=== PATIENT | male | born 1960 | race Caucasian/White ===

== ENCOUNTER 2020-07-21 10:52 | Outpatient (CLI) | payer MEDICARE, SELFPAY ==
--- NOTE | ~2020-07-21 | XR_ITS ---
EXAMINATION: XR chest 2V 07/21/2020 11:13 INDICATION: Dyspnea PROCEDURE: 2 view chest COMPARISON: No prior studies for comparison. FINDINGS: The lungs are clear. The cardiomediastinal silhouette is within normal limits. There are no pleural effusions. There is no pneumothorax suspected. IMPRESSION: 1: NO ACUTE CARDIOPULMONARY DISEASE. Reviewed, dictated and finalized at location B. [facility]
== END 2020-07-21 10:53 | disposition home or self-care (01) ==
PROVIDERS: PCP Internal Medicine; Visit Provider Nurse Practitioner Family
DX: R06.00 Dyspnea, unspecified (principal); R05 Cough
CPT/HCPCS: 71046

== ENCOUNTER 2020-08-23 12:05 | Outpatient (CLI) | payer MEDICARE, SELFPAY ==
--- NOTE | 2020-08-23 12:59 | ECHO_ITS ---
Patient Info Name: Tom Solis Age: 59 years : 1960 Gender: Male Ht: 71 in Wt: 310 lbs BSA: 2.72 m2 HR: 86 bpm BP: 160 / 100 mmHg Technical Quality: Good Exam Date: 08/23/2020 1:13 PM Exam Location: [facility] Patient Status: Outpatient Admit Date: 08/23/2020 Staff Ordering Physician: Adam Leyva APRN Commutator Tester: Kathya Martin RDCS Attending Provider: Adam Leyva APRN Referring Physician: Gordon ELLINGTON; Exam Type: CA echo doppler color flow Study Info Indications - lobato Complete two-dimensional, color flow and Doppler transthoracic echocardiogram is performed. Summary 1. Complete two-dimensional, color flow and Doppler transthoracic echocardiogram is performed. 2. Left ventricular chamber dimension is normal. 3. Left ventricular systolic function is normal, estimated at 60-65%. 4. The left ventricular diastolic function is grade I diastolic dysfunction. 5. No pulmonary hypertension, estimated pulmonary arterial systolic pressure is 36 mmHg. Left Ventricle Tissue doppler is not performed. Left ventricular chamber dimension is normal. Left ventricular systolic function is normal, estimated at 60-65%. The left ventricular diastolic function is grade I diastolic dysfunction. Right Ventricle Right ventricular systolic function is normal. TAPSE is not performed. Right ventricular chamber dimension is normal. Left Atria Left atrial chamber dimension is normal. Right Atria Right atrial chamber dimension is normal. Aortic Valve The aortic valve is trileaflet. There is no aortic valve stenosis. There is no aortic valve regurgitation. Pulmonic Valve There is no pulmonic regurgitation. Mitral Valve There is no mitral valve stenosis. There is no mitral valve regurgitation. Tricuspid Valve There is no tricuspid valve regurgitation. No pulmonary hypertension, estimated pulmonary arterial systolic pressure is 36 mmHg. Pericardium/Pleural There is no pericardial effusion. Inferior Vena Cava Normal inferior vena cava with >50% collapse upon inspiration consistent with normal right atrial pressure, 5 mmHg. Aorta The aortic root size at the sinus of Valsalva is normal. Left Ventricular Outflow Tract Name Value Normal LVOT 2D LVOT Diameter 2.1 cm LVOT Doppler LVOT Peak Gradient 11 mmHg LVOT Mean Gradient 5 mmHg LVOT VTI 31 cm LVOT VTI/AV VTI Ratio 0.9 LVOT Stroke Volume 109 ml LVOT CO 20.1 l/min LVOT CI 7.4 l/min/m2 Pulmonic Valve Name Value Normal PV Doppler PV Peak Gradient 5 mmHg Mitral Valve Na
--- NOTE | 2020-08-23 16:23 | WPDSIXMINUTE ---
Six Minute Walk This is a 6 minutes walk test. The test was performed and interpreted in accordance with the 2014 ERS/ATS task force guidelines. Findings: The patient's resting room air oxygen saturation measured by pulse oximetry was 98% and her heart rate was 94 bpm. Patient ambulated for 290 meters and oxygen saturation remained 98 to 99%. Heart rate at the end of the study was 125 bpm. There are no prior studies for comparison.
--- NOTE | 2020-08-23 16:24 | P.PCNPFT_ITS ---
PFT Interpretation This is a pulmonary function test with pre and post-bronchodilator spirometry, plethysmography and diffusing capacity. The test was performed and results interpreted in accordance with the 2019 and 2005 ATS/ERS Task Force guidelines respectively using the Global Lung Function Initiative-2012 reference equations. Patient demonstrated good effort and c ooperation. Reproducibility criteria were met. The quality of the pre bronchodilator spirometry maneuver was Grade A and post bronchodilator spirometry maneuver was Grade C. Findings: Spirometry: there is decreased maximal expiratory airflow at low lung volumes with a mildly concave expiratory flow tracing. The contour the inspiratory flow tracing is normal. The pre bronchodilator FVC is 3.18 L, 65% predicted. The pre bronchodilator FEV1 is 2.49 L, 65% predicted. The FEV1: FVC ratio is 78. The post bronchodilator FVC is 3.6 to L representing a 14% increase. The post bronchodilator FEV1 is 2.8 L, representing a 16% increase. Of note, the slow vital capacity is 3.69 L and the FEV1:slow vital capacity ratio is 67%. Plethysmography: The total lung capacity is 7.90 L, 110% predicted. Functional residual capacity is 4.26 L, 115% predicted. The residual volume is 4.21 L, 189% predicted. Diffusing capacity: The absolute diffusion capacity is 26.8, 91% predicted. The diffusing capacity corrected for alveolar volume is 6.06, 142% predicted. Impression: In obese patients, the decreased expiratory air flows at low lung volumes with a normal FEV1:FVC ratio but a decreased FEV1:Slow vital capacity ratio of 67% coupled with a low FEV1 (65% predicted) indicates there is a moderate obstructive abnormality. There is significant improvement after inhaling a single dose of albuterol. The increase in residual volume is consistent with air trapping from an obstructive abnormality. The absolute diffusing capacity is normal and increased when corrected for alveolar volume. There are no prior studies for comparison
== END 2020-08-23 12:06 | disposition home or self-care (01) ==
PROVIDERS: PCP Internal Medicine; Visit Provider Nurse Practitioner Family
DX: R06.00 Dyspnea, unspecified (principal); R94.2 Abnormal results of pulmonary function studies
CPT/HCPCS: 93306; 94060; 94618; 94726; 94729

== ENCOUNTER 2020-10-24 08:43 | Outpatient (CLI) | payer MEDICARE, SELFPAY ==
--- NOTE | 2020-10-28 13:02 | WPDMETH ---
Methacholine Procedure Perform Procedure Performed Methacholine Challenge Methacholine Challenge Methacholine Challenge: Methacholine Challenge Test: This study met all criteria for ATS standards Interpretation: This is a positive methacholine challenge test with a PC 20 FEV1 of 1.90
== END 2020-10-24 08:44 | disposition home or self-care (01) ==
PROVIDERS: PCP Internal Medicine; Visit Provider Nurse Practitioner Family
DX: R06.00 Dyspnea, unspecified (principal); R94.2 Abnormal results of pulmonary function studies
CPT/HCPCS: 94070; J7674

== ENCOUNTER 2022-02-06 06:32 | Outpatient (CLI) | payer MEDICARE, SELFPAY ==
--- NOTE | ~2022-02-06 | CT_ITS ---
EXAMINATION: CT abdomen pelvis w con DATE: 02/06/2022 07:37 INDICATION: Abnormal PSA. Occasional prostate pain. TECHNIQUE: Computed tomography (CT) of the abdomen and pelvis was performed with 200 CC Omnipaque 350 intravenous contrast. Automated exposure control and iterative reconstruction technique were employe d. Exam dose: 3184.02 mGy-cm total exam DLP. COMPARISON: 01/15/2007 CT abdomen FINDINGS: The lung bases are clear of infiltrate or consolidation. Normal heart size. No pericardial or pleural effusion. The liver, spleen are unremarkable. Status post cholecystectomy. No bile duct dilatation. There is pa ncreatic atrophy. No pancreatic mass lesion or calcification or ductal dilatation. Normal morphology of the adrenal glands. There are parapelvic left renal cysts. There are a couple of approximately 8 mm exophytic left renal cysts. No urinary tract calculus or hydroureteronephrosis. The urinary bladder is unremarkable. There is mod erate prostate enlargement. Mild bilateral fat containing inguinal hernias. Normal caliber of the abdominal aorta. No intraperitoneal or retroperitoneal or pelvic mass lesion or adenopathy or ascites. Normal appendix. No bowel obstruction or intraperitoneal free air. Small fat-containing umbilical hernia. There is a supraumbilical ventral abdominal wall hernia with a pproximately 6.5 cm wide mouth, containing a loop of nonobstructed small bowel. Diffuse idiopathic skeletal hyperostosis of the thoracic spine. No suspicious osteolytic or osteoblastic lesions are noted. IMPRESSION: Moderate prostate enlargement Status post cholecystectomy Pancreatic atrophy Parapelvic and up to 8 mm exophytic cortical left renal cysts Mild bilateral fat containing inguinal hernias Supraumbilical up to 6.5 cm wide mouth ventral abdominal wall hernia containing a loop of nonobstruct ed small bowel Small fat-containing umbilical hernia Normal appendix Reviewed, dictated and finalized at Location A. Reviewed, dictated and finalized at location B. IMPRESSION: Moderate prostate enlargement Status post cholecystectomy Pancreatic atrophy Parapelvic and up to 8 mm exophytic cortical left renal cysts Mild bilateral fat containing inguinal hernias Supraumbilical up to 6.5 cm wide mouth ventral abdominal wall hernia containing a loop of nonobstructed small bowel Small fat-containing umbilical hernia Normal appendix
--- NOTE | ~2022-02-06 | NM_ITS ---
EXAMINATION: NM bone scan whole body DATE: 02/06/2022 13:01 INDICATION: Abnormal PSA level TECHNIQUE: 25.5 mCi Tc-99m HDP was administered intravenously. Delayed whole-body scintigrams were o btained. COMPARISON: Chest radiograph and CT abdomen and pelvis dated 02/06/22 and cervical spine radiographs d ated 08/01/2017 FINDINGS: Mild thoracic levoscoliosis. Likely degenerative joint centered uptake at the bilateral acromioclavic ular joints and knees and at the right L4-L5 facet joints where there is severe osteoarthritis eviden t on the prior radiographs. Mild uptake at the lower cervical spine corresponding to severe degenerat rashad disc disease on the prior radiographs. There is round region of mild uptake projecting over the s oft tissues of the inferior right buttock caudal to the level of the right hip and ischial tuberosity as well as a subtle linear region of increased activity projecting over the medial side of the more distal right thigh which appears to extend slightly beyond the level of the skin which are likely art ifactual, potentially urine contamination. No correlate identified in the region of the inferior righ t buttock on the CT images. No other suspicious foci of abnormal bone uptake to suggest metastatic di sease. IMPRESSION: 1. No evident metastatic disease. Reviewed, dictated and finalized at location A.
--- NOTE | ~2022-02-06 | XR_ITS ---
XR chest 2V DATE: 02/06/2022 06:52 INDICATION: Abnormal PSA TECHNIQUE: PA and lateral views COMPARISON: 07/21/2020 2 view chest FINDINGS: Normal heart size. No hilar or mediastinal enlargement. No pulmonary infiltrate or consolid ation, pleural effusion or pulmonary vascular congestion or pneumothorax. Status post lower anterior cervical spine surgical fusion. Degenerative spurring scoliosis of the thoracic and lumbar spine. IMPRESSION: No active cardiopulmonary disease Reviewed, dictated and finalized at location B.
[2022-02-06 07:09] LABS: Estimated Glomerular Filt Rate > 60
== END 2022-02-06 06:33 | disposition home or self-care (01) ==
PROVIDERS: PCP Internal Medicine; Visit Provider Urology
DX: R97.20 Elevated prostate specific antigen [PSA] (principal); N40.0 Benign prostatic hyperplasia without lower urinary tract symptoms; Z90.49 Acquired absence of other specified parts of digestive tract; N28.1 Cyst of kidney, acquired; K40.20 Bilateral inguinal hernia, without obstruction or gangrene, not specified as recurrent; K42.9 Umbilical hernia without obstruction or gangrene
CPT/HCPCS: 71046; 74177; 78306; A9561; Q9967

== ENCOUNTER 2022-04-03 11:52 | Outpatient (CLI) | payer MEDICARE, SELFPAY ==
--- NOTE | 2022-04-03 13:07 | ECG_ITS ---
Measurements Intervals [place] Rate: 79 P: 19 SD: 130 QRS: 6 QRSD: 100 T: 29 QT: 336 QTc: 386 Interpretive Statements SINUS RHYTHM BASELINE ARTIFACT POOR R-WAVE PROGRESSION BORDERLINE ECG NO PREVIOUS ECG AVAILABLE FOR COMPARISON Electronically Signed On 04-03-2022 16:22:54 CDT by Rico Vazquez M.D.
[2022-04-03 13:51] LABS: Basophils Percent Auto 0.6 % (0.2-1.2); Eosinophils Absolute Auto 0.1 K/mm3 (0-0.3); Immature Granulocyte Absolute 0.02 K/mm3 (0.00-0.031); Immature Granulocyte Percent A 0.3 % (0-0.5); Lymphocytes Absolute Auto 1.66 K/mm3 (0.9-3.2); Lymphocytes Percent Auto 23.6 % (18.3-44.2); Mean Corpuscular HGB Conc 31.8 g/dl (32-36); Mean Corpuscular Hemoglobin 29.9 pg (26-34); Mean Platelet Volume 9.6 fl (7.4-10.4); Monocytes Absolute Auto 0.6 K/mm3 (0.1-0.6); Monocytes Percent Auto 9.1 % (2.6-8.5); Neutrophils Absolute Auto 4.6 K/mm3 (1.3-6.7); Neutrophils Percent Auto 65.4 % (45.5-73.1); Platelet Count Result 293 k/mm3 (150-375); Red Blood Count 4.68 M/mm3 (4.6-6.20); Red Cell Distribution Width 13.1 % (11.5-14.5)
[2022-04-03 14:00] LABS: Add Urine Microscopic? YES; Appearance Urine Cloudy (Clear); Bilirubin Urine Negative (Negative); Blood Urine Negative (Negative); Color Urine Yellow (Yellow); Glucose Urine UA Negative (Negative); Ketones Urine Negative (Negative); Leukocyte Esterase Ur Negative LEU/UL (Negative); Mucus Urine Rare /lpf; Nitrate Urine Negative (Negative); Protein Urine 2+ mg/dL (Negative); Specific Grav Ur 1.021 (1.001-1.035); Squamous Epithelial Cell Urine Occasional /hpf (Few); Urobilinogen Urine Negative mg/dL (<2.0); WBC Urine 0-3 /hpf
[2022-04-03 14:02] LABS: Prothrombin Time 12.6 Seconds (11.1-14.7)
[2022-04-03 14:03] LABS: Partial Thromboplastin Time 28.6 SECONDS (22.3-36.8)
[2022-04-03 14:09] LABS: Alanine Aminotransferase 48 U/L (6-50); Albumin Level 4.8 g/dL (3.5-5.1); Alkaline Phosphatase 88 U/L (38-126); Anion Gap 18 mmol/L (8-16); Aspartate Amino Transferase 41 U/L (17-59); Bilirubin,Total 0.5 mg/dL (0.2-1.3); Blood Urea Nitrogen 16 mg/dL (9-20); Carbon Dioxide 27 mmol/L (22-30); Chloride 98 mmol/L (98-107); Estimated Glomerular Filt Rate > 60; Glucose 93 mg/dL (65-110); Sodium 143 mmol/L (137-145)
== END 2022-04-03 11:53 | disposition home or self-care (01) ==
LOC: ANHSURGERY 11:58
PROVIDERS: PCP Internal Medicine; Visit Provider Urology
DX: C61 Malignant neoplasm of prostate (principal); Z01.818 Encounter for other preprocedural examination
CPT/HCPCS: 36415; 80053; 81001; 85025; 85610; 85730; 93005

== ENCOUNTER 2022-04-18 15:41 | Inpatient (IN) | payer MEDICARE, SELFPAY ==
--- NOTE | 2022-04-03 12:02 | PC.NURSE ---
Report to the Outpatient Waiting Room, entrance under the green pavilion located off [facility], at time __6:00AM on date ___04/18/22____. Planned Procedure Time: __7:30AM . Time changes happen often and if your time is changed the preop area will call you the afternoon before. - You and your visitor will be asked to self-screen and do not enter if you have any COVID symptoms. - We encourage only one visitor and NO visitors under age 16 are allowed at this time. Your visitor will receive communication by the phone number that is given day of service. - The patient visitor is requested to social distance or may leave the building when not with patient due to restrictions. - A mask is required within the hospital. Patients may have clear liquids (water, carbonated beverages, clear teas, apple juice) until 3 hours prior to surgery with a maximum of 20 ounces. - No food from midnight until time of surgery Take the following medications with a SIP of water the morning of surgery: __SYMBICORT INHALER, ALBUTEROL INHALER NEEDED, ESCITALOPRAM Medications to discontinue per physician ___HOLD ALL VITAMINS/SUPPLEMENTS 3 DAYS PRE-OP. PT STATES HOLD FOR [address] DAMIAN- LAST DOSE 04/11/22 Please no make-up, nail ugandan, hairspray, perfume, deodorant, or body powder the day of surgery. No jewelry (including any body piercings) or valuables the day of surgery, leave them at home. Please take a shower or bath the night before, or the morning of, surgery with an antibacterial soap. Wear comfortable, loose fitting clothing. Children are encouraged to wear pajamas. - Jewelry must be removed prior to entering the operating room. Rings and piercings that are not removed may be cut off. - The hospital will not accept responsibility for valuables. - Please leave all valuables, including medications, at home the day of surgery. If you are going home after surgery, a licensed grab driver must drive you home. - NO public transportation without another adult. - We recommend that an adult stay with you for 24 hours following discharge. - We also recommend that you do not drive, make important decision, drink alcoholic beverages, or take any drugs that were not prescribed by your health care provider for at least 24 hours after your discharge time.. Follow any additional instructions given to you from your surgeon. HIBICLENS SHOWER MORNING OF SURGERY FLEETS ENEMA/FOLLOW BOWEL PREP If you or anyone in your household have experienced Covid symptoms in the past week, please notify your surgeon or the nurse liaison at the phone number below for possible testing. Telephone instructions given to ___PATIENT and asked if any additional questions and then verbalized understanding. Patient advised to call surgeon office or pre surgery nurse liaison [phone] if any additional questions.
[2022-04-03 12:12] VITALS: BP 133/85; PULSE 81; RESP 18; TEMP 36.9; O2SAT 97; BMI 41.4
--- NOTE | 2022-04-12 08:14 | PM.IMHP ---
H&P: HPI History of Present Illness Date/Time: 04/12/22 08:14 Chief Complaint: Prostate cancer Narrative: 61-year-old recently found to have PSA of 42.9. Prostate ultrasound and biopsy revealed adenocarcinoma the prostate in 12 of 12 cores. The Barton grade varied from Chrissy 7 to Chrissy 8 with 2 cores having intraductal cancer components. Staging CT scan the abdomen and pelvis with contrast, bone scan and chest x-ray showed no evidence of metastatic disease. He does have, by both physical exam and CT scan a large ventral abdominal hernia. I have had careful discussion with the patient about therapeutic options for his high risk prostate cancer including radiation therapy with androgen deprivation and attempted robotic prostatectomy. He has opted to proceed with robotic prostatectomy. He has seen Dr. Tate consultation preoperatively who his agreed to assist in attempt repair of his ventral abdominal wall hernia. He is aware the risk of these procedures including, but not limited to, adverse cardiopulmonary events, persistent prostate cancer with need for additional / adjuvant therapy, rectal injury erectile dysfunction, urinary incontinence and recurrent ventral hernia. Review of Systems Cardiovascular: Cardiovascular: Denies chest pain, Denies lightheadedness, Denies palpitations and Denies dyspnea Respiratory: Respiratory: Denies dyspnea Gastrointestinal: Gastrointestinal: Denies diarrhea, Denies nausea and Denies vomiting Genitourinary: Genitourinary: Denies hematuria and Denies dysuria Endocrine: Endocrine: Denies palpitations PMFSH Past Medical History Medical History Asthma Benign essential hypertension BPH (benign prostatic hyperplasia) Chronic low back pain Diabetes A1C 06/27/18 = 6 Hx of gout Iron deficiency anemia Major depressive disorder, recurrent, unspecified Obstructive and reflux uropathy, unspecified DIONY (obstructive sleep apnea) Osteoarthritis of knee Prostate cancer RLS (restless legs syndrome) Surgical History Surgical History H/O cervical spine surgery History of bladder surgery Status post cholecystectomy Family History Family History Mother Hypertension Patient's mother is in good health Cerebrovascular accident Sibling Family history of allergic disorder Father Carcinoma of colon Patient's father is in good health Grandparent Diabetes mellitus Other Asthma Family history of cardiovascular disease Social History Social History Smoking packs per day: 0.5 Smoking cigarettes per day: 10.0 Years smoked: 10 Smoking pack-years: 5.00 Smoking status: Former smoker Tobacco type: cigarettes Second hand tobacco smoke exposure: Yes () Smoking end date: 12/08/99 Alcohol intake: never Substance use: never Substance use type: does not use Additional living arrangements comments: Gender identity (if verbalized by the patient): Male Spiritual care concerns: No Meds Home Medications and Allergies Home Medications Medication Instructions Recorded Confirmed Type finasteride 5 mg tablet 5 mg PO DAILY 10/28/19 04/03/22 History escitalopram oxalate 10 mg tablet 10 mg PO DAILY #90 tabs 07/16/21 04/03/22 Rx budesonide-formoterol HFA 80 See Rx Instructions .Route 09/18/21 04/03/22 Rx mcg-4.5 mcg/actuation aerosol .COMPLEX #30.6 grams inhaler (Symbicort) albuterol sulfate 90 mcg/actuation See Rx Instructions .Route 09/25/21 04/03/22 Rx aerosol inhaler .COMPLEX #51 grams fenofibrate 160 mg tablet See Rx Instructions .Route 11/12/21 04/03/22 Rx .COMPLEX #90 tabs losartan 50 mg tablet 50 mg PO DAILY #90 tabs 01/11/22 04/03/22 Rx cholecalciferol (vitamin D3) 1,250 1,250 mcg PO WEEKLY #12 caps
[2022-04-18] VITALS (12 sets, daily range): BP systolic 121–162; BP diastolic 68–86; PULSE 86–104; RESP 16–31; TEMP 36–37; O2SAT 92–98
[2022-04-18] MEDS: LACTATED RINGERS 1,000 ML 30 ML IV CONT ×2 (06:25→12:47)
[2022-04-18 06:42] LABS: Glucose Point of Care 108 mg/dl (65-105)
--- NOTE | 2022-04-18 07:02 | WPDANESEPPF ---
Anes - Initial Pre Proc Eval Procedure: Operation Date: 04/18/22 07:30 Proposed Procedures p Robotic Assisted Laparoscopic Prostatectomy with Bilateral Pelvic Lymph Node Dissection,with Foreskin Stretching Possible Dorsal Slit, - Lavelle Quintero MD s Robotic Assisted Incarcerated Incisional Hernia Repair with Mesh - Bridget Tate MD Date/Time: 04/18/22 07:02 Surgeon: Lavelle Quintero MD Pre Op Diagnosis: prostate cancer, [employer] Hernia Patient Data Age: 61 Gender: M Height: 1.8 m Weight: 132.7 kg Last Vital Signs Temp 36.9 C 04/03/22 12:12 Pulse 81 04/03/22 12:12 Resp 18 04/03/22 12:12 BP 133/85 04/03/22 12:12 Pulse Ox 97 04/03/22 12:12 O2 Del Method Room Air 04/03/22 12:12 Allergies Allergy/AdvReac Type Severity Reaction Status Date / Time allopurinol Allergy Unknown hives Verified 04/18/22 06:08 Home Medications Medication Instructions Recorded Confirmed Type finasteride 5 mg tablet 5 mg PO DAILY 10/28/19 04/18/22 History escitalopram oxalate 10 mg tablet 10 mg PO DAILY #90 tabs 07/16/21 04/18/22 Rx budesonide-formoterol HFA 80 See Rx Instructions .Route 09/18/21 04/03/22 Rx mcg-4.5 mcg/actuation aerosol .COMPLEX #30.6 grams inhaler (Symbicort) albuterol sulfate 90 mcg/actuation See Rx Instructions .Route 09/25/21 04/03/22 Rx aerosol inhaler .COMPLEX #51 grams fenofibrate 160 mg tablet See Rx Instructions .Route 11/12/21 04/18/22 Rx .COMPLEX #90 tabs losartan 50 mg tablet 50 mg PO DAILY #90 tabs 01/11/22 04/18/22 Rx cholecalciferol (vitamin D3) 1,250 1,250 mcg PO WEEKLY #12 caps 02/05/22 04/18/22 Rx mcg (50,000 unit) capsule metformin 1,000 mg tablet See Rx Instructions .Route 02/18/22 04/18/22 Rx .COMPLEX #180 tabs ropinirole 3 mg tablet See Rx Instructions .Route 02/22/22 04/18/22 Rx .COMPLEX #90 tabs ferrous sulfate 325 mg (65 mg See Rx Instructions .Route 03/08/22 04/18/22 Rx iron) tablet .COMPLEX #90 tabs hydrocodone 10 mg-acetaminophen 1 tablet PO Q6-8H PRN Pain 04/03/22 04/03/22 History 325 mg tablet hydrocodone 5 mg-acetaminophen 325 1 - 2 tablet PO Q6-8H PRN Pain 04/03/22 04/03/22 History mg tablet ufyftolm-agig-ycfjq acid 400 1 tablet PO DAILY 04/03/22 04/18/22 History mcg-lycopene 600 mcg-ginkgo 120 mg tablet Laboratory Tests 04/18/22 06:40 POC Capillary Glucose 108 mg/dl H mg/dl (65-105) Patient hx anesthesia problems: none Family hx anesthesia problems: none Results Review: All pre-operative results and documents have been reviewed as part of the pre-operative evaluation. [facility] Past Medical History Medical History Asthma Benign essential hypertension BPH (benign prostatic hyperplasia) Chronic low back pain Diabetes A1C 06/27/18 = 6 Hx of gout Iron deficiency anemia Major depressive disorder, recurrent, unspecified Obstructive and reflux uropathy, unspecified DIONY (obstructive sleep apnea) Osteoarthritis of knee Prostate cancer RLS (restless legs syndrome) Surgical History Surgical History H/O cervical spine surgery History of bladder surgery Status post cholecystectomy Family History Family History Mother Hypertension Patient's mother is in good health Cerebrovascular accident Sibling Family history of allergic disorder Father Carcinoma of colon Patient's father is in good health Grandparent Diabetes mellitus Other Asthma Family history of cardiovascular disease Social History Social History Smoking packs per day: 0.5 Smoking cigarettes per day: 10.0 Years smoked: 10 Smoking pack-years: 5.00 Smoking status: Former smoker Tobacco type: cigarettes Second hand tobacco smoke exposure: Yes () Smoking end
--- NOTE | 2022-04-18 07:21 | WPDHPUPDATE1 ---
History and Physical Update Update Date/Time: 04/18/22 07:21 History and Physical has been reviewed, including an updated exam of the patient. There are NO changes in the patient's condition. Risks, benefits, and alternatives have been discussed and questions answered. Patient agrees to proceed with procedure.
--- NOTE | 2022-04-18 07:29 | PM.IMHP ---
H&P: HPI History of Present Illness Date/Time: 04/18/22 07:29 Chief Complaint: prostate cancer, recurrent ventral incisional hernia Narrative: Tom is a 61 y/o male who presents to the office accompanied by his at the request of Dr. Quintero for evaluation of a bulge to the right and above his umbilicus. He states the bulge has been present for the past 6 months. He denies any pain or increase in size. He denies any issues with urinating or with BM's. Dr. Quintero would like to coordinate surgery, he will be doing a prostatectomy. Review of Systems Review of Systems: All systems reviewed & are unremarkable except as noted in HPI and below PMFSH Past Medical History Medical History Asthma Benign essential hypertension BPH (benign prostatic hyperplasia) Chronic low back pain Diabetes A1C 06/27/18 = 6 Hx of gout Iron deficiency anemia Major depressive disorder, recurrent, unspecified Obstructive and reflux uropathy, unspecified DIONY (obstructive sleep apnea) Osteoarthritis of knee Prostate cancer RLS (restless legs syndrome) Surgical History Surgical History H/O cervical spine surgery History of bladder surgery Status post cholecystectomy Family History Family History Mother Hypertension Patient's mother is in good health Cerebrovascular accident Sibling Family history of allergic disorder Father Carcinoma of colon Patient's father is in good health Grandparent Diabetes mellitus Other Asthma Family history of cardiovascular disease Social History Social History Smoking packs per day: 0.5 Smoking cigarettes per day: 10.0 Years smoked: 10 Smoking pack-years: 5.00 Smoking status: Former smoker Tobacco type: cigarettes Second hand tobacco smoke exposure: Yes () Smoking end date: 12/08/99 Alcohol intake: never Substance use: never Substance use type: does not use Living arrangements: with family Additional living arrangements comments: Gender identity (if verbalized by the patient): Male Spiritual care concerns: No Meds Home Medications and Allergies Home Medications Medication Instructions Recorded Confirmed Type finasteride 5 mg tablet 5 mg PO DAILY 10/28/19 04/18/22 History escitalopram oxalate 10 mg tablet 10 mg PO DAILY #90 tabs 07/16/21 04/18/22 Rx budesonide-formoterol HFA 80 See Rx Instructions .Route 09/18/21 04/03/22 Rx mcg-4.5 mcg/actuation aerosol .COMPLEX #30.6 grams inhaler (Symbicort) albuterol sulfate 90 mcg/actuation See Rx Instructions .Route 09/25/21 04/03/22 Rx aerosol inhaler .COMPLEX #51 grams fenofibrate 160 mg tablet See Rx Instructions .Route 11/12/21 04/18/22 Rx .COMPLEX #90 tabs losartan 50 mg tablet 50 mg PO DAILY #90 tabs 01/11/22 04/18/22 Rx cholecalciferol (vitamin D3) 1,250 1,250 mcg PO WEEKLY #12 caps 02/05/22 04/18/22 Rx mcg (50,000 unit) capsule metformin 1,000 mg tablet See Rx Instructions .Route 02/18/22 04/18/22 Rx .COMPLEX #180 tabs ropinirole 3 mg tablet See Rx Instructions .Route 02/22/22 04/18/22 Rx .COMPLEX #90 tabs ferrous sulfate 325 mg (65 mg See Rx Instructions .Route 03/08/22 04/18/22 Rx iron) tablet .COMPLEX #90 tabs hydrocodone 10 mg-acetaminophen 1 tablet PO Q6-8H PRN Pain 04/03/22 04/03/22 History 325 mg tablet hydrocodone 5 mg-acetaminophen 325 1 - 2 tablet PO Q6-8H PRN Pain 04/03/22 04/03/22 History mg tablet wapsoyjc-vwwc-jzinh acid 400 1 tablet PO DAILY 04/03/22 04/18/22 History mcg-lycopene 600 mcg-ginkgo 120 mg tablet Allergies Allergy/AdvReac Type Severity Reaction Status Date / Time allopurinol Allergy Unknown hives Verified 04/18/22 06:08 Vital Signs Vital Signs - 24 hr 04/18/22 07:10 Temperature 36.0 C L Pulse Ra
--- NOTE | 2022-04-18 07:33 | WPDHPUPDATE1 ---
History and Physical Update Update Date/Time: 04/18/22 07:33 History and Physical has been reviewed, including an updated exam of the patient. There are NO changes in the patient's condition. Risks, benefits, and alternatives have been discussed and questions answered. Patient agrees to proceed with procedure.
--- NOTE | 2022-04-18 10:52 | W.PM.PROC2 ---
Procedure Note - Detailed Date of Procedure 04/18/22 Pre-op Diagnosis Prostate cancer, Incarcerated ventral abdominal hernia, Penile foreskin adhesions Post-op Diagnosis Same Procedure Performed Lysis of the penile foreskin adhesions, robotic assisted radical prostatectomy and bilateral pelvic lymphadenectomy Surgeon Lavelle Quintero MD, Donovan Tate MD Anesthesia General Description of Procedure The patient was brought to the operative suite, where he was prepped and draped in routine sterile fashion while in a dorsal lithotomy, deep Trendelenburg position. The patient has phimosis with penile adhesion to the foreskin. We had talked about doing a circumcision but deferred because of the risk of developing of buried penis. I did free the adhesions with blunt dissection and stretch the foreskin with a hemostat. This made a significant difference in the mobility of the penile shaft. A supraumbilical 8 mm trocar was placed after insufflation of the abdomen with a Veress needle. Three robotic ports were then placed under direct vision. Two of these were placed in the right lower quadrant - 10 cm and 20 cm lateral to, and in line with, the umbilicus. A third robotic trocar was placed 10 cm to the left of the umbilicus, and 20 cm to the left of the umbilicus, a 12 mm standard laparoscopic trocar was placed to be used as an assistant associate professor port. Lastly, a 5 mm trocar was placed in the left upper quadrant midway between the umbilicus and the left robotic trocar. Attention was then turned to the prostatectomy. I opted for a posterior approach in this patient. An incision was made in the parietal peritoneum along the posterior bladder/posterior prostate about 2 cm above the reflection of the peritoneum over the anterior rectum. The seminal vesicles and vas deferens were immediately identified. Dissection is undertaken in a fashion so as to avoid electrocautery as much as possible, particularly near the tips of the seminal vesicles. Dissection was also carried out in the midline so as to avoid any encounters with the ureters. The vas deferens and the seminal vesicles were dissected in their entirety to the base of the prostate. The plane anterior to Denoviller's fascia, anterior to the rectum and posterior to the prostate was then developed. I then dropped the bladder by incising the anterior parietal peritoneum just lateral to the median umbilical ligaments bilaterally. The bladder was dropped from the anterior abdominal and pelvic wall. The endopelvic fascia was identified and incised bilaterally, allowing for dissection of the posterior-lateral aspect of the prostate. The puboprostatic ligaments were transected near their origin from the posterior pubic ramus. This posterior lateral dissection of the prostate is also undertaken in a fashion so as to avoid electrocautery as much as possible. The dorsal vein of the penis is then secured with an 0 -Vicryl ligature. Attention is then turned to the bladder neck. The anterior bladder neck is incised at the vesico-prostatic junction. The previously placed urethral catheter was drawn through the urethrotomy. A very small bladder neck was maintained throughout the remainder of this dissection. The posterior bladder neck was incised in a fashion so as to avoid any injury to the ureteral orifices. Again, the small aperture of the bladder neck was maintained. The previously dissected vas deferens and the seminal vesicles were brought through the posterior bladder neck incision. The lateral prostatic pedicles were then carefully dissected from the lateral aspect of the prostate bilaterally. The prostatic pedicles were secured with Weck clips and transected. The neurovascular bundles were carefully dissected from the posterior-lateral aspect of the prostate. The dorsal vein of the penis was incised with electrocautery. Using cold scissors, the urethra was incised. After withdrawing the previously placed urethral cathet
--- NOTE | 2022-04-18 12:54 | W.PM.PROC2 ---
Procedure Note - Detailed Date of Procedure 04/18/22 Pre-op Diagnosis prostate cancer, incarcerated incisional hernia Post-op Diagnosis Same Procedure Performed Robotic assisted repair incarcerated incisional hernia with mesh Surgeon Bridget Tate MD Anesthesia General Indications 61 year old male presenting with incarcerated incisional hernia and prostate cancer Findings incarcerated supraumbilical hernia measuring approximately 6.5 cm Description of Procedure The patient was in the operating room placed in the modified lithotomy position. The patient was already under general anesthesia secondary to previously performed robotic assisted prostatectomy by Dr. Quintero, please see his full operative report for details that procedure. A time-out was then done to verify the patient's identity as well as the procedure being performed. The patient had a previously placed 12 mm left lower quadrant port. The camera was placed through this port site and under direct visualization, I placed 2 additional 8 mm ports in the left mid and upper abdomen. The robot was then docked to the 3 port sites. I then went to the robotic console. I began by identifying the hernia. A moderate-sized incarcerated hernia was noted in the supraumbilical region. Using graspers, I was able to reduce this hernia. The hernia was noted to contain a large amount of preperitoneal fat and omentum. Once reduced, I also reduced and dissected out the hernia sac. I then closed the approximately 6.5 cm defect with 0 strata fix suture. I then placed a 6x8 [address] mesh into the abdominal cavity. The positional stitch was placed in the middle of the mesh and brought up centering the mesh over the defect. Once this was done, I used 2 0 V lock suture x 3 to circumferentially suture the mesh to the abdominal. Once the mesh was completely sutured in, I was happy with our tension-free repair. The mesh was noted to have good overlap of the defect. I then removed the positioning device. At this point, the robot was undocked. I then slightly enlarged the 12 mm port site in the left lower quadrant and removed the specimen bag containing the prostate and lymph nodes. I then closed the 12 mm port site with a running PDS at the fascial level. All port sites were then closed with 4 O Monocryl subcuticular suture. The patient tolerated the procedure well, is extubated in the operating room postoperative, and transferred to the recovery room in stable condition. Implants 6x[address] mesh Estimated Blood Loss 5 Drains No Packing No Pathology None sent Complications No immediate complications Condition Stable Disposition PACU [facility] Billing Surgery - Charge Forward: Surgery Billing
[2022-04-18 13:03] LABS: Glucose Point of Care 134 mg/dl (65-105)
[2022-04-18] MEDS: fentaNYL CITRATE INJ (*CRX) 100 MCG/2 ML VIAL 25 MCG IV PUSH ×5 (13:13→13:46)
--- NOTE | 2022-04-18 14:12 | ADMGEN ---
This patient, Tom Solis, was admitted to Medical Room 348-. Patient/family oriented to hospital policies and general routines including ID bracelet, bed and alarms, visiting hours, pain management, procedures, bathroom and other care routines, personal items, smoking policy, room service/diet, and visiting hours. Information on how to activate the Rapid Response Team has been discussed. Patient/Family are encouraged to report perceived risks to care and to ask questions if they do not understand what they are told or what they should do.
[2022-04-18] MEDS: LACTATED RINGERS 1,000 ML 125 ML IV CONT (14:28)
[2022-04-18] MEDS: KETOROLAC 30 MG/ML VIAL (*BKC) IV PUSH ×2 (16:44→22:33)
[2022-04-18 16:49] LABS: Glucose Point of Care 137 mg/dl (65-105)
--- NOTE | 2022-04-18 17:10 | PC.NURSE ---
home meds reviewed in pre-op and MD has already addressed meds, reviewed list for accuracy with pt
[2022-04-18] MEDS: metFORMIN HCL 500 MG TABLET 1000 MG BY MOUTH (18:14)
[2022-04-18] MEDS: FENOFIBRATE 160 MG TABLET PO (18:14)
[2022-04-18] MEDS: rOPINIRole HCL 1 MG TABLET 3 MG BY MOUTH (18:15)
[2022-04-18] MEDS: FLUTICASONE/SALMETEROL 45-21 MCG (*SP) INHALER 2 PUFF INHALATION (20:20)
[2022-04-18] MEDS: FERROUS SULFATE 324 MG TABLET BY MOUTH (22:36)
[2022-04-18 23:32] LABS: Glucose Point of Care 109 mg/dl (65-105)
[2022-04-19 00:11] VITALS: BP 136/67; PULSE 87; RESP 18; TEMP 37; O2SAT 99
[2022-04-19] MEDS: HYDROmorphone HCL INJ (*CRX) 1 MG/ML SYR 0.5 MG IV PUSH ×5 (02:21→15:22)
[2022-04-19 04:41] VITALS: BP 128/64; PULSE 95; RESP 20; TEMP 36.2; O2SAT 98
[2022-04-19] MEDS: LACTATED RINGERS 1,000 ML 125 ML IV CONT (05:21)
[2022-04-19 06:09] LABS: Anion Gap 14 mmol/L (8-16); Blood Urea Nitrogen 19 mg/dL (9-20); Calcium 7.8 mg/dL (8.4-10.2); Carbon Dioxide 27 mmol/L (22-30); Chloride 102 mmol/L (98-107); Estimated CRCL calculation 108 ml/min; Estimated Glomerular Filt Rate > 60; Glucose 115 mg/dL (65-110); Potassium 3.8 mmol/L (3.4-5.0); Sodium 143 mmol/L (137-145)
[2022-04-19 06:18] LABS: Hematocrit 35.7 % (42.0-52.0); Hemoglobin 11.3 g/dL (14.0-18.0)
--- NOTE | 2022-04-19 07:31 | WPDUROPN2 ---
Progress Note: A&P Assessment and Plan (1) Prostate cancer: Code(s): C61 - Malignant neoplasm of prostate Status: Acute Assessment and Plan: Doing as expected POD #1 RALP and ventral abd. hernia repair. Increase diet/ambulation this morning. Anticipate discharge this afternoon. Subjective Subjective Date/Time Seen: 04/19/22 07:31 Mod. abd. pain but otherwise w/o n/v or other c/o. Review of Systems Cardiovascular: Cardiovascular: Denies chest pain, Denies lightheadedness, Denies palpitations and Denies dyspnea Respiratory: Respiratory: Denies dyspnea Gastrointestinal: Gastrointestinal: Denies belching, Denies diarrhea, Denies nausea, Denies vomiting and Reports other (normal bs and passing flatus) Genitourinary: Genitourinary: Denies hematuria and Denies dysuria Endocrine: Endocrine: Denies palpitations Objective Data Vital Signs Vital Signs: Vital Signs - 24 hr 04/18/22 12:47 04/18/22 13:00 04/18/22 13:15 Temperature 98.1 F Pulse Rate 86 95 98 Respiratory Rate 16 16 22 H Blood Pressure 140/85 156/77 H 162/86 H Pulse Oximetry 96 98 96 Oxygen Delivery Simple Face Mask Simple Face Mask Simple Face Mask Oxygen Flow Rate 8 8 8 Fraction of Inspired Oxygen 04/18/22 13:30 04/18/22 13:45 04/18/22 14:15 Temperature 98.2 F Pulse Rate 101 H 104 H 96 Respiratory Rate 20 31 H 16 Blood Pressure 145/83 H 139/82 137/78 Pulse Oximetry 96 92 97 Oxygen Delivery Room Air Nasal Cannula Oxygen Flow Rate 2 Fraction of Inspired Oxygen 04/18/22 14:30 04/18/22 15:00 04/18/22 16:00 Temperature 98.6 F 98.6 F 97.9 F Pulse Rate 96 97 99 Respiratory Rate 19 18 18 Blood Pressure 131/82 156/82 H 152/72 H Pulse Oximetry 98 97 98 Oxygen Delivery Oxygen Flow Rate Fraction of Inspired Oxygen 04/18/22 21:09 04/18/22 20:49 04/19/22 00:11 Temperature 97.6 F 98.6 F Pulse Rate 87 87 Respiratory Rate 18 18 Blood Pressure 121/68 136/67 Pulse Oximetry 97 96 99 Oxygen Delivery Room Air Oxygen Flow Rate Fraction of Inspired Oxygen 04/19/22 04:41 Temperature 97.1 F L Pulse Rate 95 Respiratory Rate 20 Blood Pressure 128/64 Pulse Oximetry 98 Oxygen Delivery Oxygen Flow Rate Fraction of Inspired Oxygen Intake/Output Intake/Output: Intake & Output 04/16/22 04/17/22 04/18/22 04/19/22 23:59 23:59 23:59 23:59 Intake Total 2840 340 Output Total 960 Balance 2840 -620 Meds/Results Medications: Active Medications Generic Name Dose Route Start Last Admin Trade Name Freq PRN Reason Stop Dose Admin Albuterol 1 - 2 puff 04/18/22 14:15 Albuterol Sulfate (*Sp) Aerosol 1 Puff INHALATION Q4-6H PRN SHORTNESS OF BREATH OR WHEEZIN Dextrose 12.5 gm 04/18/22 14:15 Dextrose 50% 25 Gm/50 Ml Syringe IV PUSH PRN PRN Hypoglycemia Protocol Escitalopram Oxalate 10 mg 04/19/22 09:00 Escitalopram Oxalate 10 Mg Tablet PO DAILY ELENA Fenofibrate 160 mg 04/18/22 14:30 04/18/22 18:14 Fenofibrate 160 Mg Tablet PO 160 mg DAILY ELENA Administration Ferrous Sulfate 324 mg 04/18/22 21:00 04/18/22 22:36 Ferrous Sulfate 324 Mg Tablet BY MOUTH 324 mg Q12HR ELENA Administration Glucagon 1 mg 04/18/22 14:15 Glucagon For Inj 1 Mg Vial IM PRN PRN Hypoglycemia Protocol Glucose 15 gm 04/18/22 14:15 Glucose Oral Gel 15 Gm Of Glucse In 37.5 Gm Tube PO PRN PRN Hypoglycemia Protocol Hydromorphone HCl 0.5 mg 04/18/22 22:36 04/19/22 05:22 Hydromorphone Hcl Inj (*Crx) 1 Mg/Ml Syr IV PUSH 0.5 mg Q2H PRN Administration Pain Rated 7-10 Hyoscyamine 0.125 mg 04/18/22 11:04 Hyoscyamine Sulfate 0.125 Mg Tablet SUBLINGUAL Q4H PRN Bladder Spasm Lactated Ringer's 1,000 mls @ 125 mls/hr 04/18/22 11:05 04/19/22 05:21 Lr - Lactated Ringers Iv IV CONT 125 mls/hr .Q8H ELENA Administration Acetaminophen 1,000 mg in 100 mls @ 400 mls/hr
[2022-04-19 08:08] LABS: Glucose Point of Care 123 mg/dl (65-105)
[2022-04-19] MEDS: FLUTICASONE/SALMETEROL 45-21 MCG (*SP) INHALER 2 PUFF INHALATION ×2 (08:52→20:20)
[2022-04-19] MEDS: LOSARTAN POTASSIUM 50 MG TABLET PO (09:32)
[2022-04-19] MEDS: ESCITALOPRAM OXALATE 10 MG TABLET PO (09:32)
[2022-04-19] MEDS: metFORMIN HCL 500 MG TABLET 1000 MG BY MOUTH ×2 (09:33→17:27)
[2022-04-19] MEDS: FERROUS SULFATE 324 MG TABLET BY MOUTH ×2 (09:33→20:57)
[2022-04-19] MEDS: levoFLOXacin 500 MG TABLET PO (09:33)
[2022-04-19] MEDS: FENOFIBRATE 160 MG TABLET PO (09:33)
[2022-04-19 12:19] LABS: Glucose Point of Care 134 mg/dl (65-105)
[2022-04-19 12:49] VITALS: BP 100/58; PULSE 119; RESP 20; TEMP 36.6; O2SAT 97
[2022-04-19 17:08] LABS: Glucose Point of Care 116 mg/dl (65-105)
[2022-04-19] MEDS: HYDROcodone/acetaminophen (*CRX) 10-325 MG TABLET 1 TAB PO (17:26)
[2022-04-19] MEDS: rOPINIRole HCL 1 MG TABLET 3 MG BY MOUTH (17:28)
[2022-04-19 21:43] VITALS: BP 134/75; PULSE 88; RESP 18; TEMP 36.6; O2SAT 97
[2022-04-19 21:50] LABS: Glucose Point of Care 135 mg/dl (65-105)
[2022-04-20] MEDS: HYDROcodone/acetaminophen (*CRX) 10-325 MG TABLET 1 TAB PO ×3 (00:40→12:36)
[2022-04-20 04:28] VITALS: BP 132/77; PULSE 85; RESP 20; TEMP 36.4; O2SAT 99
[2022-04-20 09:06] LABS: Glucose Point of Care 116 mg/dl (65-105)
[2022-04-20] MEDS: FERROUS SULFATE 324 MG TABLET BY MOUTH (09:20)
[2022-04-20] MEDS: ESCITALOPRAM OXALATE 10 MG TABLET PO (09:20)
[2022-04-20] MEDS: FENOFIBRATE 160 MG TABLET PO (09:20)
[2022-04-20] MEDS: metFORMIN HCL 500 MG TABLET 1000 MG BY MOUTH (09:21)
[2022-04-20] MEDS: LOSARTAN POTASSIUM 50 MG TABLET PO (09:21)
[2022-04-20] MEDS: levoFLOXacin 500 MG TABLET PO (09:21)
[2022-04-20] MEDS: FLUTICASONE/SALMETEROL 45-21 MCG (*SP) INHALER 2 PUFF INHALATION (09:35)
[2022-04-20 09:38] VITALS: O2SAT 97
--- NOTE | 2022-04-20 12:02 | WPDUROPN2 ---
Progress Note: A&P Assessment and Plan (1) Prostate cancer: Code(s): C61 - Malignant neoplasm of prostate Status: Acute Plan POD#2 s/p robotic prostatectomy and ventral hernia repair - tolerating reg diet - passing gas - pain controlled - discharge planning for today. Pt has script for norco from pain management which he filled 2.5 wks ago so [facility] would not fill Dr. Quintero' scrpt for norco. Patient and his state he has no more norco at home ( verified empty bottle) and state he was using it Q8hr for neck pain. I have given him 10 tabs of oxycodone 5 mg to use Q6hr PRN for next few days only for post-surgical pain. I emphasized the need for him to transition off of narcotics over the next few days and can use acetominophen as needed. I sent Dr. Quintero a message making him aware as well. Subjective Subjective Date/Time Seen: 04/20/22 12:02 Tolerating regular diet. +flatus this AM. Ready for discharge Exam Narrative: 61 yo male in NAD Const: General: comfortable and no acute distress HENMT: Face/Nose/Sinus: Normal nares present Mouth: Yes moist mucous membranes Eyes: General: appearance normal, both eyes and all related structures Resp: Effort & Inspection: normal respiratory effort GI: Inspection: non-distended Other: abdomen soft, ND; incisions c/d/i. : Other: rodriguez in place draining yellow urine Psych: Mental Status: mental status grossly normal Objective Data Vital Signs Vital Signs: Vital Signs - 24 hr 04/19/22 12:49 04/19/22 20:54 04/19/22 21:43 Temperature 36.6 C 36.6 C Pulse Rate 119 H 88 Respiratory Rate 20 18 Blood Pressure 100/58 L 134/75 Pulse Oximetry 97 97 Oxygen Delivery Autopap 04/20/22 04:28 04/20/22 01:50 04/20/22 09:38 Temperature 36.4 C Pulse Rate 85 Respiratory Rate 20 Blood Pressure 132/77 Pulse Oximetry 99 97 Oxygen Delivery Autopap Room Air Intake/Output Intake/Output: Intake & Output 04/17/22 04/18/22 04/19/22 04/20/22 23:59 23:59 23:59 23:59 Intake Total 2840 1060 1490 Output Total 1410 550 Balance 2840 -350 940 Meds/Results Medications: Active Medications Generic Name Dose Route Start Last Admin Trade Name Freq PRN Reason Stop Dose Admin Hydrocodone Bitart/Acetaminophen 1 tab 04/19/22 15:27 04/20/22 06:53 Hydrocodone/Acetaminophen (*Crx) 10-325 Mg Tablet PO 1 tab Q6H PRN Administration Pain Rated 7-10 Albuterol 1 - 2 puff 04/18/22 14:15 Albuterol Sulfate (*Sp) Aerosol 1 Puff INHALATION Q4-6H PRN SHORTNESS OF BREATH OR WHEEZIN Dextrose 12.5 gm 04/18/22 14:15 Dextrose 50% 25 Gm/50 Ml Syringe IV PUSH PRN PRN Hypoglycemia Protocol Escitalopram Oxalate 10 mg 04/19/22 09:00 04/20/22 09:20 Escitalopram Oxalate 10 Mg Tablet PO 10 mg DAILY ELENA Administration Fenofibrate 160 mg 04/18/22 14:30 04/20/22 09:20 Fenofibrate 160 Mg Tablet PO 160 mg DAILY ELENA Administration Ferrous Sulfate 324 mg 04/18/22 21:00 04/20/22 09:20 Ferrous Sulfate 324 Mg Tablet BY MOUTH 324 mg Q12HR ELENA Administration Glucagon 1 mg 04/18/22 14:15 Glucagon For Inj 1 Mg Vial IM PRN PRN Hypoglycemia Protocol Glucose 15 gm 04/18/22 14:15 Glucose Oral Gel 15 Gm Of Glucse In 37.5 Gm Tube PO PRN PRN Hypoglycemia Protocol Hyoscyamine 0.125 mg 04/18/22 11:04 Hyoscyamine Sulfate 0.125 Mg Tablet SUBLINGUAL Q4H PRN Bladder Spasm Dextrose 1,000 mls @ 100 mls/hr 04/18/22 14:15 Dextrose 5% 1,000 Ml IVPB PRN PRN Hypoglycemia Protocol Insulin Aspart 2 - 5 units 04/18/22 14:15 04/20/22 09:19 Insulin Aspart (*Bkc) 100 Units/Ml SUB-Q Not Given TIDWM ELENA Protocol Levofloxacin 500 mg 04/19/22 09:00 04/20/22 09:21 Levofloxacin 500 Mg Tablet PO 500 mg DAILY ELENA Administration Losartan Potassium 50 mg 04/19/22 09:00 04/20/22 09:21 Losartan Potassium
[2022-04-20 12:27] LABS: Glucose Point of Care 97 mg/dl (65-105)
--- NOTE | 2022-05-19 07:53 | PM.DS ---
DS: Admitting Diagnosis Discharge Date 04/20/22 Admitting Diagnosis Prostate cancer DS: Summary Hospital Course Hospital Course: This patient was admitted on the morning of his planned robotic prostatectomy.? This procedure was uneventful, as was his postoperative course.? By the evening of the procedure he was sitting at the bedside in tolerating a liquid diet.? The following morning he was ambulating freely and tolerating regular food.? His catheter drainage remained essentially clear throughout.? His postoperative hemoglobin and serum creatinine were unremarkable.? At the time of discharge he has been instructed in appropriate care for his Tucker catheter with both a leg bag and bedside bag.? He will be discharged with plans to follow-up in 1 week with a cystogram. Time Spent with Patient Time attestation: Total time spent providing and/or coordinating discharge services: DS: Data Data Completed and Pending Completed studies during hospitalization: Pending at discharge 04/18/22 11:08 Surgical [PTH] Routine Discharge Plan Discharge Attending physician on discharge: Lavelle Quintero Consulting providers: Bridget Tate ; Carolee Butler Discharging Clinician: Lavelle Quintero Patient Disposition: Home Health Service Activity: other - see discharge instructions Wound Care Instructions: other - see discharge instructions Discharge Instructions: 1) Tucker catheter -> leg bag / bedside bag at night. 2) No lifting/straining >15lbs. x6 weeks. 3) No driving x1-week. 4) Keep abdominal incisions dry until Saturday 04/21 afternoon. 5) Resume normal, pre-operative diet. 6) My office will contact regarding follow-up in 1-week with cystogram. Per Care Coordination Patient has been accepted to have [facility] for RN. ([place] location) [phone]. [facility] is scheduled to see pt next week. RN please fax completed discharge instrucntions to [phone] Dr Butler called you in 10 tabs of oxycodone 5mg tabs to your pharmacy. You may take 1 tab every 6 hours while needed for pain. Do not tahe norco with oxycodone Patient Instructions: Antibiotic Form Stand Alone Forms: General Discharge Information Follow-up/Referrals: Lavelle Quintero MD [Physician] - Discharge Medications: New docusate sodium [Colace] 100 mg capsule 100 mg PO DAILY Qty: 30 0RF hyoscyamine sulfate 0.125 mg tablet 0.125 mg PO Q6H PRN (Reason: bladder spasms) Qty: 20 2RF Continued budesonide-formoterol [Symbicort] 80-4.5 mcg/actuation HFA aerosol inhaler See Rx Instructions .ROUTE .COMPLEX Qty: 30.6 3RF Dose Instruction: USE 2 INHALATIONS BY MOUTH EVERY 12 HOURS , RINSE AND SPIT Rx Instructions: USE 2 INHALATIONS BY MOUTH EVERY 12 HOURS , RINSE AND SPIT albuterol sulfate 90 mcg/actuation HFA aerosol inhaler See Rx Instructions .ROUTE .COMPLEX Qty: 51 2RF Dose Instruction: USE 1 TO 2 INHALATIONS BY MOUTH EVERY 4 TO 6 HOURS NEEDED FOR SHORTNESS OF BREATH OR WHEEZING Rx Instructions: USE 1 TO 2 INHALATIONS BY MOUTH EVERY 4 TO 6 HOURS NEEDED FOR SHORTNESS OF BREATH OR WHEEZING fenofibrate 160 mg tablet See Rx Instructions .ROUTE .COMPLEX Qty: 90 1RF Dose Instruction: TAKE 1 TABLET BY MOUTH DAILY Rx Instructions: TAKE 1 TABLET BY MOUTH DAILY losartan 50 mg tablet 50 mg PO DAILY Qty: 90 1RF Rx Instructions: takes in am metformin 1,000 mg tablet See Rx Instructions .ROUTE .COMPLEX Qty: 180 1RF Dose Instruction: TAKE 1 TABLET BY MOUTH TWICE DAILY Rx Instructions: TAKE 1 TABLET BY MOUTH TWICE DAILY ropinirole 3 mg tablet See Rx Instructions .ROUTE .COMPLEX Qty: 90 4RF Dose Instruction: TAKE 1 TABLET BY MOUTH 1 TO 2 HOURS BEFORE BEDTIME. Rx Instructions: TAKE 1 TABLET BY MOUTH 1 TO 2 HOURS BEFORE BEDTIME. ferrous sulfate 325 mg (65 mg iron) tablet
== END 2022-04-20 14:28 | disposition home health service (06) | DRG 707 ==
LOC: ANHSURGERY 15:51 → ANH3MED 15:51
PROVIDERS: Surgery; Admitting Provider Urology; PCP Internal Medicine; Visit Provider Urology
PROC: 0VT04ZZ Resection of Prostate, Percutaneous Endoscopic Approach (ICD-10-PCS; CPT 55867; principal; 2022-04-18 07:30)
DX: C61 Malignant neoplasm of prostate (principal); K43.0 Incisional hernia with obstruction, without gangrene; F33.9 Major depressive disorder, recurrent, unspecified; N47.1 Phimosis; N40.0 Benign prostatic hyperplasia without lower urinary tract symptoms; I10 Essential (primary) hypertension; G47.33 Obstructive sleep apnea (adult) (pediatric); E11.9 Type 2 diabetes mellitus without complications; G25.81 Restless legs syndrome; M17.9 Osteoarthritis of knee, unspecified; M10.9 Gout, unspecified; D50.9 Iron deficiency anemia, unspecified; J45.909 Unspecified asthma, uncomplicated; M54.50 Low back pain, unspecified; G89.29 Other chronic pain; Z79.899 Other long term (current) drug therapy; Z87.891 Personal history of nicotine dependence
CPT/HCPCS: 36415; 80048; 82948; 85014; 85018; 86850; 86900; 86901; 88305; 88309; 94640; 94660; A9270; C1781; J0131; J0330; J1170; J1885; J2250; J2405; J2704; J3010; J7030; J7120; Q9968

== ENCOUNTER 2022-04-26 11:44 | Outpatient (CLI) | payer MEDICARE, SELFPAY ==
--- NOTE | 2022-04-23 13:10 | PM.DS ---
DS: Admitting Diagnosis Discharge Date 04/21/2022 Admitting Diagnosis Prostate cancer DS: Summary Hospital Course Hospital Course: This patient was admitted on the morning of his planned robotic prostatectomy. This procedure was uneventful, as was his postoperative course. By the evening of the procedure he was sitting at the bedside in tolerating a liquid diet. The following morning he was ambulating freely and tolerating regular food. His catheter drainage remained essentially clear throughout. His postoperative hemoglobin and serum creatinine were unremarkable. At the time of discharge he has been instructed in appropriate care for his Tucker catheter with both a leg bag and bedside bag. He will be discharged with plans to follow-up in 1 week with a cystogram. Time Spent with Patient Time attestation: Total time spent providing and/or coordinating discharge services: Discharge Plan Discharge Patient Disposition: Home, Self-Care Patient Instructions: Antibiotic Form Discharge Medications: No Action finasteride 5 mg tablet 5 mg PO DAILY Hold Instructions: at follow up appointment os-jpij-qqcpy-lycopene-ginkgo 400-600-120 mcg-mcg-mg Tablet 1 tablet PO DAILY Hold Instructions: at follow up appointment cephalexin 500 mg capsule 500 mg PO Q8H Qty: 15 0RF docusate sodium [Colace] 100 mg capsule 100 mg PO DAILY Qty: 30 0RF hyoscyamine sulfate 0.125 mg tablet 0.125 mg PO Q6H PRN (Reason: bladder spasms) Qty: 20 2RF hydrocodone-acetaminophen 10-325 mg tablet 1 tablet PO Q6H PRN (Reason: pain) Qty: 24 0RF escitalopram oxalate 10 mg tablet 10 mg PO DAILY Qty: 90 3RF Rx Instructions: takes in am budesonide-formoterol [Symbicort] 80-4.5 mcg/actuation HFA aerosol inhaler See Rx Instructions .ROUTE .COMPLEX Qty: 30.6 3RF Dose Instruction: USE 2 INHALATIONS BY MOUTH EVERY 12 HOURS , RINSE AND SPIT Rx Instructions: USE 2 INHALATIONS BY MOUTH EVERY 12 HOURS , RINSE AND SPIT albuterol sulfate 90 mcg/actuation HFA aerosol inhaler See Rx Instructions .ROUTE .COMPLEX Qty: 51 2RF Dose Instruction: USE 1 TO 2 INHALATIONS BY MOUTH EVERY 4 TO 6 HOURS NEEDED FOR SHORTNESS OF BREATH OR WHEEZING Rx Instructions: USE 1 TO 2 INHALATIONS BY MOUTH EVERY 4 TO 6 HOURS NEEDED FOR SHORTNESS OF BREATH OR WHEEZING fenofibrate 160 mg tablet See Rx Instructions .ROUTE .COMPLEX Qty: 90 1RF Dose Instruction: TAKE 1 TABLET BY MOUTH DAILY Rx Instructions: TAKE 1 TABLET BY MOUTH DAILY losartan 50 mg tablet 50 mg PO DAILY Qty: 90 1RF Rx Instructions: takes in am cholecalciferol (vitamin D3) 1,250 mcg (50,000 unit) capsule 1,250 mcg PO WEEKLY Qty: 12 1RF Rx Instructions: fridays metformin 1,000 mg tablet See Rx Instructions .ROUTE .COMPLEX Qty: 180 1RF Dose Instruction: TAKE 1 TABLET BY MOUTH TWICE DAILY Rx Instructions: TAKE 1 TABLET BY MOUTH TWICE DAILY ropinirole 3 mg tablet See Rx Instructions .ROUTE .COMPLEX Qty: 90 4RF Dose Instruction: TAKE 1 TABLET BY MOUTH 1 TO 2 HOURS BEFORE BEDTIME. Rx Instructions: TAKE 1 TABLET BY MOUTH 1 TO 2 HOURS BEFORE BEDTIME. ferrous sulfate 325 mg (65 mg iron) tablet See Rx Instructions .ROUTE .COMPLEX Qty: 90 0RF Dose Instruction: TAKE 1 TABLET BY MOUTH TWICE A DAY Rx Instructions: TAKE 1 TABLET BY MOUTH TWICE A DAY
--- NOTE | ~2022-04-26 | XR_ITS ---
EXAMINATION: XR cystogram DATE: 04/26/2022 12:25 INDICATION: Prostate cancer. TECHNIQUE: Water-soluble contrast was gravity-infused through the patient's Tucker catheter. Multiple fluoroscopic images were obtained. Fluoroscopy exposure time was 0.2 minutes. The total number of connor ges was 8. COMPARISON: CT abdomen and pelvis 02/06/2022 FINDINGS: There is no extraluminal leakage of contrast. No ureteral reflux. IMPRESSION: 1. No extraluminal leakage of contrast. Reviewed, dictated and finalized at location A. A COORDINATOR
== END 2022-04-26 11:45 | disposition home or self-care (01) ==
PROVIDERS: PCP Internal Medicine; Visit Provider Urology
DX: C61 Malignant neoplasm of prostate (principal)
CPT/HCPCS: 51600; 74430; Q9967

== ENCOUNTER 2023-01-20 02:59 | Day surgery (SDC) | payer MEDICARE, SELFPAY ==
[2023-01-10 10:00] VITALS: BMI 41.9
[2023-01-20 09:24] VITALS: BP 179/92; PULSE 62; RESP 20; TEMP 36.1; O2SAT 99
[2023-01-20 09:24] LABS: Glucose Point of Care 88 mg/dl (65-105)
[2023-01-20] MEDS: LACTATED RINGERS 1,000 ML 150 ML IV CONT (09:26)
--- NOTE | 2023-01-20 09:51 | P.PNAN_ITS ---
Anes - Initial Pre Proc Eval Procedure: Operation Date: 01/20/23 10:30 Proposed Procedures p Colonoscopy - Drew Ovalle MD Date/Time: 01/20/23 09:51 Surgeon: Drew Ovalle MD Pre Op Diagnosis: hx colon polyps Patient Data Age: 62 Gender: M Height: 1.8 m Weight: 133.2 kg Last Vital Signs Temp 96.9 F L 01/20/23 09:24 Pulse 62 01/20/23 09:24 Resp 20 01/20/23 09:24 BP 179/92 H 01/20/23 09:24 Pulse Ox 99 01/20/23 09:24 O2 Del Method Room Air 01/20/23 09:24 Allergies Allergy/AdvReac Type Severity Reaction Status Date / Time allopurinol Allergy Unknown hives Verified 01/20/23 09:23 Home Medications Medication Instructions Recorded Confirmed Type ferrous sulfate 325 mg (65 mg See Rx Instructions .Route 03/08/22 01/20/23 Rx iron) tablet .COMPLEX #90 tabs cholecalciferol (vitamin D3) 1,250 1,250 mcg PO WEEKLY #12 caps 05/09/22 01/20/23 Rx mcg (50,000 unit) capsule cyclobenzaprine 10 mg tablet 10 mg PO TID PRN muscle spasm #30 07/17/22 01/20/23 Rx tabs fenofibrate 160 mg tablet See Rx Instructions .Route 07/30/22 01/20/23 Rx .COMPLEX #90 tabs metformin 1,000 mg tablet See Rx Instructions .Route 08/27/22 01/20/23 Rx .COMPLEX #180 tabs budesonide-formoterol HFA 80 2 puff inhalation BID #10.2 grams 09/11/22 01/20/23 Rx mcg-4.5 mcg/actuation aerosol inhaler (Symbicort) escitalopram oxalate 10 mg tablet 10 mg PO DAILY #90 tabs 10/16/22 01/20/23 Rx albuterol sulfate 90 mcg/actuation See Rx Instructions .Route 11/25/22 01/20/23 Rx aerosol inhaler .COMPLEX #51 grams losartan 50 mg tablet 50 mg PO DAILY #90 tabs 12/16/22 01/20/23 Rx ropinirole 3 mg tablet See Rx Instructions .Route 12/30/22 01/20/23 Rx .COMPLEX #90 tabs diclofenac sodium 75 mg See Rx Instructions .Route 01/06/23 01/20/23 Rx tablet,delayed release .COMPLEX #60 tabs Laboratory Tests 01/20/23 09:21 POC Capillary Glucose 88 mg/dl (65-105) Patient hx anesthesia problems: none Family hx anesthesia problems: none Results Review: All pre-operative results and documents have been reviewed as part of the pre- operative evaluation. [facility] Past Medical History Medical History Asthma Benign essential hypertension BPH (benign prostatic hyperplasia) Chronic low back pain Diabetes A1C 06/27/18 = 6 Hx of gout Iron deficiency anemia Major depressive disorder, recurrent, unspecified Obstructive and reflux uropathy, unspecified DIONY (obstructive sleep apnea) Osteoarthritis of knee Prostate cancer RLS (restless legs syndrome) Surgical History Surgical History H/O cervical spine surgery History of bladder surgery Status post cholecystectomy Family History Family History Mother Hypertension Patient's mother is in good health Cerebrovascular accident Sibling Family history of allergic disorder Father Carcinoma of colon Patient's father is in goo
--- NOTE | 2023-01-20 09:53 | PM.HPGS ---
History of Present Illness History of Present Illness Consent: Risks, benefits, and alternatives have been discussed and questions answered. Patient agrees to proceed with procedure. Chief complaint: hx colon polyps Narrative: Tom Solis is a 62 year old male Presents for screening colonoscopy. Patient's current weight appetite and bowel movements are normal. Patient denies abdominal pain. He has had no bleeding. Family history noncontributory. Patient was found to have a benign hyperplastic colon polyp in 2017. Patient presents today for follow-up exam . Review of Systems Review of Systems: Review of systems noncontributory. [facility] Past Medical History Medical History Asthma Benign essential hypertension BPH (benign prostatic hyperplasia) Chronic low back pain Diabetes A1C 06/27/18 = 6 Hx of gout Iron deficiency anemia Major depressive disorder, recurrent, unspecified Obstructive and reflux uropathy, unspecified DIONY (obstructive sleep apnea) Osteoarthritis of knee Prostate cancer RLS (restless legs syndrome) Surgical History Surgical History H/O cervical spine surgery History of bladder surgery Status post cholecystectomy Family History Family History Mother Hypertension Patient's mother is in good health Cerebrovascular accident Sibling Family history of allergic disorder Father Carcinoma of colon Patient's father is in good health Grandparent Diabetes mellitus Other Asthma Family history of cardiovascular disease Social History Social History Smoking packs per day: 0.5 Smoking cigarettes per day: 10.0 Years smoked: 10 Smoking pack-years: 5.00 Smoking status: Former smoker Tobacco type: cigarettes Second hand tobacco smoke exposure: Yes () Smoking end date: 12/08/99 Alcohol intake: never Substance use: never Substance use type: does not use Lack of Transportation: No Lack of Food: Never True Current Housing: I Have Housing Concerned About Future Housing: No Difficulty Paying Gas/Electric Bills: No Difficulty Paying for Meds: No Currently Unemployed: No Education: High School Diploma/GED Difficulty w/ Childcare or Family Care: No Living arrangements: with family Additional living arrangements comments: Occupation/Education: unemployed Gender identity (if verbalized by the patient): Male Spiritual care concerns: No Meds Home Medications and Allergies Home Medications Medication Instructions Recorded Confirmed Type ferrous sulfate 325 mg (65 mg See Rx Instructions .Route 03/08/22 01/20/23 Rx iron) tablet .COMPLEX #90 tabs cholecalciferol (vitamin D3) 1,250 1,250 mcg PO WEEKLY #12 caps 05/09/22 01/20/23 Rx mcg (50,000 unit) capsule cyclobenzaprine 10 mg tablet 10 mg PO TID PRN muscle spasm #30 07/17/22 01/20/23 Rx tabs fenofibrate 160 mg tablet See Rx Instructions .Route 07/30/22 01/20/23 Rx .COMPLEX #90 tabs metformin 1,000 mg tablet See Rx Instructions .Route 08/27/22 01/20/23 Rx .COMPLEX #180 tabs budesonide-formoterol HFA 80 2 puff inhalation BID #10.2 grams 09/11/22 01/20/23 Rx mcg-4.5 mcg/actuation aerosol inhaler (Symbicort) escitalopram oxalate 10 mg tablet 10 mg PO DAILY #90 tabs 10/16/22 01/20/23 Rx albuterol sulfate 90 mcg/actuation See Rx Instructions .Route 11/25/22 01/20/23 Rx aerosol inhaler .COMPLEX #51 grams losartan 50 mg tablet 50 mg PO DAILY #90 tabs 12/16/22 01/20/23 Rx ropinirole 3 mg tablet See Rx Instructions .Route 12/30/22 01/20/23 Rx .COMPLEX #90 tabs diclofenac sodium 75 mg See Rx Instructions .Route 01/06/23 01/20/23 Rx tablet,delayed release .COMPLEX #60 tabs Allergies Allergy/AdvReac Type Severity
[2023-01-20 10:47] VITALS: BP 148/91; PULSE 66; RESP 19; O2SAT 97
[2023-01-20 10:57] VITALS: BP 160/99; PULSE 61; RESP 20; O2SAT 98
[2023-01-20 11:07] VITALS: BP 167/99; PULSE 64; RESP 22; O2SAT 97
== END 2023-01-20 11:15 | disposition home or self-care (01) ==
PROVIDERS: PCP Family Medicine; Visit Provider Internal Medicine Gastroenterology
PROC: 0DJD8ZZ Inspection of Lower Intestinal Tract, Via Natural or Artificial Opening Endoscopic (ICD-10-PCS; CPT 45378; principal; 2023-01-20 10:30)
DX: Z12.11 Encounter for screening for malignant neoplasm of colon (principal); K64.8 Other hemorrhoids; Z86.010 Personal history of colon polyps; E11.9 Type 2 diabetes mellitus without complications; J45.909 Unspecified asthma, uncomplicated; I10 Essential (primary) hypertension; D50.9 Iron deficiency anemia, unspecified; F33.9 Major depressive disorder, recurrent, unspecified; G47.33 Obstructive sleep apnea (adult) (pediatric); G25.81 Restless legs syndrome; Z79.84 Long term (current) use of oral hypoglycemic drugs; Z79.51 Long term (current) use of inhaled steroids; Z85.46 Personal history of malignant neoplasm of prostate; Z87.891 Personal history of nicotine dependence; E66.01 Morbid (severe) obesity due to excess calories; Z68.41 Body mass index [BMI] 40.0-44.9, adult
CPT/HCPCS: G0105; 82948; J2704; J7120

== ENCOUNTER 2023-02-17 13:07 | Outpatient (CLI) | payer MEDICARE, SELFPAY ==
--- NOTE | ~2023-02-17 | PE_ITS ---
EXAMINATION: PET_PETPSMAST_PT DATE: 02/17/2023 16:00 INDICATION: Prostate cancer. Rising PSA. TECHNIQUE: 9.177 mCi of piflufolastat F-18 was administered intravenously. Low dose computed tomograp hy (CT) images were acquired from the base of the brain to the proximal thighs for attenuation correc tion and anatomic localization. Automated exposure control was employed. Dose-length product (DLP) wa s 1167 mGy-cm. Positron emission tomography (PET) images were acquired in the same distribution. COMPARISON: CT abdomen and pelvis 02/06/2022, bone scan 02/06/2022 FINDINGS: Head/neck: There are no pathologically enlarged lymph nodes. There are changes of anterior fusion pro cedure in the cervical spine. There is mucosal thickening in the maxillary sinuses. Chest: There is no pneumonia or pleural effusion. The heart size is normal. No pericardial effusion. There are no pathologically enlarged lymph nodes. Abdomen/pelvis/proximal thighs: The liver, spleen, and pancreas are normal. The gallbladder is absent . The adrenal glands and right kidney are normal. There are cysts in left kidney measuring up to 19 m m. There is an umbilical hernia containing nonobstructed small bowel. There are changes of prostatect italo. There is a left-sided ventral hernia containing nonobstructed colon. The appendix is normal. The re are dilated loops of bowel. There is mild aortic atherosclerosis. There are no pathologically enla rged lymph nodes. There are normal-sized bilateral external iliac nodes with increased activity. For example, a 10 x 6 mm right external iliac node demonstrates maximum SUV of 10.1. There are a few woodwind reeds cutter darrian benign bone islands. IMPRESSION: 1. Normal-sized bilateral external iliac nodes with increased activity, consistent with metastatic di sease. 2. Umbilical hernia containing nonobstructed small bowel. 3. Left-sided ventral hernia containing nonobstructed colon. Reviewed, dictated and finalized at location A. IMPRESSION: 1. Normal-sized bilateral external iliac nodes with increased activity, consist ent with metastatic disease. 2. Umbilical hernia containing nonobstructed small bowel. 3. Left-sided ventral hernia containing nonobstructed colon.
== END 2023-02-17 13:08 | disposition home or self-care (01) ==
LOC: ANHIMG 13:12
PROVIDERS: PCP Family Medicine; Visit Provider Urology
DX: C61 Malignant neoplasm of prostate (principal); K43.9 Ventral hernia without obstruction or gangrene; K42.9 Umbilical hernia without obstruction or gangrene
CPT/HCPCS: 78815; A9595

== ENCOUNTER 2023-03-24 14:20 | Outpatient (CLI) | payer MEDICARE, SELFPAY ==
--- NOTE | ~2023-03-24 | MR_ITS ---
EXAMINATION: MR pelvis wo/w con DATE: 03/24/2023 15:56 INDICATION: Prostate cancer TECHNIQUE: Magnetic resonance imaging (MRI) of the pelvis was performed without and with 20 mL Multih ance intravenous contrast. Fullfield sequences of the pelvis included axial and coronal T2-weighted S S FSE, axial, sagittal and coronal 2D FIESTA, axial 2D FIESTA FS, axial SSFSE-IR BONNIE, axial dual-echo T1-weighted FSPGR, axial and coronal T1 weighted LAVA, 3D axial T2 Cube, axial diffusion-weighted SE with apparent diffusion coefficient (ADC) maps. Postcontrast sequences included a time course axial T1-weighted LAVA and sagittal and coronal T1-weighted LAVA. COMPARISON: None. FINDINGS: Status post prostatectomy with a few expected small foci of susceptibility artifact but no abnormal s oft tissue deposits to suggest residual/locally recurrent disease. Bladder is normal. Visualized port ion of the bowels and the lower poles of both kidneys are normal. No free fluid in the pelvis. No pat hologically enlarged pelvic or inguinal lymphadenopathy. There is increased fat within the bilateral inguinal canals which could be related to inguinal hernias or body habitus. There is normal bone gage ow signal throughout. IMPRESSION: 1. Status post prostatectomy for reported prostate cancer. No evident residual, recurrent or metastat ic disease. Reviewed, dictated and finalized at location A. IMPRESSION: 1. Status post prostatectomy for reported prostate cancer. No evident residual, recurrent or metastatic disease.
== END 2023-03-24 14:21 | disposition home or self-care (01) ==
PROVIDERS: PCP Nurse Practitioner; Visit Provider Radiology Radiation Oncology
DX: C61 Malignant neoplasm of prostate (principal)
CPT/HCPCS: 72197; A9577

== ENCOUNTER 2023-10-15 09:25 | Outpatient (CLI) | payer MEDICARE, SELFPAY ==
--- NOTE | ~2023-10-15 | XR_ITS ---
EXAMINATION: XR knee RT min 4V DATE: 10/15/2023 09:41 INDICATION: Chronic right knee pain. TECHNIQUE: 4 views of right knee were obtained. COMPARISON: Right knee radiographs 06/27/2022 FINDINGS: There is varus angulation at the knee. No fracture. There is severe osteoarthritis of media l and patellofemoral compartments and mild osteoarthritis of lateral compartment. No knee joint effus ion. IMPRESSION: 1. Severe right knee osteoarthritis. Reviewed, dictated and finalized at location A.
== END 2023-10-15 09:26 | disposition home or self-care (01) ==
PROVIDERS: PCP Family Medicine; Visit Provider Orthopaedic Surgery
DX: M17.11 Unilateral primary osteoarthritis, right knee (principal)
CPT/HCPCS: 73564

== ENCOUNTER 2024-07-19 12:45 | Outpatient (CLI) | payer MEDICARE, SELFPAY ==
--- NOTE | ~2024-07-19 | XR_ITS ---
Supine and upright views of the abdomen Clinical history: Abdominal pain Findings: Bowel gas pattern is nonspecific. No evidence for obstruction or free air. No abnormal mass lesion or calcification is seen. Osseous structures are intact. Impression: No significant abnormality is seen. Reviewed, dictated and finalized at [facility]. ICE BEREAVEMENT COORDINATOR Impression: No significant abnormality is seen.
--- OUTSIDE RECORDS SUMMARY | 2024-07-19 12:55 | XMS_ITS | Patient Health Summary ---
Author Organization [facility] Address [address] [place] [address] Care Team Providers Care Transfer Car Operator Name Role Phone Sandeep Ortiz MD Unavailable [phone] Armani Crooks MD Primary Care Provider Note from [facility],non-owned Affiliates and Associated Physician Practices is amultiple site organization consisting of ambulatory clinics and hospital sitesin [place], [place], [place] and [place]. This disclosure is being madepursuant to the Care Everywhere program and may not contain all information available regarding this patient. Last updated 18.[facility] Allergies * Allopurinol(Other) Medications * Be aware that medications may not be up to date on this document. Alwaysverify current medications with the patient. * ROPINirole (REQUIP) 5 MG tablet(Started 01/22/2010) Take 5 mg by mouth at bedtime. * Acetaminophen (TYLENOL PO) * metFORMIN (GLUCOPHAGE) 1000 MG tablet Take 1,000 mg by mouth 2 times daily with morning and evening meal * ferrous sulfate 325 (65 FE) MG tablet Take 325 mg by mouth 2 times daily with morning and evening meal * finasteride (PROSCAR) 5 MG tablet Take 5 mg by mouth once daily * fenofibrate (LOFIBRA) 160 MG tablet Take 160 mg by mouth once daily Take with largest meal of the day. * amLODIPine (NORVASC) 5 MG tablet(Started 08/02/2020) Take 1 (one) tablet by mouth once daily * losartan (COZAAR) 25 MG tablet(Started 08/02/2020) Take 1 (one) tablet by mouth once daily Active Problems Problem Noted Date Diagnosed Date Hyperkalemia 07/29/2020 Acute renal failure 07/29/2020 S/P laparoscopic cholecystectomy 03/23/2019 Chronic cholecystitis 03/23/2019 Generalized anxiety disorder 04/13/2014 Insomnia 11/10/2013 Obstructive sleep apnea 06/10/2013 Mixed hyperlipidemia 04/14/2013 Morbid obesity 04/14/2013 Essential hypertension 11/23/2012 Major depression 11/23/2012 Restless leg syndrome Immunizations * INFLUENZA VACCINE, TRIV. (AFLURIA, FLUZONE TRIVALENT; 6MO+) (IIV3)(Given 04/14/2013) * INFLUENZA VACCINE(Given 03/23/2014) Social History Tobacco Use Types Packs/Day Years Used Date Smoking Tobacco: Former Cigarettes 0.5 10 0 11/23/1984 - 11/23/1994 Smokeless Tobacco: Never Comments:Quit 10 yrs ago Alcohol Use Standard Drinks/Week Comments No 0 (1 standard drink = 0.6 oz pur e alcohol) Sex and Gender Information Value Date Recorded Sex Assigned at Not on file Gender Identity Not on file Sexual Orientation Not on file Last Filed Vital Signs Vital Sign Reading Time Taken Comments Blood Pressure 162/95 08/01/2020 8:56 AM OFFSHORING MANAGER Pulse 70 08/01/2020 8:56 AM OFFSHORING MANAGER Temperature 36.3 C (97.3 F) 08/01/2020 8:56 AM OFFSHORING MANAGER Respiratory Rate 18 08/01/2020 8:56 AM OFFSHORING MANAGER Oxygen Saturation 98% 08/01/2020 8:56 AM OFFSHORING MANAGER Inhaled Oxygen Concentration - - Weight 145.2 kg (320 lb) 07/29/2020 2:29 AM OFFSHORING MANAGER Height 180.3 cm (5' 11 ) 07/29/2020 2:29 AM OFFSHORING MANAGER Body Mass Index 44.63 07/29/2020 2:29 AM OFFSHORING MANAGER Procedures * CARDIAC RHYTHM STRIP ORDER(Performed 08/03/2020) * GLUCOSE - POINT OF CARE(Performed 08/01/2020) * OT EVAL AND TREAT(Performed 08/01/2020) * RENAL FUNCTION PANEL(Performed 08/01/2020) * GLUCOSE - POINT OF CARE(Performed 07/31/2020) * GLUCOSE - POINT OF CARE(Performed 07/31/2020) * GLUCOSE - POINT OF CARE(Performed 07/31/2020) * GLUCOSE - POINT OF CARE(Performed 07/31/2020) * PHOSPHORUS BLOOD(Performed 07/31/2020) * BASIC METABOLIC PANEL (CALCIUM TOTAL)(Performed 07/31/2020) * CBC W AUTO DIFFERENTIAL(Performed 07/31/2020) * COLLEEN PATH INTERP URINE(Performed 07/30/2020) * PROTEIN ELECTROPHORESIS PATH INTERP URINE(Performed 07/30/2020) * COLLEEN URINE(Performed 07/30/2020) * PROTEIN ELECTROPHORESIS URINE TIMED(Performed 07/30/2020) * GLUCOSE - POINT OF CARE(Performed 07/30/2020) * GLUCOSE - POINT OF CARE(Performed 07/30/2020) * GLUCOSE - POINT OF CARE(Performed 07/30/2020) * GLUCOSE - POINT OF CARE(Performed 07/30/2020) * GLUCOSE - POINT OF CARE(Performed 07/30/2020) * HEMOGLOBIN A1C(Performed 07/30/2020) * RENAL FUNCTION PANEL(Performed 07/30/2020) * MAGNESIUM BLOOD(Performed 07/30/2020) * CRYOGLOBULIN SCREEN W/ REFLEX(Performed 07/30/2020) * GLUCOSE - POINT OF CARE(Performed 07/29/2020) * GLUCOSE - POINT OF CARE(Performed 07/29/2020) * HEPATITIS SCREEN ACUTE(Performed 07/29/2020) * COLLEEN PATH INTERP BLOOD(Performed 07/29/2020) * PROTEIN ELECTROPHORESIS PATH INTERP BLOOD(Performed 07/29/2020) * RENAL FUNCTION PANEL(Performed 07/29/2020) * COLLEEN BLOOD PANEL(Performed 07/29/2020) * PROTEIN ELECTROPHORESIS BLOOD(Performed 07/29/2020) * COMPLEMENT C4(Performed 07/29/2020) * COMPLEMENT C3(Performed 07/29/2020) * ANCA VASCULITIS PANEL(Performed 07/29/2020) * TRINO BLOOD SCREEN W/REFLEX TITER(Performed 07/29/2020) * TROPONIN I(Performed 07/29/2020) * HEPATITIS B SURFACE ANTIBODY QUANT(Performed 07/29/2020) * XR CHEST POST PROCEDURE(Performed 07/29/2020) Performed for Acute renal failure, unspecified acute renal failure type (HCC), Hyperkalemia * ED CENTRAL LINE PLACEMENT(Performed 07/29/2020) * XR SHOULDER RIGHT 2VW OR MORE(Performed 07/29/2020) Performed for Acute renal failure, unspecified acute renal failure type (HCC) * HEMODIALYSIS INPATIENT(Performed 07/29/2020) * BASIC METABOLIC PANEL (CALCIUM TOTAL)(Performed 07/29/2020) * TROPONIN I(Performed 07/29/2020) * URINE MICROSCOPIC ONLY REFLEX TO CULTURE(Performed 07/29/2020) * URINALYSIS REFLEX MICROSCOPIC REFLEX CULTURE(Performed 07/29/2020) * OSMOLALITY URINE(Performed 07/29/2020) * CREATININE URINE RANDOM(Performed 07/29/2020) * SODIUM URINE RANDOM(Performed 07/29/2020) * CULTURE URINE(Performed 07/29/2020) * CT RENAL STONE(Performed 07/29/2020) Performed for Acute renal failure, unspecified acute renal failure type (HCC), Hyperkalemia * EKG 12-LEAD(Performed 07/29/2020) Performed for Acute renal failure, unspecified acute renal failure type (HCC), Hyperkalemia * PHOSPHORUS BLOOD(Performed 07/29/2020) * MAGNESIUM BLOOD(Performed 07/29/2020) * TROPONIN I(Performed 07/29/2020) * COMPREHENSIVE METABOLIC PANEL(Performed 07/29/2020) * CBC W AUTO DIFFERENTIAL(Performed 07/29/2020) * GLUCOSE - POINT OF CARE(Performed 03/24/2019) * GLUCOSE - POINT OF CARE(Performed 03/23/2019) * GLUCOSE - POINT OF CARE(Performed 03/23/2019) * ENDOTRACHEAL TUBE NOTE(Performed 03/23/2019) * ROBOTIC ASSISTED CHOLECYSTECTOMY(Performed 03/23/2019) * PATHOLOGY TISSUE EXAM (STL)(Performed 03/23/2019) Performed for Diagnosis unknown * GLUCOSE - POINT OF CARE(Performed 03/23/2019) * EKG 12-LEAD(Performed 03/22/2019) Performed for Preop examination * HEMOGLOBIN A1C(Performed 03/22/2019) Performed for Preop examination * CBC W AUTO DIFFERENTIAL(Performed 03/22/2019) Performed for Preop examination * IMAGING/RADIOLOGY/XRAY RESULTS ORDER(Performed 02/24/2019) * IMAGING/RADIOLOGY/XRAY RESULTS ORDER(Performed 02/24/2019) * LAB RESULTS ORDER(Performed 02/24/2019) * GENERAL HEALTH PANEL(Performed 11/11/2013) Performed for Unspecified essential hypertension, Mixed hyperlipidemia * LIPID PROFILE(Performed 11/11/2013) Performed for Mixed hyperlipidemia * LIPID PROFILE(Performed 04/14/2013) Performed for Mixed hyperlipidemia * COMPREHENSIVE METABOLIC PANEL(Performed 04/14/2013) Performed for Mixed hyperlipidemia * LIPID PROFILE(Performed 11/23/2012) Performed for Unspecified Essential Hypertension, Morbid obesity (HCC) * GENERAL HEALTH PANEL(Performed 11/23/2012) Performed for Unspecified Essential Hypertension, Morbid obesity (HCC) * IMAGING/RADIOLOGY/XRAY RESULTS ORDER(Performed 04/04/2011) * XR CERVICAL SPINE 2 OR 3VW(Performed 07/04/2010) Performed for Cervicalgia * XR CERVICAL SPINE 1VW(Performed 02/01/2010) Performed for Neck Pain, S/P Cervical Spinal Fusion * XR CERVICAL SPINE 1VW(Performed 02/01/2010) Performed for Neck Pain * XR CERVICAL SPINE 1VW(Performed 02/01/2010) Performed for Neck Pain * CARDIAC EKG ORDER(Performed 01/23/2010) * TYPE + SCREEN PANEL(Performed 01/22/2010) Performed for Preoperative Examination * URINALYSIS REFLEX TO MICROSCOPIC NO CULTURE(Performed 01/22/2010) Performed for Preoperative Examination * BASIC METABOLIC PANEL (CALCIUM TOTAL)(Performed 01/22/2010) Performed for Preoperative Examination * HGB HCT PANEL(Performed 01/22/2010) Performed for Preoperative Examination * NM BONE SCAN LIMITED AREA(Performed 01/17/2010) Performed for Neck Pain * IMAGING/RADIOLOGY/XRAY RESULTS ORDER(Performed 03/14/2009) Results * CARDIAC RHYTHM STRIP ORDER (08/03/2020 12:04 AM OFFSHORING MANAGER) Narrative 08/03/2020 12:04 AM OFFSHORING MANAGER Ordered by an unspecified provider. Scanned Document CARDIAC SERVICES ORD ERABLES * (ABNORMAL) GLUCOSE - POINT OF CARE (08/01/2020 9:10 AM OFFSHORING MANAGER) Only the most recent of16 resultswithin the time period is included. Glucose WB/POC 149(H) 70 - 106 mg/dL 08/01/2020 12:30 PM OFFSHORING MANAGER [facility] Specimen Type Venous 08/01/2020 12:30 PM OFFSHORING MANAGER [facility] Blood BLOOD SPECIMEN / Unknown 08/01/2020 9:10 AM OFFSHORING MANAGER 08/01/2020 12:30 PM OFFSHORING MANAGER Reginald Cade MD LAB - POINT OF CARE ORDERABLES [facility] [address] [place] [address] * RENAL FUNCTION PANEL (08/01/2020 4:02 AM OFFSHORING MANAGER) Only the most recent of3 resultswithin the time period is included. Glucose 96 70 - 105 mg/dL 08/01/2020 4:42 AM [facility] Sodium 140 136 - 145 mmol/L 08/01/2020 4:42 AM [facility] Potassium 3.6 3.5 - 5.1 mmol/L 08/01/2020 4:42 AM [facility] Chloride 105 98 - 107 mmol/L 08/01/2020 4:42 AM [facility] CO2 24 23 - 31 mmol/L 08/01/2020 4:42 AM [facility] Calcium 9.2 8.4 - 10.4 mg/dL 08/01/2020 4:42 AM [facility] Anion Gap 11 8 - 18 mmol/L 08/01/2020 4:42 AM [facility] Comment:Attention clinician: Reference Range change. BUN 25 8.4 - 25.7 mg/dL 08/01/2020 4:42 AM [facility] Creatinine 0.89 0.72 - 1.25 mg/dL 08/01/2020 4:42 AM [facility] Albumin 3.7 3.5 - 5.2 gm/dL 08/01/2020 4:42 AM [facility] Phosphorus 3.5 2.3 - 4.7 mg/dL 08/01/2020 4:42 AM [facility] Comment:Attention clinician: Reference Range change. eGFR by MDRD >60 >60 mL/min/1.7 3m2 08/01/2020 4:42 AM [facility] eGFR by MDRD >60 >60 mL/min/1.7 3m2 08/01/2020 4:42 AM [facility] Blood BLOOD SPECIMEN / Unknown Venipuncture / Unknown 08/01/2020 4:02 AM OFFSHORING MANAGER 08/01/2020 4:18 AM OFFSHORING MANAGER Rosi Tuttle MD LAB - CHEMISTRY [facility] Organization Address City/State/ZIP Co de Phone Number [facility] [address] [place] [address] * (ABNORMAL) CBC W AUTO DIFFERENTIAL (07/31/2020 4:55 AM OFFSHORING MANAGER) Only the most recent of3 resultswithin the time period is included. Pathologist [facility] WBC 7.5 4.4 - 10.7 x10E9/L 07/31/2020 5:35 AM [facility] WBC Corrected 07/31/2020 5:35 AM [facility] RBC 3.14(L) 3.80 - 5.40 x10E12/L 07/31/2020 5:35 AM [facility] Hemoglobin 9.2(L) 12.0 - 17.6 gm/dL 07/31/2020 5:35 AM [facility] Hematocrit 29.0(L) 35.2 - 51.7 % 07/31/2020 5:35 AM [facility] MCV 92.4 80.7 - 98.3 fl 07/31/2020 5:35 AM [facility] MCH 29.3 26.7 - 34.0 pg 07/31/2020 5:35 AM [facility] MCHC 31.7 30.8 - 35.9 gm/dL 07/31/2020 5:35 AM [facility] Platelet Count 278 153 - 416 x10E9/L 07/31/2020 5:35 AM [facility] RDW-CV 13.9 12.1 - 14.9 % 07/31/2020 5:35 AM [facility] MPV 9.4 9.4 - 12.9 fl 07/31/2020 5:35 AM [facility] Neutrophils % 71.6 44.0 - 73.0 % 07/31/2020 5:35 AM [facility] Lymphocytes % 14.3(L) 20.0 - 43.0 % 07/31/2020 5:35 AM [facility] Monocytes % 11.4 5.0 - 13.0 % 07/31/2020 5:35 AM [facility] Eosinophils % 2.1 0.0 - 6.0 % 07/31/2020 5:35 AM [facility] Basophils % 0.3 0.0 - 2.0 % 07/31/2020 5:35 AM [facility] Immature Granulocytes 0.3 0 - 1 % 07/31/2020 5:35 AM [facility] Neutrophil Absolute 5.34 2.01 - 7.14 x10E9/L 07/31/2020 5:35 AM [facility] Lymphocytes Absolute 1.07 1.07 - 3.94 x10E9/L 07/31/2020 5:35 AM [facility] Monocytes Absolute 0.85 0.26 - 1.07 x10E9/L 07/31/2020 5:35 AM [facility] Eosinophils Absolute 0.16 0 - 0.47 x10E9/L 07/31/2020 5:35 AM [facility] Basophils Absolute 0.02 0 - 0.08 x10E9/L 07/31/2020 5:35 AM [facility] Immature Granulocytes Absolute 0.02 0.00 - 0.06 x10E9/L 07/31/2020 5:35 AM [facility] nRBC Auto 0 /100 WBC 07/31/2020 5:35 AM [facility] Blood BLOOD SPECIMEN / Unknown Venipuncture / Unknown 07/31/2020 4:55 AM OFFSHORING MANAGER 07/31/2020 5:28 AM [facility] Florentin Cedillo DO LAB - HEMATOLOGY O RDERABLES [facility] [address] [place] [address] * (ABNORMAL) BASIC METABOLIC PANEL (CALCIUM TOTAL) (07/31/2020 4:55 AM [facility]) Only the most recent of3 resultswithin the time period is included. [facility] Glucose 96 70 - 105 mg/dL 07/31/2020 5:46 AM [facility] Sodium 141 136 - 145 mmol/L 07/31/2020 5:46 AM [facility] Potassium 3.8 3.5 - 5.1 mmol/L 07/31/2020 5:46 AM [facility] Chloride 104 98 - 107 mmol/L 07/31/2020 5:46 AM [facility] CO2 26 23 - 31 mmol/L 07/31/2020 5:46 AM [facility] Calcium 9.2 8.4 - 10.4 mg/dL 07/31/2020 5:46 AM [facility] Anion Gap 11 8 - 18 mmol/L 07/31/2020 5:46 AM [facility] Comment:Attention clinician: Reference Range change. BUN 32(H) 8.4 - 25.7 mg/dL 07/31/2020 5:46 AM [facility] Creatinine 0.97 0.72 - 1.25 mg/dL 07/31/2020 5:46 AM [facility] eGFR by MDRD >60 >60 mL/min/1.7 3m2 07/31/2020 5:46 AM [facility] eGFR by MDRD >60 >60 mL/min/1.7 3m2 07/31/2020 5:46 AM [facility] Blood BLOOD SPECIMEN / Unknown Venipuncture / Unknown 07/31/2020 4:55 AM OFFSHORING MANAGER 07/31/2020 5:28 AM OFFSHORING MANAGER Marline NUNEZ LAB - HORTICULTURE INSTRUCTOR RY ORDERABLES Performing Organization Address [facility] Co de Phone Number [facility] [address] [place] [address] * PHOSPHORUS BLOOD (07/31/2020 4:55 AM OFFSHORING MANAGER) Only the most recent of2 resultswithin the time period is included. Phosphorus 2.3 2.3 - 4.7 mg/dL 07/31/2020 5:46 AM OFFSHORING MANAGER [facility] Blood BLOOD SPECIMEN / Unknown Venipuncture / Unknown 07/31/2020 4:55 AM OFFSHORING MANAGER 07/31/2020 5:28 AM OFFSHORING MANAGER Marline Dickinson APRN-KENDRA LAB - HORTICULTURE INSTRUCTOR RY ORDERABLES Performing Organization Address City/State/[facility] Co de Phone Number [facility] [address] [place] [address] * COLLEEN PATH INTERP URINE (07/30/2020 10:49 PM OFFSHORING MANAGER) Case Report Pathologist Interpretation Report Case: [id number] Authorizing Provider: Rosi Tuttle MD Collected: 07/30/2020 10:49 PM Ordering Location: [address] [facility] Received: 08/01/2020 07:05 AM Pathologist: Rober Key MD Specimen: Urine Timed 08/01/2020 1:24 PM OFFSHORING MANAGER [facility] Interpretation COLLEEN Urine No Monoclonal protein identified. 08/01/2020 1:24 PM OFFSHORING MANAGER [facility] Pattern/Graph See attached scanned pattern or graph. 08/01/2020 1:24 PM OFFSHORING MANAGER [facility] Urine TIMED URINE SPECIMEN / Unknown Timed Urine Volume Measurement / Unknown 07/30/2020 10:49 PM OFFSHORING MANAGER 08/01/2020 7:05 AM OFFSHORING MANAGER Rosi Tuttle MD LAB - PATHOLOGY/CYTO LOGY ORDERABLES Performing Organization Address [facility] Co de Phone Number [facility] [address] [place] [address] * PROTEIN ELECTROPHORESIS PATH INTERP URINE (07/30/2020 10:49 PM OFFSHORING MANAGER) Case Report Pathologist Interpretation Report Case: [id number] Authorizing Provider: Rosi Tuttle MD Collected: 07/30/2020 10:49 PM Ordering Location: [address] [facility] Received: 08/03/2020 10:32 AM Pathologist: Rober Key MD Specimen: Urine Timed 08/04/2020 10:18 AM OFFSHORING MANAGER [facility] Interpretation PE Urine No Monoclonal protein identified. 08/04/2020 10:18 AM OFFSHORING MANAGER [facility] Pattern/Graph See attached scanned pattern or graph. 08/04/2020 10:18 AM OFFSHORING MANAGER [facility] Urine TIMED URINE SPECIMEN / Unknown Timed Urine Volume Measurement / Unknown 07/30/2020 10:49 PM OFFSHORING MANAGER 08/03/2020 10:32 AM OFFSHORING MANAGER Rosi Tuttle MD LAB - PATHOLOGY/CYTO LOGY ORDERABLES Performing Organization Address City/[facility]/ZIP Co de Phone Number [facility] [address] [place] [address] * COLLEEN URINE (07/30/2020 10:49 PM OFFSHORING MANAGER) Comment Path Review Pathologist has reviewed results. 08/01/2020 2:05 PM OFFSHORING MANAGER [facility] Performing Site Reported Performed at [facility], reported by [facility] 08/01/2020 2:05 PM OFFSHORING MANAGER [facility] Comment: Performed by: [facility] [address] [place] [id number] Resulted by: [address] [id number] Comment See Report See Separate Pathology Report 08/01/2020 2:05 PM OFFSHORING MANAGER [facility] Urine URINE SPECIMEN COLLECTION, 24 HOURS / Unknown Timed Urine Volume Measurement / Unknown 07/30/2020 10:49 PM OFFSHORING MANAGER 07/30/2020 11:03 PM OFFSHORING MANAGER Narrative [facility] - 08/01/2020 2:05 PM OFFSHORING MANAGER PATHOLOGISTS INTERPRETIVE COMMENTS WILL BE PLACED ON SEPARATE REPORT. Rosi Tuttle MD LAB - URINE CHEMISTR Y ORDERABLES Performing Organization Address City/[facility]/ZIP Co de Phone Number [facility] [address] [place] [phone] * (ABNORMAL) PROTEIN ELECTROPHORESIS URINE TIMED (07/30/2020 10:49 PM OFFSHORING MANAGER) Volume 24 Hour Urine 2,800 mL 08/05/2020 4:24 PM OFFSHORING MANAGER [facility] Collection Time Hours 24 hrs 08/05/2020 4:24 PM OFFSHORING MANAGER [facility] Protein Urine 15.2(H) <11.9 mg/dL 08/05/2020 4:24 PM [facility] Protein 24 Hour Urine 426 mg/24hr 08/05/2020 4:24 PM [facility] Albumin Urine 28.8 % 08/05/2020 4:24 PM [facility] Alpha-1 Globulin Urine 22.3 % 08/05/2020 4:24 PM [facility] Uewtb-0-Keribw in % Urine 19.1 % 08/05/2020 4:24 PM [facility] Beta-Globulin Urine 13.6 % 08/05/2020 4:24 PM [facility] Gamma Globulin % Urine 16.2 % 08/05/2020 4:24 PM [facility] Performing Site Reported Performed at [facility], reported by [facility] 08/05/2020 4:24 PM [facility] Comment: Performed by: [facility] [address] [place] [id number] Resulted by: [address] [address] Urine TIMED URINE SPECIMEN / Unknown Timed Urine Volume Measurement / Unknown 07/30/2020 10:49 PM OFFSHORING MANAGER 07/30/2020 11:05 PM OFFSHORING MANAGER Narrative [facility] - 08/05/2020 4:24 PM OFFSHORING MANAGER CONCENTRATED X100 Rosi Tuttle MD LAB - URINE CHEMISTR Y ORDERABLES [facility] [address] [place] [address] [facility] [address] [place] [id number] * HEMOGLOBIN A1C (07/30/2020 3:49 AM OFFSHORING MANAGER) Only the most recent of2 resultswithin the time period is included. Hemoglobin A1c 5.3 4.2 - 5.6 % 07/30/2020 4:06 AM [facility] Estimated Average Glucose 105 mg/dL 07/30/2020 4:06 AM [facility] Blood BLOOD SPECIMEN / Unknown Venipuncture / Unknown 07/30/2020 3:49 AM OFFSHORING MANAGER 07/30/2020 3:54 AM OFFSHORING MANAGER Narrative [facility] - 07/30/2020 4:06 AM OFFSHORING MANAGER The following cutoff levels are recommended by [place] [employer]. A1c > 6.5% : considered as diabetes if two separate tests >6.5% or in an appropriate clinical setting. A1c 5.7% - 6.4% : considered as prediabetes (suggest increased risk for diabetes and cardiovascular disease) Control target level: Should be individualized. < 7 for general (non-) , < 8% less stringent goal, < 6.5 more stringent goal. Hemoglobin A1c measurements are used as an aid in the diagnosis of diabetic mellitus, as an aid to identify patients who may be at the risk for developing diabetic mellitus, and for the monitoring long-term blood glucose control in individuals with diabetes mellitus. This test should not replace glucose testing for patients with Type 1 diabetes, pediatric patients, or women. Falsely low HbA1c results may be observed in patients with clinical conditions that shorten erythrocyte life span or decrease mean erythrocyte age such as the presence of unstable hemoglobin variants, elevated hemoglobin F level or other causes of hemolytic anemia . HbA1c may not accurately reflect glycemic control when clinical conditions that affect erythrocyte survival are present. Severe Iron deficiency anemia may yield falsely high results. Hemoglobin A1c assay should not be used to diagnose or monitor diabetes in patients with malignancy, recent blood transfusion, chronic kidney or liver disease. This method may yield falsely low results when hemoglobin (HbF) exceeds 5% in the specimen. Reginald Cade MD LAB - CHEMISTRY ORDERABLES Performing Organization Address City/State/[facility] Co de Phone Number [facility] [address] [place] [address] * MAGNESIUM BLOOD (07/30/2020 3:49 AM OFFSHORING MANAGER) Only the most recent of2 resultswithin the time period is included. [facility] Magnesium 2.2 1.6 - 2.6 mg/dL 07/30/2020 4:16 AM OFFSHORING MANAGER [facility] Blood BLOOD SPECIMEN / Unknown Venipuncture / Unknown 07/30/2020 3:49 AM OFFSHORING MANAGER 07/30/2020 3:54 AM OFFSHORING MANAGER Reginald Cade MD LAB - CHEMISTRY ORDERABLES [facility] [address] [place] [id number] * CRYOGLOBULIN SCREEN W/ REFLEX (07/30/2020 3:48 AM OFFSHORING MANAGER) Cryoglobulin Qualitative Comment None detected 08/04/2020 2:09 PM OFFSHORING MANAGER [facility] ([facility]) Comment: None Detected at 72 hours This test was developed and its performance characteristics determined by [facility]. It has not been cleared or approved by the Food and Drug Administration. Blood BLOOD SPECIMEN / Unknown Venipuncture / Unknown 07/30/2020 3:48 AM OFFSHORING MANAGER 07/30/2020 3:54 AM OFFSHORING MANAGER Narrative [facility] ([facility]) - 08/04/2020 2:09 PM OFFSHORING MANAGER Performed at: [address] [place] [id number] Press Loader: Jeb Hood PhD, Phone: [phone] Rosi Tuttle MD LAB - CHEMISTRY [facility] ([facility]) [address] [place] [address] * HEPATITIS SCREEN ACUTE (07/29/2020 4:51 PM OFFSHORING MANAGER) HAV Antibody IgM Non Reactive Non Reactive 07/29/2020 5:51 PM OFFSHORING MANAGER [facility] HBsAg Non Reactive Non Reactive 07/29/2020 5:51 PM OFFSHORING MANAGER [facility] HBc Antibody IgM Non Reactive Non Reactive 07/29/2020 5:51 PM OFFSHORING MANAGER [facility] HCV Antibody Screen Non Reactive Non Reactive 07/29/2020 5:51 PM OFFSHORING MANAGER [facility] Blood BLOOD SPECIMEN / Unknown Venipuncture / Unknown 07/29/2020 4:51 PM OFFSHORING MANAGER 07/29/2020 5:01 PM OFFSHORING MANAGER Narrative [facility] - 07/29/2020 5:51 PM OFFSHORING MANAGER Non Reactive - Antibodies to Hepatitis C virus (HCV) were not detected, result does not exclude early acute HCV infection. Rosi Tuttle MD LAB - CHEMISTRY ORDE ANNIE Performing Organization Address City/[facility]/ZIP Co de Phone Number [facility] [address] [place] [address] * COLLEEN PATH INTERP BLOOD (07/29/2020 4:47 PM OFFSHORING MANAGER) Case Report Pathologist Interpretation Report Case: [id number] Authorizing Provider: Rosi Tuttle MD Collected: 07/29/2020 04:47 PM Ordering Location: [address] [facility] Received: 08/01/2020 07:05 AM Pathologist: Rober Key MD Specimen: Blood 08/01/2020 1:23 PM OFFSHORING MANAGER [facility] Interpretation COLLEEN No Monoclonal protein identified. 08/01/2020 1:23 PM OFFSHORING MANAGER [facility] Pattern/Graph See attached scanned pattern or graph. 08/01/2020 1:23 PM OFFSHORING MANAGER [facility] Blood BLOOD SPECIMEN / Unknown Venipuncture / Unknown 07/29/2020 4:47 PM OFFSHORING MANAGER 08/01/2020 7:05 AM OFFSHORING MANAGER Rosi Tuttle MD LAB - PATHOLOGY/CYTO LOGY ORDERABLES Performing Organization Address [facility] Co de Phone Number [facility]ATORY [address] [place] [address] * PROTEIN ELECTROPHORESIS PATH INTERP BLOOD (07/29/2020 4:47 PM OFFSHORING MANAGER) Case Report Pathologist Interpretation Report Case: [id number] Authorizing Provider: Rosi Tuttle MD Collected: 07/29/2020 04:47 PM Ordering Location: [address] [facility] Received: 07/31/2020 07:54 AM Pathologist: Rober Key MD Specimen: Blood 08/01/2020 9:33 AM OFFSHORING MANAGER [facility] Interpretation PE No Monoclonal protein identified. 08/01/2020 9:33 AM OFFSHORING MANAGER [facility] Blood BLOOD SPECIMEN / Unknown Venipuncture / Unknown 07/29/2020 4:47 PM OFFSHORING MANAGER 07/31/2020 7:54 AM OFFSHORING MANAGER Rosi Tuttle MD LAB - PATHOLOGY/CYTO LOGY ORDERABLES [facility] [address] [place] [address] * ANCA VASCULITIS PANEL (07/29/2020 4:47 PM OFFSHORING MANAGER) Anti-myeloperoxid ase (MPO) Antibody <9.0 0.0 - 9.0 U/mL 08/02/2020 4:10 PM OFFSHORING MANAGER [facility] ([facility]) Anti-proteinase 3 (FL-3) Abs <3.5 0.0 - 3.5 U/mL 08/02/2020 4:10 PM OFFSHORING MANAGER [facility] ([facility]) Cytoplasmic (C-ANCA) <1:20 Neg:<1:20 titer 08/02/2020 4:10 PM OFFSHORING MANAGER [facility] ([facility]) p-ANCA Titer <1:20 Neg:<1:20 titer 08/02/2020 4:10 PM OFFSHORING MANAGER [facility] ([facility]) Comment: The presence of positive fluorescence exhibiting P-ANCA or C-ANCA patterns alone is not specific for the diagnosis of Lorena's Granulomatosis (WG) or microscopic polyangiitis. Decisions about treatment should not be based solely on ANCA IFA results. The [employer] ANCA [employer] Consensus recommends follow up testing of positive sera with both FL-3 and MPO-ANCA enzyme immunoassays. As many as 5% serum samples are positive only by EIA. Ref. AM J Clin Pathol 1999;111:507-513. Atypical p-ANCA Titer <1:20 Neg:<1:20 titer 08/02/2020 4:10 PM OFFSHORING MANAGER [facility] ([facility]) Comment: The atypical pANCA pattern has been observed in a significant percentage of patients with ulcerative colitis, primary sclerosing cholangitis and autoimmune hepatitis. Blood BLOOD SPECIMEN / Unknown Venipuncture / Unknown 07/29/2020 4:47 PM OFFSHORING MANAGER 07/29/2020 5:00 PM OFFSHORING MANAGER Narrative [facility] ([facility]) - 08/02/2020 4:10 PM OFFSHORING MANAGER Performed at: - Lab[address] [id number] Press Loader: Cee Dowell MD, Phone: [phone] [facility]formed at: - [facility] [address] [place], [place] [id number] Press Loader: Jeb Hood PhD, Phone: [phone] Rosi Tuttle MD LAB - CHEMISTRY RENE [place] [facility] ([facility]) [address] [place] [address] * TROPONIN I (07/29/2020 4:47 PM OFFSHORING MANAGER) Only the most recent of3 resultswithin the time period is included. Troponin I 0.025 <0.038 ng/mL 07/29/2020 5:40 PM OFFSHORING MANAGER [facility] Blood BLOOD SPECIMEN / Unknown Venipuncture / Unknown 07/29/2020 4:47 PM OFFSHORING MANAGER 07/29/2020 5:01 PM OFFSHORING MANAGER Anayeli Copeland MD LAB - CHEMISTRY RENE [place] Performing Organization Address City/[facility]/ZIP Co de Phone Number [facility]AT[facility]IC LABORATORY [address] [place] [phone] * TRINO BLOOD SCREEN W/REFLEX TITER (07/29/2020 4:47 PM OFFSHORING MANAGER) TRINO Negative Negative 07/31/2020 1:11 PM OFFSHORING MANAGER [facility] Blood BLOOD SPECIMEN / Unknown Venipuncture / Unknown 07/29/2020 4:47 PM OFFSHORING MANAGER 07/29/2020 5:00 PM OFFSHORING MANAGER Narrative [facility] - 07/31/2020 1:11 PM OFFSHORING MANAGER Methodology: Indirect Immunofluorescence Assay (IFA) utilizing Hep-2-Gamma cells. Rosi Tuttle MD LAB - CHEMISTRY [place]ENE [place] [facility] [address] [place] [address] * COMPLEMENT C4 (07/29/2020 4:47 PM OFFSHORING MANAGER) Pathologist [facility] [place] Complement C4 42 15 - 53 mg/dL 07/30/2020 6:49 PM OFFSHORING MANAGER [facility] Blood BLOOD SPECIMEN / Unknown Venipuncture / Unknown 07/29/2020 4:47 PM OFFSHORING MANAGER 07/29/2020 5:00 PM OFFSHORING MANAGER Rosi Tuttle MD LAB - SEROLOGY ORDER LINDA Performing Organization Address [facility]/ZIP Co de Phone Number [facility] [address] [place] [phone] * COLLEEN BLOOD PANEL (07/29/2020 4:47 PM OFFSHORING MANAGER) Pathologist [facility] [place] Comment Path Review Pathologist has reviewed results. 08/01/2020 2:03 PM OFFSHORING MANAGER [facility] Performing Site Reported Performed at [facility], reported by PSYCHIATRIC 08/01/2020 2:03 PM OFFSHORING MANAGER [facility] Comment: Performed by: [facility] [address] [place], [place] [address] Resulted by: [facility] [address] [place], [place] [address] Comment See Report See Separate Pathology Report 08/01/2020 2:03 PM OFFSHORING MANAGER [facility] Blood BLOOD SPECIMEN / Unknown Venipuncture / Unknown 07/29/2020 4:47 PM OFFSHORING MANAGER 07/29/2020 5:00 PM OFFSHORING MANAGER Narrative [facility] - 08/01/2020 2:03 PM OFFSHORING MANAGER PATHOLOGISTS INTERPRETIVE COMMENTS WILL BE PLACED ON SEPARATE REPORT. Rosi Tuttle MD LAB - CHEMISTRY [place]ENE [place] [facility] [address] [place] [address] * (ABNORMAL) PROTEIN ELECTROPHORESIS BLOOD (07/29/2020 4:47 PM OFFSHORING MANAGER) Pathologist [facility] [place] Protein Total 6.3 gm/dL 08/01/2020 2:01 PM [facility] Albumin SPE 3.0(L) 3.9 - 4.9 gm/dl 08/01/2020 2:01 PM [facility] Alpha-1 Globulin 0.28 0.2 - 0.5 gm/dL 08/01/2020 2:01 PM [facility] Kfhvj-0-Sxihte in 1.16(H) 0.4 - 0.8 gm/dL 08/01/2020 2:01 PM [facility] Beta-Globulin 1.14(H) 0.5 - 0.9 gm/dL 08/01/2020 2:01 PM [facility] Gamma Globulin 0.77 0.7 - 1.4 gm/dL 08/01/2020 2:01 PM [facility] Albumin/Globul in Ratio 0.88 08/01/2020 2:01 PM [facility] Performing Site Reported Performed at [facility], reported by PSYCHIATRIC 08/01/2020 2:01 PM [facility] Comment: Performed by: [facility] [address] [place] [id number] Resulted by: [address] [address] Blood BLOOD SPECIMEN / Unknown Venipuncture / Unknown 07/29/2020 4:47 PM OFFSHORING MANAGER 07/29/2020 5:00 PM OFFSHORING MANAGER Narrative [facility] - 08/01/2020 2:01 PM OFFSHORING MANAGER PATHOLOGISTS INTERPRETIVE COMMENTS WILL BE PLACED ON SEPARATE REPORT. Rosi Tuttle MD LAB - CHEMISTRY [place] [facility] [address] [place] [address] * COMPLEMENT C3 (07/29/2020 4:47 PM OFFSHORING MANAGER) Complement C3 153 82 - 185 mg/dL 07/30/2020 6:49 PM [facility] Blood BLOOD SPECIMEN / Unknown Venipuncture / Unknown 07/29/2020 4:47 PM OFFSHORING MANAGER 07/29/2020 5:00 PM OFFSHORING MANAGER Rosi Tuttle MD LAB - CHEMISTRY ORDE ANNIE [facility] [place] [address] * (ABNORMAL) HEPATITIS B SURFACE ANTIBODY QUANT (07/29/2020 1:34 PM OFFSHORING MANAGER) Hepatitis B Virus Surface Antibody Quantitative 11.28(H) 0.00 - 7.99 mIU/ml 07/30/2020 7:59 PM OFFSHORING MANAGER [facility] HBsAb Indetermi cara(A) Non Reactive 07/30/2020 7:59 PM OFFSHORING MANAGER [facility] Blood BLOOD SPECIMEN / Unknown Venipuncture / Unknown 07/29/2020 1:34 PM OFFSHORING MANAGER 07/29/2020 1:34 PM OFFSHORING MANAGER Narrative [facility] - 07/30/2020 7:59 PM OFFSHORING MANAGER The immune status of the individual should be further assessed by considering other factors, such as clinical status, follow-up testing, associated risk factors, and the use of additional diagnostic information. Rosi Tuttle MD LAB - SEROLOGY ORDER LINDA Performing Organization Address City/[facility] Co de Phone Number [facility] [address] [place] [address] * XR CHEST FOR PICC PLMT (07/29/2020 11:24 AM OFFSHORING MANAGER) Anatomical Region Laterality Modality Chest Radiographic Karli ging 07/29/2020 11:2 6 AM OFFSHORING MANAGER Impressions 07/29/2020 11:27 AM OFFSHORING MANAGER Low lung volumes *Reading Radiologist: Ernie Fuller on 07/29/2020 at 11:27 AM Narrative 07/29/2020 11:27 AM OFFSHORING MANAGER Chest AP portable INDICATION: Aftercare central line placement. Chest pain. FINDINGS: Frontal view of the chest without prior shows right IJ catheter ending superior vena cava. Low lung volumes are present with hypoventilatory changes. There is no pneumothorax. The heart size is normal. Postoperative changes of the cervical spine are present. Procedure Note Ernie Fuller MD - 07/29/2020 Chest AP portable INDICATION: Aftercare central line placement. Chest pain. FINDINGS: Frontal view of the chest without prior shows right IJ catheter ending superior vena cava. Low lung volumes are present with hypoventilatory changes. There is no pneumothorax. The heart size is normal. Postoperative changes of the cervical spine are present. IMPRESSION Low lung volumes *Reading Radiologist: Ernie Fuller on 07/29/2020 at 11:27 AM Donovan Freedman MD DIAGNOSTIC IMAGING O RDERABLES * Central Line (07/29/2020 10:41 AM OFFSHORING MANAGER) Narrative Donovan Freedman MD - 07/29/2020 10:41 AM OFFSHORING MANAGER Donovan Freedman MD 07/29/2020 10:46 AM Central Line Date/Time: 07/29/2020 10:43 AM Performed by: Donovan Freedman MD Authorized by: Anayeli Copeland MD Consent: Consent obtained: Verbal Consent given by: Patient Risks discussed: Arterial puncture, bleeding, incorrect placement, pneumothorax and infection Alternatives discussed: No treatment and delayed treatment Pre-procedure details: Hand hygiene: Hand hygiene performed prior to insertion Sterile barrier technique: All elements of maximal sterile technique followed Skin preparation: Alcohol Skin preparation agent: Skin preparation agent completely dried prior to procedure Anesthesia (see MAR for exact dosages): Anesthesia method: Local infiltration Local anesthetic: Lidocaine 1% w/o epi Procedure details: Location: R internal jugular Site selection rationale: Ease of access. ultrasound available Patient position: Trendelenburg Procedural supplies: Double lumen Landmarks identified: no (obese) Ultrasound guidance: yes Sterile ultrasound techniques: Sterile gel and sterile probe covers were used Number of attempts: 1 Successful placement: yes Post-procedure details: Post-procedure: Dressing applied and line sutured Assessment: Blood return through all ports, free fluid flow, no pneumothorax on x-ray and placement verified by x-ray Patient tolerance of procedure: Tolerated well, no immediate complications Anayeli Copeland MD PROCEDURE/MINOR SURG ICAL ORDERABLES * XR SHOULDER RIGHT 2VW OR MORE (07/29/2020 10:33 AM OFFSHORING MANAGER) Anatomical Region Laterality Modality Upper Extremity Radiographic Karli ging 07/29/2020 10:3 4 AM OFFSHORING MANAGER Impressions 07/29/2020 10:37 AM OFFSHORING MANAGER Degenerative changes *Reading Radiologist: Ernie Fuller on 07/29/2020 at 10:37 AM Narrative 07/29/2020 10:37 AM OFFSHORING MANAGER Right shoulder 3 views INDICATION: Right shoulder pain FINDINGS: 3 views of the right shoulder without prior for comparison shows mild degenerative changes of the acromioclavicular joint. There is no acute fracture or subluxation. The humeral head is seated in the glenoid. Postoperative changes of the cervical spine are present. Procedure Note Ernie Fuller MD - 07/29/2020 Right shoulder 3 views INDICATION: Right shoulder pain FINDINGS: 3 views of the right shoulder without prior for comparison shows mild degenerative changes of the acromioclavicular joint. There is no acute fracture or subluxation. The humeral head is seated in the glenoid. Postoperative changes of the cervical spine are present. IMPRESSION Degenerative changes *Reading Radiologist: Ernie Fuller on 07/29/2020 at 10:37 AM Rosi Tuttle MD DIAGNOSTIC IMAGING O RDERABLES * (ABNORMAL) URINE MICROSCOPIC ONLY REFLEX TO CULTURE (07/29/2020 5:10 AM OFFSHORING MANAGER) Reflex Status Culture to follow 07/29/2020 5:28 AM OFFSHORING MANAGER [facility] RBC UA 0-2 None Seen, 0-2, 3-5 # /hpf 07/29/2020 5:28 AM OFFSHORING MANAGER [facility] WBC UA 11-20(A) None Seen, 0-5 # /hpf 07/29/2020 5:28 AM OFFSHORING MANAGER [facility] Bacteria UA None Seen None Seen 07/29/2020 5:28 AM OFFSHORING MANAGER [facility] Squamous Epithelial Cells 0-2 None Seen, 0-2, 3-5 /hpf 07/29/2020 5:28 AM OFFSHORING MANAGER [facility] Mucus UA 1+ /LPF 07/29/2020 5:28 AM OFFSHORING MANAGER [facility] Hyaline Casts 3-5(A) None Seen, 0-2 # /lpf 07/29/2020 5:28 AM OFFSHORING MANAGER [facility] Urine URINE SPECIMEN OBTAINED BY CLEAN CATCH PROCEDURE / Unknown Collection / Unknown 07/29/2020 5:10 AM OFFSHORING MANAGER 07/29/2020 5:13 AM OFFSHORING MANAGER Narrative [facility] - 07/29/2020 5:28 AM OFFSHORING MANAGER Anayeli Copeland MD LAB - URINALYSIS ORD ERABLES [facility] [address] [place] [address] * (ABNORMAL) URINALYSIS REFLEX MICROSCOPIC REFLEX CULTURE (07/29/2020 5:10 AM OFFSHORING MANAGER) Color UA Yellow Straw, Yellow 07/29/2020 5:28 AM [facility] Clarity UA Slt Cloudy(A) Clear 07/29/2020 5:28 AM [facility] Glucose UA Negative Negative 07/29/2020 5:28 AM [facility] Bilirubin UA Negative Negative 07/29/2020 5:28 AM [facility] Comment: Ictotest negative Lot: [id number] EXP: 08/2021 Ketone UA Negative Negative 07/29/2020 5:28 AM [facility] Specific Hasty UA 1.021 1.005 - 1.030 07/29/2020 5:28 AM [facility] Blood UA Negative Negative 07/29/2020 5:28 AM [facility] pH UA 5.0 5.0 - 8.0 pH 07/29/2020 5:28 AM [facility] Protein UA 1+(A) Negative 07/29/2020 5:28 AM [facility] Urobilinogen UA Negative Negative mg/dL 07/29/2020 5:28 AM [facility] Nitrite UA Negative Negative 07/29/2020 5:28 AM [facility] Leukocyte UA 1+(A) Negative 07/29/2020 5:28 AM [facility] Urine Microscopy Urine microscopy to follow 07/29/2020 5:28 AM [facility] Reflex Status Culture to follow 07/29/2020 5:28 AM [facility] Urine URINE SPECIMEN OBTAINED BY CLEAN CATCH PROCEDURE / Unknown Collection / Unknown 07/29/2020 5:10 AM OFFSHORING MANAGER 07/29/2020 5:13 AM OFFSHORING MANAGER Narrative [facility] - 07/29/2020 5:28 AM OFFSHORING MANAGER Anayeli Copeland MD LAB - URINALYSIS ORD ERABLES Performing Organization Address [facility] de Phone Number [facility] LAB[facility] [address] [place] [address] * CULTURE URINE (07/29/2020 5:10 AM OFFSHORING MANAGER) Culture Urine <10,000 CFU/mL urogenital kaelyn DA 07/30/2020 1:26 PM OFFSHORING MANAGER [facility] Urine URINE SPECIMEN OBTAINED BY CLEAN CATCH PROCEDURE / Unknown Collection / Unknown 07/29/2020 5:10 AM OFFSHORING MANAGER 07/29/2020 5:13 AM OFFSHORING MANAGER Anayeli Copeland MD LAB - MICROBIOLOGY O RDERABLES Performing Organization Address [facility] de Phone Number [facility] [address] [place] [id number] [place] [address] * SODIUM URINE RANDOM (07/29/2020 5:10 AM OFFSHORING MANAGER) Sodium Urine 36 mmol/L 07/29/2020 5:32 AM OFFSHORING MANAGER [facility] Urine URINE SPECIMEN OBTAINED BY CLEAN CATCH PROCEDURE / Unknown Collection / Unknown 07/29/2020 5:10 AM OFFSHORING MANAGER 07/29/2020 5:13 AM OFFSHORING MANAGER Anayeli Copeland MD LAB - URINE CHEMISTR Y ORDERABLES Performing Organization Address [facility] de Phone Number [facility] [address] [place] [address] * OSMOLALITY URINE (07/29/2020 5:10 AM OFFSHORING MANAGER) Osmolality Urine 365 50-1,200 mOsm/kg 07/29/2020 5:23 AM OFFSHORING MANAGER [facility] Urine URINE SPECIMEN OBTAINED BY CLEAN CATCH PROCEDURE / Unknown Collection / Unknown 07/29/2020 5:10 AM OFFSHORING MANAGER 07/29/2020 5:13 AM OFFSHORING MANAGER Anayeli Copeland MD LAB - URINE CHEMISTR Y ORDERABLES Performing Organization Address City/[facility]/ZIP Co de Phone Number [facility] [address] [place] [address] * CREATININE URINE RANDOM (07/29/2020 5:10 AM OFFSHORING MANAGER) Creatinine Urine 337.23 mg/dL 07/29/2020 5:33 AM OFFSHORING MANAGER [facility] Urine URINE SPECIMEN OBTAINED BY CLEAN CATCH PROCEDURE / Unknown Collection / Unknown 07/29/2020 5:10 AM OFFSHORING MANAGER 07/29/2020 5:13 AM OFFSHORING MANAGER Anayeli Copeland MD LAB - URINE CHEMISTR Y ORDERABLES Performing Organization Address [facility] Co de Phone Number [facility] [address] [place] [address] * CT RENAL STONE PROTOCOL (07/29/2020 3:07 AM OFFSHORING MANAGER) Anatomical Region Laterality Modality Abdomen Computed Tomogra phy 07/29/2020 8:46 AM OFFSHORING MANAGER Impressions 07/29/2020 8:51 AM OFFSHORING MANAGER Fatty liver Atrophy to the pancreas Increased colon and rectal content Ventral umbilical hernia Periumbilical fat containing hernia *Reading Radiologist: Ernie Fuller on 07/29/2020 at 8:51 AM Narrative 07/29/2020 8:[address] ABDOMEN NONCONTR[address] CT PELVIS NONCONTRAST CLINICAL INDICATION: Abdominal pain. Acute renal failure. Hyperkalemia. TECHNIQUE: 3 mm images through the abdomen and pelvis noncontrast . [facility] interpreted the exam and sent a preliminary report. COMPARISON: None FINDINGS CT abdomen: Mild bilateral lower lobe atelectasis is present. There is diffuse fatty infiltration to the liver. The gallbladder is absent. The spleen is unremarkable. There is atrophy of the pancreas. The adrenal glands are not enlarged. No renal calculi or obstructive uropathy is demonstrated. No abdominal aortic aneurysm is present. There is increased stool and content throughout the colon. No bowel obstruction, free air or free fluid is present. CT PELVIS: Midline ventral umbilical hernia containing fat and a small portion of bowel is present. There is a periumbilical fat-containing hernia. No bowel obstruction is present. There is increased stool in the lower colon and rectum. Urinary bladder is partially distended. No pericecal mesenteric inflammatory changes are identified. There are multilevel degenerative changes of the spine. Procedure Note Ernie Fuller MD - 07/29/[address] PELVIS NONCONTRAST CLINICAL INDICATION: Abdominal pain. Acute renal failure. Hyperkalemia. TECHNIQUE: 3 mm images through the abdomen and pelvis noncontrast . [facility] interpreted the exam and sent a preliminary report. COMPARISON: None FINDINGS CT abdomen: Mild bilateral lower lobe atelectasis is present. There is diffuse fatty infiltration to the liver. The gallbladder is absent. The spleen is unremarkable. There is atrophy of the pancreas. The adrenal glands are not enlarged. No renal calculi or obstructive uropathy is demonstrated. No abdominal aortic aneurysm is present. There is increased stool and content throughout the colon. No bowel obstruction, free air or free fluid is present. CT PELVIS: Midline ventral umbilical hernia containing fat and a small portion of bowel is present. There is a periumbilical fat-containing hernia. No bowel obstruction is present. There is increased stool in the lower colon and rectum. Urinary bladder is partially distended. No pericecal mesenteric inflammatory changes are identified. There are multilevel degenerative changes of the spine. IMPRESSION Fatty liver Atrophy to the pancreas Increased colon and rectal content Ventral umbilical hernia Periumbilical fat containing hernia *Reading Radiologist: Ernie Fuller on 07/29/2020 at 8:51 AM Anayeli Copeland MD CT ORDERABLES * EKG 12-LEAD (07/29/2020 2:52 AM OFFSHORING MANAGER) Only the most recent of2 resultswithin the time period is included. Ventricular Rate 101 BPM [facility] Atrial Rate 101 BPM [facility] P-R Interval 142 ms [facility] QRS Duration ms 100 ms [facility] Q-T Interval ms 332 ms [facility] QTC Calculation (Bezet) 430 ms [facility] Calculated P [place] 52 degrees [facility] Calculated R [place] 26 degrees [facility] Calculated T [place] 51 degrees [facility] Interpretation EKG Sinus tachycardia Low voltage QRS Borderline ECG When compared with ECG of 14-OCT-2019 10:47, No significant change was found Confirmed by JEREMIE MAURER MD ([id number]) on 07/31/2020 8:44:54 PM [facility] M[facility] 07/29/2020 2:52 AM OFFSHORING MANAGER 07/31/2020 8:44 PM OFFSHORING MANAGER Anayeli Copeland MD ECG ORDERABLES [facility] * (ABNORMAL) COMPREHENSIVE METABOLIC PANEL (07/29/2020 2:42 AM OFFSHORING MANAGER) Only the most recent of2 resultswithin the time period is included. Glucose 104 70 - 105 mg/dL 07/29/2020 3:05 AM [facility] Sodium 138 136 - 145 mmol/L 07/29/2020 3:05 AM [facility] Potassium 5.4(H) 3.5 - 5.1 mmol/L 07/29/2020 3:05 AM [facility] Chloride 107 98 - 107 mmol/L 07/29/2020 3:05 AM [facility] CO2 19(L) 23 - 31 mmol/L 07/29/2020 3:05 AM [facility] Calcium 8.7 8.4 - 10.4 mg/dL 07/29/2020 3:05 AM [facility] Anion Gap 12 8 - 18 mmol/L 07/29/2020 3:05 AM [facility] Comment:Attention clinician: Reference Range change. BUN 102(H) 8.4 - 25.7 mg/dL 07/29/2020 3:05 AM [facility] LABORATORY Creatinine 5.82(H) 0.72 - 1.25 mg/dL 07/29/2020 3:05 AM [facility] Alkaline Phosphatase 85 40 - 150 U/L 07/29/2020 3:05 AM [facility] Comment:Attention clinician: Reference Range change. ALT 30 0 - 61 U/L 07/29/2020 3:05 AM [facility] AST 35(H) 5 - 34 U/L 07/29/2020 3:05 AM [facility] Protein Total 6.7 6.4 - 8.3 gm/dL 07/29/2020 3:05 AM OFFSHORING MANAGER [facility] Albumin 3.8 3.5 - 5.2 gm/dL 07/29/2020 3:05 AM OFFSHORING MANAGER [facility] Bilirubin Total 0.5 0.2 - 1.2 mg/dL 07/29/2020 3:05 AM OFFSHORING MANAGER [facility] Comment:Attention clinician: Reference Range change. eGFR by MDRD 10(L) >60 mL/min/1.7 3m2 07/29/2020 3:05 AM OFFSHORING MANAGER [facility] eGFR by MDRD 12(L) >60 mL/min/1.7 3m2 07/29/2020 3:05 AM OFFSHORING MANAGER [facility] Blood BLOOD SPECIMEN / Unknown Venipuncture / Unknown 07/29/2020 2:42 AM OFFSHORING MANAGER 07/29/2020 2:45 AM OFFSHORING MANAGER Anayeli Copeland MD LAB - CHEMISTRY [facility] [place] Organization Address City/State/[facility] Co de Phone Number [facility] [address] [place] [address] * ETT Placement (03/23/2019 10:39 AM CDT) Narrative Akiko Haney APRN-CRNA - 03/23/2019 10:39 AM CDT Akiko Haney APRN-CRNA 03/23/2019 10:41 AM Endotracheal Tube Placement: Patient Location: OR. Intubation Event Date/Time: 03/23/2019 10:29 AM Procedure: intubation ([id number]). Procedure Section: Sedation: under general anesthesia. Indications for Airway Management: anesthesia Procedure pretreatments used? No Induction: modified rapid sequence Patient Position: sniffing Mask Ventilation: not attempted. Blade Type: Oliverio Blade Size: 4 Laryngoscopy View: grade 1 (full cords) Intubation Adjuncts: stylet Tube: endotracheal tube Placement: oral Tube type: cuff - inflated Tube Size (MM): 8 Depth of Insertion (CM): 23 Measured From: lips Cuff volume (mL): 7 Cuff Inflated With: air Number of Attempts: 1. Placement Verified By: direct visualization, bilateral breath sounds, chest auscultation and CO2 monitor Tube secured with: adhesive tape. Difficult Airway? No. Procedure Start Time: 03/23/2019 10:29 AM. Staff Section Anesthesia Provider: Akiko Haney, OUTPATIENT PROGRAM COORDINATOR-JOSHUA, Performed the procedure Tavo Marquez MD GENERAL ANESTHESIA O RDERABLES * GROSS + MICRO EXAM (STL) (03/23/2019 9:10 AM CDT) Case Report Surgical Pathology Report Case: [id number] Authorizing Provider: Jamie Rivas MD Collected: 03/23/2019 09:10 AM Ordering Location: [facility] Received: 03/23/2019 01:11 PM Pathologist: Carl Casper MD Specimen: Gallbladder, GALLBLADDER 03/25/2019 11:49 AM CDT [facility] Final Diagnosis A. Gallbladder, cholecystectomy: -- Chronic cholecystitis -- Cholelithiasis -- Cholesterolosis AB/ns 03/25/2019 11:49 AM CDT [facility] Gross Description Received in formalin in a single container labeled Tom Solis, gallbladder, consists of an 11.8 x 3.5 x 3.5 cm gallbladder. The serosa is unremarkable. Sections of the gallbladder show a green velvety mucosa with bright yellow striations. Within the gallbladder is green-yellow bile and multiple green-yellow oval gallstones ranging from 0.3 cm to 1.1 cm. The gallbladder wall measures 0.2 cm in thickness. Institute Scient[employer] sections are submitted in cassette A1 CH/scs 03/25/2019 11:49 AM CDT [facility] Microscopic Description The sections of the gallbladder show slight chronic inflammation, cholesterolosis, but no Rokitansky-Aschoff sinuses or dysplasia. AB/ns 03/25/2019 11:49 AM CDT [facility] Disclaimer All histochemical and/or immunohistochemical results are interpreted with controls that demonstrate appropriate staining reactions before reporting results. Note on use of immunocytochemistry reagents: This test was developed and its performance characteristic determined by [facility], Department of Laboratory Medicine. It has not been cleared or approved by the U.S. Food and Drug Administration (FDA). The FDA has determined that such clearance or approval is not necessary. The test is used for clinical purpose. It should not be regarded as investigational or for research. This laboratory is certified to perform high complexity testing. 03/25/2019 11:49 AM CDT [facility] Embedded Images 03/25/2019 11:49 AM CDT [facility] Pathology/Cytolo gy ENTIRE GALLBLADDER / Unknown 03/23/2019 9:10 AM CDT 03/23/2019 1:11 PM CDT Jamie Rivas MD LAB - PATHOLOGY/CYTO LOGY ORDERABLES [facility] [address] [place] [address] * LAB RESULTS ORDER (02/24/2019) Jamie Rivas MD LAB - THERAPEUTIC DR UG MONITORING ORDERABLES * IMAGING RADIOLOGY XRAY RESULTS ORDER (02/24/2019) Only the most recent of4 resultswithin the time period is included. Anatomical Region Laterality Modality Other Jamie Rivas MD IMAGING * (ABNORMAL) GENERAL HEALTH PANEL (11/11/2013 9:21 AM CDT) Only the most recent of2 resultswithin the time period is included. Glucose 93 65 - 99 mg/dL [facility] INSURANCE BILL BUN 17 6 - 24 mg/dL [facility] INSURANCE BILL Creatinine 0.76 0.76 - 1.27 mg/dL [facility] INSURANCE BILL eGFR by MDRD 106 >59 mL/min/1. 73 [facility] INSURANCE BILL eGFR by MDRD 123 >59 mL/min/1. 73 [facility] INSURANCE BILL BUN/Creatinine Ratio 22(H) 9 - 20 [facility] INSURANCE BILL Sodium 140 134 - 144 mmol/L [facility] INSURANCE BILL Potassium 4.5 3.5 - 5.2 mmol/L [facility] INSURANCE BILL Chloride 99 97 - 108 mmol/L [facility] INSURANCE BILL CO2 24 19 - 28 mmol/L [facility] INSURANCE BILL Comment: Effective November 22, 2013, the reference interval for Carbon Dioxide, Total will be changing to: 0 - 30 days 15 - 27 31 d - 5 months 15 - 26 6 m - 11 months 15 - 25 1 - 12 years 17 - 27 > 12 years 18 - 29 Calcium 9.8 8.7 - 10.2 mg/dL [facility] INSURANCE BILL Protein Total 7.4 6.0 - 8.5 g/dL [facility] INSURANCE BILL Albumin 4.8 3.5 - 5.5 g/dL [facility] INSURANCE BILL Globulin Total 2.6 1.5 - 4.5 g/dL [facility] INSURANCE BILL Albumin/Globulin Ratio 1.8 1.1 - 2.5 [facility] INSURANCE BILL Bilirubin Total 0.5 0.0 - 1.2 mg/dL [facility] INSURANCE BILL Alkaline Phosphatase 101 39 - 117 IU/L [facility] INSURANCE BILL AST 25 0 - 40 IU/L [facility] INSURANCE BILL ALT 23 0 - 44 IU/L [facility] INSURANCE BILL TSH 0.956 0.450 - 4.500 uIU/mL [facility] INSURANCE BILL Comment NOT NEEDED [facility] INSURANCE BILL Comment:Ancillary determined the test is not needed WBC 5.0 3.4 - 10.8 x10E3/uL [facility] INSURANCE BILL RBC 4.43 4.14 - 5.80 x10E6/uL [facility] INSURANCE BILL Hemoglobin 12.8 12.6 - 17.7 g/dL [facility] INSURANCE BILL Hematocrit 39.2 37.5 - 51.0 % [facility] INSURANCE BILL MCV 89 79 - 97 fL [facility] INSURANCE BILL MCH 28.9 26.6 - 33.0 pg [facility] INSURANCE BILL MCHC 32.7 31.5 - 35.7 g/dL [facility] INSURANCE BILL RDW 15.6(H) 12.3 - 15.4 % [facility] INSURANCE BILL Platelet Count 290 155 - 379 x10E3/uL [facility] INSURANCE BILL Comment: Effective November 22, 2013, the reference interval for Platelets will be changing for 13 years and older to: 150 - 379 Granulocytes % 60 40 - 74 % [facility] INSURANCE BILL Lymphocytes % 32 14 - 46 % [facility] INSURANCE BILL Monocytes % 7 4 - 12 % [facility] INSURANCE BILL Eosinophils % 1 0 - 5 % [facility] INSURANCE BILL Basophils % 0 0 - 3 % [facility] INSURANCE BILL Immature Cells NOT NEEDED [facility] INSURANCE BILL Comment:Ancillary determined the test is not needed Granulocytes Absolute 2.9 1.4 - 7.0 x10E3/uL [facility] INSURANCE BILL Lymphocytes Absolute 1.6 0.7 - 3.1 x10E3/uL [facility] INSURANCE BILL Monocytes Absolute 0.4 0.1 - 0.9 x10E3/uL [facility] INSURANCE BILL Eosinophils Absolute 0.1 0.0 - 0.4 x10E3/uL [facility] INSURANCE BILL Basophils Absolute 0.0 0.0 - 0.2 x10E3/uL [facility] INSURANCE BILL Immature Granulocytes 0 0 - 2 % [facility] INSURANCE BILL Immature Granulocytes Absolute 0.0 0.0 - 0.1 x10E3/uL [facility] INSURANCE BILL nRBC NOT NEEDED [facility] INSURANCE BILL Comment:Ancillary determined the test is not needed Comment Hematology NOT NEEDED [facility] INSURANCE BILL Comment:Ancillary determined the test is not needed BLOOD SPECIMEN / Unknown 11/11/2013 9:21 AM CDT 11/11/2013 12:45 PM CDT Narrative Resulting Agency Comment [facility] [address] [id number] Sanaz Harrison MD LAB - CHEMISTRY ORD ERABLES [facility] INSURANCE BILL * (ABNORMAL) LIPID PROFILE (11/11/2013 9:21 AM CDT) Only the most recent of3 resultswithin the time period is included. Cholesterol 238(H) 100 - 199 mg/dL [facility] INSURANCE BILL Triglycerides 414(H) 0 - 149 mg/dL [facility] INSURANCE BILL HDL Cholesterol 34(L) >39 mg/dL [facility] INSURANCE BILL Comment: According to ATP-III Guidelines, HDL-C >59 mg/dL is considered a negative risk factor for CHD. VLDL Calculated 5 - 40 mg/dL [facility] INSURANCE BILL Comment: The calculation for the VLDL cholesterol is not valid when triglyceride level is >400 mg/dL. LDL Calculated 0 - 99 mg/dL [facility] INSURANCE BILL Comment: Triglyceride result indicated is too high for an accurate LDL cholesterol estimation. Comment NOT NEEDED [facility] INSURANCE BILL Comment:Ancillary determined the test is not needed Blood specimen (specimen) BLOOD SPECIMEN / Unknown 11/11/2013 9:21 AM CDT 11/11/2013 12:45 PM CDT Narrative Resulting Agency Comment [facility] [address] [facility] [phone] Sanaz Harrison MD LAB - CHEMISTRY ORD ERABLES [facility] INSURANCE BILL * XR CERVICAL SPINE 2 OR 3 VW (07/04/2010 12:21 PM OFFSHORING MANAGER) Anatomical Region Laterality Modality Spine Radiographic Karli ging 07/04/2010 12:5 7 PM OFFSHORING MANAGER Narrative 07/04/2010 1:31 PM OFFSHORING MANAGER CERVICAL SPINE - FOUR VIEWS INDICATION: Neck pain. FINDINGS: AP, lateral, swimmer's view, and open-mouth odontoid views of the cervical spine were obtained. There is anterior metallic fusion at C4, C5 and C6 with bony plate and screws. There is intervertebral disc space devices at both levels. There is fusion of the C3-C4 region. This is probably postoperative in nature. No acute fracture or hardware complication is seen. There is no change since prior of February 01, 2010. Procedure Note Ernie Fuller MD - 07/04/2010 CERVICAL SPINE - FOUR VIEWS INDICATION: Neck pain. FINDINGS: AP, lateral, swimmer's view, and open-mouth odontoid views of the cervical spine were obtained. There is anterior metallic fusion at C4, C5 and C6 with bony plate and screws. There is intervertebral disc space devices at both levels. There is fusion of the C3-C4 region. This is probably postoperative in nature. No acute fracture or hardware complication is seen. There is no change since prior of February 01, 2010. Ricardo Singleton MD DIAGNOSTIC IMAGING O RDERABLES * XR CERV SPINE SINGLE VIEW IN PACU (02/01/2010 5:16 PM CDT) Only the most recent of3 resultswithin the time period is included. Anatomical Region Laterality Modality Spine Radiographic Karli ging 02/01/2010 5:22 PM CDT Narrative 02/01/2010 5:46 PM CDT INDICATION: Neck pain. FINDINGS: Examination of the cervical spine in limited AP and crosstable lateral reveals an anterior cervical fusion of the C4, C5, and C6 vertebral bodies by a plate plate and screws. A prior bony fusion is noted at the C3-C4 level. Intervertebral devices are noted at the C4-C5 and C5-C6 levels. Procedure Note Roland Meyers MD - 02/01/2010 INDICATION: Neck pain. FINDINGS: Examination of the cervical spine in limited AP and crosstable lateral reveals an anterior cervical fusion of the C4, C5, and C6 vertebral bodies by a plate plate and screws. A prior bony fusion is noted at the C3-C4 level. Intervertebral devices are noted at the C4-C5 and C5-C6 levels. Ricardo Singleton MD DIAGNOSTIC IMAGING O RDERABLES * CARDIAC EKG ORDER (01/23/2010 5:11 PM CDT) Narrative Procedure Note Document, Scanned - 01/23/2010 10:00 AM CDT Scanned Document CARDIAC SERVICES ORD ERABLES * URINALYSIS ROUTINE AUTO (01/22/2010 3:05 PM CDT) Color UA YELLOW [facility] Character UA CLEAR [facility] Specific Hasty UA 1.030 1.005 - 1.0300 [facility] pH UA 5.5 4.6 - 8.0 pH Units [facility] Leukocyte UA NEGATIVE Negative /ul [facility] Nitrite UA NEGATIVE Negative [facility] Protein UA NEGATIVE Negative mg/dl [facility] Glucose UA NEGATIVE Normal mg/dl [facility] Ketone UA NEGATIVE Negative mg/dl [facility] Urobilinogen UA 1.0 Normal Yaneth Units [facility] Bilirubin UA NEGATIVE Negative mg/dl [facility] Blood UA NEGATIVE Negative /ul [facility] WBC UA <5 /HPF [facility] RBC UA <5 /HPF [facility] Epithelial Cell UA <5 /HPF [facility] Casts UA <2 /LPF [facility] Bacteria UA NEGATIVE [facility] URINE / Unknown 01/22/2010 3 :05 PM CDT 01/22/2010 3:54 PM CDT Ricardo Singleton MD LAB - URINALYSIS ORD ERABLES [facility] [address] [place] [address] * TYPE + SCREEN PANEL (01/22/2010 3:05 PM CDT) ABO Rh O Neg [facility] Antibody Screen Neg Negative [facility] BLOOD SPECIMEN / Unknown 01/22/2010 3:05 PM CDT 01/22/2010 3:49 PM CDT Ricardo Singleton MD LAB - BLOOD BANK ORD [facility] Performing Organization Address [facility] de Phone Number [facility] [address] [place] [address] * HGB HCT PANEL (01/22/2010 3:05 PM CDT) Hemoglobin 13.2 13.0 - 18.0 gm/dl [facility] Hematocrit 40.0 39.0 - 54.0 % [facility] BLOOD SPECIMEN / Unknown 01/22/2010 3:05 PM CDT 01/22/2010 3:49 PM CDT Ricardo Singleton MD LAB - HEMATOLOGY ORD ERABLES Performing Organization Address [facility] de Phone Number [facility] [address] [place] [address] * NUC BONE SCAN LIMITED AREA (01/17/2010 12:33 PM CDT) Anatomical Region Laterality Modality Nuclear Medicine 01/17/2010 1:47 PM CDT Impressions 01/17/2010 3:48 PM CDT NEGATIVE LIMITED BONE SCAN OF THE SHOULDERS AND CERVICAL SPINE REGION Narrative 01/17/2010 3:48 PM CDT LIMITED RADIONUCLIDE BONE SCAN CLINICAL INDICATION: Shoulder pain RADIONUCLIDE DOSE: 20 mCi technetium 99m HDP intravenously on 01/17/2010. Anterior and posterior images were obtained of the upper chest, neck and shoulders bilaterally. There is a normal pattern of tracer distribution without focally increased tracer uptake to suggest occult bony process. Procedure Note Jerrell Kunz MD - 01/17/2010 LIMITED RADIONUCLIDE BONE SCAN CLINICAL INDICATION: Shoulder pain RADIONUCLIDE DOSE: 20 mCi technetium 99m HDP intravenously on 01/17/2010. Anterior and posterior images were obtained of the upper chest, neck and shoulders bilaterally. There is a normal pattern of tracer distribution without focally increased tracer uptake to suggest occult bony process. IMPRESSION NEGATIVE LIMITED BONE SCAN OF THE SHOULDERS AND CERVICAL SPINE REGION Ricardo Singleton MD NM ORDERABLES Care Teams Transfer Car Operator Relationship Specialty Start Date End Date Armani Crooks MD [address] [place] [id number] PCP - General 04/20/22 Sandeep Ortiz MD Urology 10/18/14
--- OUTSIDE RECORDS SUMMARY | 2024-07-19 12:55 | XMS_ITS | Clinical Summary ---
Author Organization [facility] Address [address] [place] [address] Care Team Providers Care Technician Biological Health Name Role Phone Sandeep Ortiz MD Unavailable [phone] Armani Crooks MD Primary Care Provider [phone] Source Comments [facility],non-owned Affiliates and Associated Physician Practices is amultiple site organization consisting of ambulatory clinics and hospital sitesin [place], [place], [place] and [place]. This disclosure is being madepursuant to the Care Everywhere program and may not contain all information available regarding this patient. Last updated 18.[facility] Allergies Active Allergy Reactions Criticality Noted Date Comments Allopurinol Other 07/29/2020 Pt is unsure of what reaction is Medications * Be aware that medications may not be up to date on this document. Alwaysverify current medications with the patient. Medication Sig Dispensed Refills Start Date End Date Status ROPINirole (REQUIP) 5 MG tablet Take 5 mg by mouth at bedtime. 01/22/2010 Active Acetaminophen (TYLENOL PO) Active metFORMIN (GLUCOPHAGE) 1000 MG tablet Take 1,000 mg by mouth 2 times daily with morning and evening meal Active ferrous sulfate 325 (65 FE) MG tablet Take 325 mg by mouth 2 times daily with morning and evening meal Active finasteride (PROSCAR) 5 MG tablet Take 5 mg by mouth once daily Active fenofibrate (LOFIBRA) 160 MG tablet Take 160 mg by mouth once daily Take with largest meal of the day. Active amLODIPine (NORVASC) 5 MG tablet Take 1 (one) tablet by mouth once daily 30 tablet 08/02/2020 Active losartan (COZAAR) 25 MG tablet Take 1 (one) tablet by mouth once daily 30 tablet 08/02/2020 Active Active Problems Problem Noted Date Diagnosed Date Hyperkalemia 07/29/2020 Acute renal failure 07/29/2020 S/P laparoscopic cholecystectomy 03/23/2019 Chronic cholecystitis 03/23/2019 Generalized anxiety disorder 04/13/2014 Insomnia 11/10/2013 Overview (11/10/2013): Controlled with zolpidem (AMBIEN) 10 MG tablet Obstructive sleep apnea 06/10/2013 Overview (03/09/2015): Mixed hyperlipidemia 04/14/2013 Overview (11/10/2013): Controlled with gemfibrozil (LOPID) 600 MG tablet Morbid obesity 04/14/2013 Essential hypertension 11/23/2012 Overview (03/09/2015): Controlled with lisinopril (PRINIVIL; ZESTRIL) 20 MG tablet Major depression 11/23/2012 Overview (11/10/2013): Controlled with citalopram (CELEXA) 40 MG tablet, Restless leg syndrome Overview (11/10/2013): Controlled with ROPINirole (REQUIP) 5 MG tablet Immunizations Name Administration Dates Next Due INFLUENZA VACCINE, TRIV. (AF LURIA, FLUZONE TRIVALENT; 6MO+) (IIV3) 04/14/2013 INFLUENZA VACCINE 03/23/2014 Family History Medical History Relation Name Comments Cancer Father lung. . smo ker. Diabetes Maternal Aunt Diabetes Maternal Grandmother Diabetes Paternal Grandmother Relation Name Status Comments Father Alive Maternal Aunt Maternal Grandmother Paternal Grandmother Social History Tobacco Use Types Packs/Day Years [...] Comments Blood Pressure 162/95 08/01/2020 8:56 AM INSTRUMENT TECHNICIAN APPRENTICE Pulse 70 08/01/2020 8:56 AM INSTRUMENT TECHNICIAN APPRENTICE Temperature 36.3 C (97.3 F) 08/01/2020 8:56 AM INSTRUMENT TECHNICIAN APPRENTICE Respiratory Rate 18 08/01/2020 8:56 AM INSTRUMENT TECHNICIAN APPRENTICE Oxygen Saturation 98% 08/01/2020 8:56 AM INSTRUMENT TECHNICIAN APPRENTICE Inhaled Oxygen Concentration - - Weight 145.2 kg (320 lb) 07/29/2020 2:29 AM INSTRUMENT TECHNICIAN APPRENTICE Height 180.3 cm (5' 11 ) 07/29/2020 2:29 AM INSTRUMENT TECHNICIAN APPRENTICE Body Mass Index 44.63 07/29/2020 2:29 AM INSTRUMENT TECHNICIAN APPRENTICE Plan of Treatment Health Maintenance Due Date Last Done Comments COLOGUARD (AGES 45-75) - COLON CA SCREENING 1962 COLON MONITORING 1962 COLONOSCOPY - COLON CA SCREENING 1962 CT COLONOGRAPHY - COLON CA SCREENING 1962 Colorectal Cancer Screening 1962 FIT - COLON CA SCREENING 1962 FLEX SIG - COLON CA SCREENING 1962 HIV SCREENING 1977 DTAP/TDAP/TD VACCINES (1 - Tdap) 1981 PNEUMOCOCCAL VACCINE 50+ (1 of 1 - PCV) 2012 ZOSTER VACCINE (1 of 2) 2012 LIPID TESTING 11/11/2018 11/11/2013, 1111/2012, 11/23/2012 Respiratory Syncytial Virus (RSV) Vaccine Pt: or over 60 yrs (1 - Risk 60-74 years 1-dose series) 2022 SCREENING FOR DIABETES 08/01/2023 1, 08/01/2020, 07/31/2020, Additional history exists COVID-19 VACCINE (2 - 2023- season) 2024 07/14/2020 INFLUENZA VACCINE (#1) 2024 0, 03/23/2014, 04/14/2013 DEPRESSION SCREENING 06/09/2024 MEDICARE AWV CALENDAR YEAR 2024 HEPATITIS C SCREENING Completed 07/29/2020 HEPATITIS B VACCINE Aged Out No longe r eligible based on patient's age to complete this topic HIB VACCINE Aged Out No longer eligi ble based on patient's age to complete this topic HPV VACCINE Aged Out No longer eligi ble based on patient's age to complete this topic MENINGOCOCCAL (Group B) VACCINE Aged Out No longer eligible based on patient's age to complete this topic MENINGOCOCCAL VACCINE Aged Out No elizabeth pao eligible based on patient's age to complete this topic PNEUMOCOCCAL VACCINE Aged Out No long er eligible based on patient's age to complete this topic Goals Goal Patient Goal Type Associated Problems Recent Progress Patient-Stated? Author Blood Pressure < 140/90 Blood Pressure 162/95(2020 8:56 AM INSTRUMENT TECHNICIAN APPRENTICE) No Vale Rogers Procedures Procedure Name Priority Date/Time Associated Diagnosis Comments RENAL FUNCTION PANEL AM Draw 08/01/2020 4:02 AM INSTRUMENT TECHNICIAN APPRENTICE HEPATITIS SCREEN ACUTE STAT 07/29/2020 4:51 PM INSTRUMENT TECHNICIAN APPRENTICE LIPID PROFILE Routine 11/11/2013 9:21 AM CDT Mixed hyperlipidemia from Last 3 Months or Most Recently Relevant to Health Maintenance Results * RENAL FUNCTION PANEL (08/01/2020 4:02 AM INSTRUMENT TECHNICIAN APPRENTICE) Glucose 96 70 - 105 mg/dL 08/01/2020 4:42 AM INSTRUMENT TECHNICIAN APPRENTICE [facility] Sodium 140 136 - 145 mmol/L 08/01/2020 4:42 AM INSTRUMENT TECHNICIAN APPRENTICE [facility] Potassium 3.6 3.5 - 5.1 mmol/L 08/01/2020 4:42 AM INSTRUMENT TECHNICIAN APPRENTICE [facility] Chloride 105 98 - 107 mmol/L 08/01/2020 4:42 AM INSTRUMENT TECHNICIAN APPRENTICE [facility] CO2 24 23 - 31 mmol/L 08/01/2020 4:42 AM INSTRUMENT TECHNICIAN APPRENTICE [facility] Calcium 9.2 8.4 - 10.4 mg/dL 08/01/2020 4:42 AM INSTRUMENT TECHNICIAN APPRENTICE [facility] Anion Gap 11 8 - 18 mmol/L 08/01/2020 4:42 AM INSTRUMENT TECHNICIAN APPRENTICE [facility] Comment:Attention clinician: Reference Range change. BUN 25 8.4 - 25.7 mg/dL 08/01/2020 4:42 AM INSTRUMENT TECHNICIAN APPRENTICE [facility] Creatinine 0.89 0.72 - 1.25 mg/dL 08/01/2020 4:42 AM INSTRUMENT TECHNICIAN APPRENTICE [facility] Albumin 3.7 3.5 - 5.2 gm/dL 08/01/2020 4:42 AM INSTRUMENT TECHNICIAN APPRENTICE [facility] Phosphorus 3.5 2.3 - 4.7 mg/dL 08/01/2020 4:42 AM INSTRUMENT TECHNICIAN APPRENTICE [facility] Comment:Attention clinician: Reference Range change. eGFR by MDRD >60 >60 mL/min/1.7 3m2 08/01/2020 4:42 AM INSTRUMENT TECHNICIAN APPRENTICE [facility] eGFR by MDRD >60 >60 mL/min/1.7 3m2 08/01/2020 4:42 AM INSTRUMENT TECHNICIAN APPRENTICE [facility] Blood BLOOD SPECIMEN / Unknown Venipuncture / Unknown 08/01/2020 4:02 AM INSTRUMENT TECHNICIAN APPRENTICE 08/01/2020 4:18 AM INSTRUMENT TECHNICIAN APPRENTICE Rosi Tuttle MD LAB - CHEMISTRY [facility] Performing Organization Address [facility] de Phone Number [facility] [address] [place] [phone] * HEPATITIS SCREEN ACUTE (07/29/2020 4:51 PM INSTRUMENT TECHNICIAN APPRENTICE) [facility] HAV Antibody IgM Non Reactive Non Reactive 07/29/2020 5:51 PM INSTRUMENT TECHNICIAN APPRENTICE [facility] HBsAg Non Reactive Non Reactive 07/29/2020 5:51 PM INSTRUMENT TECHNICIAN APPRENTICE [facility] HBc Antibody IgM Non Reactive Non Reactive 07/29/2020 5:51 PM INSTRUMENT TECHNICIAN APPRENTICE [facility] HCV Antibody Screen Non Reactive Non Reactive 07/29/2020 5:51 PM INSTRUMENT TECHNICIAN APPRENTICE [facility] Blood BLOOD SPECIMEN / Unknown Venipuncture / Unknown 07/29/2020 4:51 PM INSTRUMENT TECHNICIAN APPRENTICE 07/29/2020 5:01 PM INSTRUMENT TECHNICIAN APPRENTICE Narrative [facility] - 07/29/2020 5:51 PM INSTRUMENT TECHNICIAN APPRENTICE Non Reactive - Antibodies to Hepatitis C virus (HCV) were not detected, result does not exclude early acute HCV infection. Rosi Tuttle MD LAB - CHEMISTRY [facility] Performing Organization Address [facility] Co de Phone Number [facility] [address] [place] [phone] * (ABNORMAL) LIPID PROFILE (11/11/2013 9:21 AM CDT) Cholesterol 238(H) 100 - 199 mg/dL [facility] INSURANCE BILL Triglycerides 414(H) 0 - 149 mg/dL [facility] INSURANCE BILL HDL Cholesterol 34(L) >39 mg/dL [facility] INSURANCE BILL Comment: According to ATP-III [...] PM CDT Narrative Resulting Agency Comment [facility] [address] [phone] Sanaz Harrison MD LAB - CHEMISTRY ORD ERABLES [facility] INSURANCE BILL from Last 3 Months or Most Recently Relevant to Health Maintenance Advance Directives * Full Code (Latest Code Status on File) Date Activated Date Inactivated Comments 07/29/2020 2:13 PM 08/01/2020 3:59 PM * Full Code Date Activated Date Inactivated Comments 07/29/2020 7:18 AM 07/29/2020 2:13 PM * Full Code Date Activated Date Inactivated Comments 03/23/2019 2:37 PM 03/24/2019 2:59 PM * Full Code Date Activated Date Inactivated Comments 02/01/2010 7:44 PM 02/02/2010 10:39 PM Care Teams Technician Biological Health Relationship Specialty Start Date End Date Armani Crooks MD [address] [place] [id number] PCP - General 04/20/22 Sandeep Ortiz MD Urology 10/18/14
--- OUTSIDE RECORDS SUMMARY | 2024-07-19 12:55 | XMS_ITS | Clinical Summary ---
Author Organization [facility] Address [facility] [place] [address] Care Team Providers Care Terminal System Operator Name Role Phone Parker Cedillo MD Primary Care Provider [phone] Allergies Active Allergy Reactions Criticality Noted Date Comments Allopurinol Hives 03/08/2019 Medications metFORMIN 1000 MG tablet Take 1 tablet (1,000 mg total) by mouth 2 (two) times daily with meals. Active ropinirole 2 MG tablet Take 1 tablet (2 mg total) by mouth nightly at bedtime. Active finasteride 5 MG tablet Take 1 tablet (5 mg total) by mouth daily. Active fenofibrate 160 MG tablet Take 1 tablet (160 mg total) by mouth daily. Active valsartan-hydrochlo rothiazide (DIOVAN HCT) 160-12.5 MG tablet Take 1 tablet by mouth daily. Active ferrous sulfate, 65 mg elemental, 325 (65 FE) MG tablet Take 1 tablet (325 mg total) by mouth 2 (two) times a day. Active escitalopram 10 MG tablet Take 1 tablet (10 mg total) by mouth daily. Active hydrocodone-acetami nophen 10-325 MG tablet Take 1 tablet by mouth every 8 (eight) hours as needed for Pain. Active ondansetron 4 MG disintegrating tablet Take 1 tablet (4 mg total) by mouth every 8 (eight) hours as needed for Nausea. Active methylPREDNISolone, JUNIOR, (MEDROL DOSEPAK) 4 MG tablet 6 TABLETS ON DAY ONE, 5 TABLETS DAY TWO, 4 TABLETS DAY THREE, 3 TABLETS DAY FOUR, 2 TABLETS DAY FIVE, AND 1 TABLET DAY SIX 1 each 3 Active Active Problems No known active problems Encounters Date Type Department Care Team Description 07/05/2024 9:04 AM SCENERY BUILDER - 07/05/2024 11:59 PM SCENERY BUILDER Hospital Encounter [facility] [address] [place] [address] Parker Cedillo MD Discharge Disposition: Home or Self Care (Routine Discharge) 07/05/2024 Orders Only [facility] [address] [place] [address] Parker Cedillo MD 07/05/2024 Travel from Last 3 Months Immunizations Name Administration Dates Next Due MODERNA COVID-19 (12+) MRNA, LNP-S, PF, 100 MCG/ 0.5 ML DOSE 08/11/2020,07/14/2020 Family History Medical History Relation Comments Cancer Father Diabetes Paternal Grandmother Hypertension Paternal Grandmother Cancer Paternal Uncle Relation Status Comments Father lung Paternal Grandmother Paternal Uncle lung Social History Tobacco Use Types Packs/Day Years Used Date Smoking Tobacco: Former Smokeless Tobacco: Never Alcohol Use Standard Drinks/Week Comments No 0 (1 standard drink = 0.6 oz pur e alcohol) AUDIT-C Answer Date Recorded Frequency of Alcohol Consumption Never 11/25/2018 Average Number of Drinks Not on file 019 Frequency of Binge Drinking Not on file 11/07 Sex and Gender Information Value Date Recorded Sex Assigned at Male 07/05/2024 9:02 AM SCENERY BUILDER Legal Sex Male 3:51 PM CDT Gender Identity Not on file Sexual Orientation Not on file Last Filed Vital Signs Vital Sign Reading Time Taken Comments Blood Pressure 109/81 10/05/2023 7:26 PM CDT Pulse 89 10/05/2023 7:26 PM CDT Temperature 36.7 C (98.1 F) 10/05/2023 7:26 PM CDT Respiratory Rate 14 10/05/2023 7:26 PM CDT Oxygen Saturation 96% 10/05/2023 7:26 PM CDT Inhaled Oxygen Concentration - - Weight 133.8 kg (295 lb) 10/05/2023 7:26 PM CDT Height 180.3 cm (5' 11 ) 10/05/2023 7:26 PM CDT Body Mass Index 41.14 10/05/2023 7:26 PM CDT Plan of Treatment Health Maintenance Due Date Last Done Comments Colorectal Cancer Screening Colonoscopy (10 Years) 1962 Kidney Health Evaluation 1962 Annual Physical 1965 Pneumococcal Vaccine: Pediatrics (0 to 5 Years) and At-Risk Patients (6 to 64 Years) (1 of 2 - PCV) 1968 Diabetes: Retinopathy Eye Exam 1980 DTaP, Tdap and Td Vaccines (1 - Tdap) 1981 Zoster Vaccines (1 of 2) 2012 RSV Immunization or 60+ Years (1 - Risk 60-74 years 1-dose series) 2022 COVID-19 Vaccine (3 - season) 2024 08/11/2020, 07/14/2020 Influenza Adult (#1) 2024 03/24/2018, 03/23/2014, 04/14/2013 Hemoglobin A1C 01/02/2025 07/05/2024, 12/07, 06/13/2023, Additional history exists Lipid Panel 07/05/2025 07/05/2024, 12/07, 06/13/2023, Additional history exists Hepatitis C Completed 07/29/2020 Meningococcal B Vaccine Aged Out No l onger eligible based on patient's age to complete this topic Meningococcal Vaccine Aged Out No elizabeth pao eligible based on patient's age to complete this topic RSV Immunizations Under 20 Months Aged Out No longer eligible based on patient's age to complete this topic Procedures Procedure Name Priority Date/Time Associated Diagnosis Comments COMPREHENSIVE METABOLIC PANEL Routine 07/05/2024 9:15 AM SCENERY BUILDER Elevated PSA Malignant neoplasm of prostate (CMS/HCC HHS/HCC) Restless leg syndrome Acute unilateral obstructive uropathy Obesity Diabetes mellitus (CMS/HCC HHS/HCC) Vitamin D deficiency VITAMIN B-12 Routine 07/05/2024 9:15 AM SCENERY BUILDER Elevated PSA Malignant neoplasm of prostate (CMS/HCC HHS/HCC) Restless leg syndrome Acute unilateral obstructive uropathy Obesity Diabetes mellitus (CMS/HCC HHS/HCC) Vitamin D deficiency LIPID PANEL Routine 07/05/2024 9:15 AM SCENERY BUILDER Elevated PSA Malignant neoplasm of prostate (CMS/HCC HHS/HCC) Restless leg syndrome Acute unilateral obstructive uropathy Obesity Diabetes mellitus (CMS/HCC HHS/HCC) Vitamin D deficiency CBC W/DIFF AUTOMATED Routine 07/05/2024 9:15 AM SCENERY BUILDER Elevated PSA Malignant neoplasm of prostate (CMS/HCC HHS/HCC) Restless leg syndrome Acute unilateral obstructive uropathy Obesity Diabetes mellitus (CMS/HCC HHS/HCC) Vitamin D deficiency IRON SAT PANEL (IRON,IBC,%SAT) Routine 07/05/2024 9:15 AM SCENERY BUILDER Elevated PSA Malignant neoplasm of prostate (CMS/HCC HHS/HCC) Restless leg syndrome Acute unilateral obstructive uropathy Obesity Diabetes mellitus (CMS/HCC HHS/HCC) Vitamin D deficiency VITAMIN D, 25 OH Routine 07/05/2024 9:15 AM SCENERY BUILDER Elevated PSA Malignant neoplasm of prostate (CMS/HCC HHS/HCC) Restless leg syndrome Acute unilateral obstructive uropathy Obesity Diabetes mellitus (CMS/HCC HHS/HCC) Vitamin D deficiency HEMOGLOBIN, GLYCOSYLATED Routine 07/05/2024 9:15 AM SCENERY BUILDER Elevated PSA Malignant neoplasm of prostate (CMS/HCC HHS/HCC) Restless leg syndrome Acute unilateral obstructive uropathy Obesity Diabetes mellitus (CMS/HCC HHS/HCC) Vitamin D deficiency from Last 3 Months Results * (ABNORMAL) HEMOGLOBIN, GLYCOSYLATED (07/05/2024 9:15 AM SCENERY BUILDER) HGB A1C 5.7(H) <5.7 % 07/05/2024 2:58 PM SCENERY BUILDER [facility] Comment: ADA GUIDELINES 2010 5.7 TO 6.4% INCREASED RISK OF DIABETES > OR = 6.5% CONSISTENT WITH DIABETES ESTIMATED AVG GLUCOSE 117 mg/dL 07/05/2024 2:58 PM SCENERY BUILDER [facility] 07/05/2024 9:15 AM SCENERY BUILDER us Parker Cedillo MD LABORATORY Final Result Performing Organization Address City/[facility]/ZIP Co de Phone Number [facility] [address] [place] [address], [place] [phone] * IRON SAT PANEL (IRON,IBC,%SAT) (07/05/2024 9:15 AM SCENERY BUILDER) IRON 78 65.0 - 175.0 MCG/DL 07/05/2024 2:30 PM SCENERY BUILDER [facility] IRON BINDING CAPACITY 379 250 - 450 MCG/DL 07/05/2024 2:30 PM SCENERY BUILDER [facility] IRON SATURATION 21 20 - 55 % 2:30 PM SCENERY BUILDER [facility] 07/05/2024 9:15 AM SCENERY BUILDER us Parker Cedillo MD LABORATORY Final Result Performing Organization Address City/[facility]/ZIP Co de Phone Number [facility] [address] [place] [address], [place] [phone] * VITAMIN B-12 (07/05/2024 9:15 AM SCENERY BUILDER) Pathologist [facility] VITAMIN B12 S/P/B 314 254 - 1,320 PG/ML 07/05/2024 2:54 PM SCENERY BUILDER [facility] 07/05/2024 9:15 AM SCENERY BUILDER us Parker Cedillo MD LABORATORY Final Result [facility] [address] [place] [address], [place] [phone] * (ABNORMAL) COMPREHENSIVE METABOLIC PANEL (07/05/2024 9:15 AM SCENERY BUILDER) GLUCOSE 90 70 - 99 MG/DL 07/05/2024 9:50 AM [facility] BUN 33(H) 7 - 18 MG/DL 07/05/2024 9:50 AM [facility] CREATININE S/P/B 1.09 0.50 - 1.20 MG/DL 07/05/2024 9:50 AM [facility] SODIUM S/P/B 145 136 - 145 MMOL/L 07/05/2024 9:50 AM [facility] POTASSIUM S/P/B 5.2(H) 3.5 - 5.1 MMOL/L 07/05/2024 9:50 AM [facility] CHLORIDE S/P/B 106 100 - 108 MMOL/L 07/05/2024 9:50 AM [facility] CO2 31.3 21.0 - 32.0 MMOL/L 07/05/2024 9:50 AM [facility] CALCIUM S/P/B 9.0 8.5 - 10.1 MG/DL 07/05/2024 9:50 AM [facility] BILIRUBIN TOTAL S/P/B 0.3 0.2 - 1.2 MG/DL 07/05/2024 9:50 AM [facility] Comment: THIS ASSAY IS NOT RECOMMENDED FOR PATIENTS UNDERGOING TREATMENT WITH ELTROMBOPAG DUE TO THE POTENTIAL FOR FALSELY ELEVATED RESULTS. TOTAL PROTEIN S/P/B 7.4 6.4 - 8.2 G/DL 07/05/2024 9:50 AM [facility] ALBUMIN S/P/B 3.5 3.4 - 5.0 G/DL 07/05/2024 9:50 AM [facility] AST 22 15 - 37 U/L 07/05/2024 9:50 AM [facility] ALT 19 16 - 60 U/L 07/05/2024 9:50 AM [facility] ALKALINE PHOSPHATASE S/P/B 75 50 - 136 U/L 07/05/2024 9:50 AM [facility] ANION GAP 7.7 5.0 - 15.0 MMOL/L 07/05/2024 9:50 AM [facility] BUN CREATININE RATIO 30.3(H) 6 - 26 07/05/2024 9:50 AM [facility] A/G RATIO 0.9(L) 1.0 - 2.5 RATIO 07/05/2024 9:50 AM [facility] GFR ESTIMATE 77(L) >90 ML/MIN/1.7 3 M2 07/05/2024 9:50 AM [facility] Comment: NOTE: eGFR is not calculated for patients <18 years of age. This is an estimated GFR calculation using the new CKD EPI creatinine equation without race and so does not require a correction factor for race. This estimated GFR should not be used for calculating drug doses. 07/05/2024 9:15 AM SCENERY BUILDER us Parker Cedillo MD LABORATORY Final Result [facility] [address] [place] [address], * LIPID PANEL (07/05/2024 9:15 AM [facility]) CHOLESTEROL 153 <200 MG/DL 07/05/2024 2:54 PM [facility] TRIGLYCERIDES 134 <150 MG/DL 07/05/2024 2:54 PM [facility] HDL 46 >40.0 MG/DL 07/05/2024 2:54 PM [facility] LDL (CALCULATED) 80 <100 MG/DL 07/05/19 2:54 PM [facility] NON HDL CHOLESTEROL 107 <130 MG/DL 07/05 2:54 PM [facility] CHOL/HDL RATIO 3.3 0.0 - 4.5 07/05/2024 2:54 PM [facility] VLDL CALCULATION 27 5 - 55 MG/DL 07/05/2024 2:54 PM SCENERY BUILDER [facility] LIPID INTERPRETATION 07/05/2024 2:54 PM [facility] Comment: [facility] REPORT RECOMMENDATIONS: ADULT CHILD LOW RISK: CHOLESTEROL <200 <170 TRIGLYCERIDE <150 --- HDL >=60 --- LDL <100 <110 BORDERLINE: CHOLESTEROL 200-239 170-199 TRIGLYCERIDE 150-199 --- HDL 40-59 --- LDL 100-159 110-129 HIGH RISK: CHOLESTEROL >=240 >=200 TRIGLYCERIDE >=200 --- HDL <40 --- LDL >=160 >=130 07/05/2024 9:15 AM SCENERY BUILDER us Parker Cedillo MD LABORATORY Final Result [facility] [address] [place] [address], * (ABNORMAL) CBC W/DIFF AUTOMATED (07/05/2024 9:15 AM SCENERY BUILDER) WBC 3.26(L) 4.50 - 11.00 x10'3/uL 07/05/2024 9:22 AM [facility] RBC 3.65(L) 4.50 - 5.90 x10'6/uL 07/05/2024 9:22 AM [facility] HGB 10.6(L) 14.0 - 18.0 G/DL 07/05/2024 9:22 AM [facility] HCT 34.1(L) 43.0 - 54.0 % 07/05/2024 9:22 AM [facility] MCV 93.4 80.0 - 100.0 FL 07/05/2024 9:22 AM [facility] MCH 29.0 26.0 - 34.0 PG 07/05/2024 9:22 AM [facility] MCHC 31.1 31.0 - 37.0 G/DL 07/05/2024 9:22 AM [facility] RDW 13.3 11.6 - 14.8 % 07/05/2024 9:22 AM [facility] PLT 295 130 - 400 x10'3/uL 07/05/2024 9:22 AM [facility] MPV 8.9 7.0 - 12.0 FL 07/05/2024 9:22 AM [facility] CBC COMMENT AUTOMATED RBC MORPHOLOGY AND PLATELET EVALUATION NORMAL 07/05/2024 9:22 AM [facility] NEUTROPHILS % 66.5 40.0 - 74.0 % 07/05/2024 9:22 AM [facility] LYMPHOCYTES % 20.9 14.0 - 46.0 % 07/05/2024 9:22 AM [facility] MONOCYTES % 9.2 4.0 - 13.0 % 07/05/2024 9:22 AM [facility] EOSINOPHILS 2.5 0.0 - 7.0 % 07/05/2024 9:22 AM [facility] BASOPHILS 0.6 0.0 - 3.0 % 07/05/2024 9:22 AM [facility] IMMATURE GRANS % 0.3 0.0 - 0.43 % 07/05/2024 9:22 AM [facility] NRBC % 0.0 % 07/05/2024 9:22 AM [facility] ABS. NEUTROPHILS TOTAL 2.17 1.69 - 7.81 x10'3/uL 07/05/2024 9:22 AM [facility] ABS. LYMPHOCYTES 0.68 0.21 - 5.42 x10'3/uL 07/05/2024 9:22 AM [facility] ABS. MONOCYTES 0.30 0.04 - 1.37 x10'3/uL 07/05/2024 9:22 AM SCENERY BUILDER [facility] ABS. EOSINOPHILS 0.08 0.00 - 0.68 x10'3/uL 07/05/2024 9:22 AM SCENERY BUILDER [facility] ABS. BASOPHILS 0.02 0.00 - 0.08 x10'3/uL 07/05/2024 9:22 AM SCENERY BUILDER [facility] ABS. IMMATURE GRANULOCYTES 0.01 0.00 - 0.06 x10'3/uL 07/05/2024 9:22 AM SCENERY BUILDER [facility] ABS. NUCLEATED RBC'S 0.00 0.00 - 0.01 x10'3/uL 07/05/2024 9:22 AM SCENERY BUILDER [facility] 07/05/2024 9:15 AM SCENERY BUILDER Parker Cedillo MD LABORATORY Final Result Performing Organization Address City/[facility]/ZIP Co de Phone Number [facility] [address] [place] [address], * VITAMIN D, 25 OH (07/05/2024 9:15 AM SCENERY BUILDER) VITAMIN D 25 HYDROXY S/P/B 64 30 - 100 NG/ML 07/05/2024 2:51 PM SCENERY BUILDER [facility] Comment: INTERPRETATION DEFICIENT <20 INSUFFICIENT 20-29 SUFFICIENT 30-100 07/05/2024 9:15 AM SCENERY BUILDER Parker Cedillo MD LABORATORY Final Result [facility] [address] [place] [address], [place] [phone] from Last [address] [place] [address] Care Teams Terminal System Operator Relationship Specialty Start Date End Date Parker Cedillo MD [address] [place] [id number] PCP - General FAMILY PRACTICE 11/28/22
--- OUTSIDE RECORDS SUMMARY | 2024-07-19 12:55 | XMS_ITS | Encounter Summary ---
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
--- OUTSIDE RECORDS SUMMARY | 2024-07-19 12:55 | XMS_ITS | Encounter Summary ---
Author Organization [facility] Address [address] [place] [address] Care Team Providers Care Mate Fourth Name Role Phone Parker Cedillo MD Primary Care Provider [phone] Encounter Details Date Type Department Care Team (Late st Contact Info) Description 02/11/2024 [employer] Message Enc [facility] [place] [facility] Provider Action Needed Social History Tobacco Use [...] Sex Assigned at Male 07/05/2024 9:02 AM STUMP BLOWER Legal Sex Male 3:51 PM CDT Gender Identity Not on file Sexual Orientation Not on file documented as of this encounter Plan of Treatment Not on file documented as of this encounter Visit Diagnoses Not on filedocumented in this encounter Care Teams Mate Fourth Relationship Specialty Start Date End Date Parker Cedillo MD [address] [place] [phone] PCP - General FAMILY PRACTICE 11/28/22 documented as of this encounter
--- OUTSIDE RECORDS SUMMARY | 2024-07-19 12:55 | XMS_ITS | Encounter Summary ---
Author Organization [facility] Address [facility] access hospital[address] [place] [address] Care Team Providers Care Voice Data Communications Engineer Name Role Phone Vinny Padilla DO Primary Care Provider [phone] Leonard Mcnally MD Primary Care Provider [phone] Parker Cedillo MD Primary Care Provider [phone] Encounter Details Date Type Department Care Team (Late st Contact Info) Description 03/21/2022 [employer] [facility] Patient Accounts [address] [place] [address] [facility] Provider Monthly Credit Card Payment Social History Tobacco Use Types Packs/Day Years [...] Sex Assigned at Male 07/05/2024 9:02 AM LICENSED [employer]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 Legal Sex Male 3:51 PM CDT Gender Identity Not on file Sexual Orientation Not on file documented as of this encounter Plan of Treatment Not on file documented as of this encounter Visit Diagnoses Not on filedocumented in this encounter Care Teams Voice Data Communications Engineer Relationship Specialty Start Date End Date Vinny Padilla DO [address] [facility] [address] PCP - General INTERNAL MEDICINE 11/25/18 07/08/22 Leonard Mcnally MD [address] [id number] PCP - General INTERNAL MEDICINE 07/09/22 11/27/22 Parker Cedillo MD [address] [place] [id number] PCP - General FAMILY PRACTICE 11/28/22 documented as of this encounter
--- OUTSIDE RECORDS SUMMARY | 2024-07-19 12:55 | XMS_ITS | Referral Summary ---
Author Organization [facility] Address [address] [place] [address] Care Team Providers Care Ed Transporter Name Role Phone Sandeep Ortiz MD Unavailable [phone] Armani Crooks MD Primary Care Provider [phone] Source Comments [facility],non-owned Affiliates and Associated Physician Practices is amultiple site organization consisting of ambulatory clinics and hospital sitesin [place], [place], [place] and [place]. This disclosure is being madepursuant to the Care Everywhere program and may not contain all information available regarding this patient. Last updated 18.[facility] Allergies Active Allergy Reactions Criticality [...] TRIVALENT; 6MO+) (IIV3) 04/14/2013 INFLUENZA VACCINE 03/23/2014 Social History Tobacco Use Types Packs/Day Years [...] Comments Blood Pressure 162/95 08/01/2020 8:56 AM WAREHOUSE CONSULTANT Pulse 70 08/01/2020 8:56 AM WAREHOUSE CONSULTANT Temperature 36.3 C (97.3 F) 08/01/2020 8:56 AM WAREHOUSE CONSULTANT Respiratory Rate 18 08/01/2020 8:56 AM WAREHOUSE CONSULTANT Oxygen Saturation 98% 08/01/2020 8:56 AM WAREHOUSE CONSULTANT Inhaled Oxygen Concentration - - Weight 145.2 kg (320 lb) 07/29/2020 2:29 AM WAREHOUSE CONSULTANT Height 180.3 cm (5' 11 ) 07/29/2020 2:29 AM WAREHOUSE CONSULTANT Body Mass Index 44.63 07/29/2020 2:29 AM WAREHOUSE CONSULTANT Functional Status Functional Status Response Date of Assess ment Is person deaf or have serious hearing difficult y? No 07/29/2020 Is person blind or have serious difficulty seein g? No 07/29/2020 Does person have serious dif ficulty walking/climbing stairs? No 07/29/2020 Does person have difficulty dressing/bathing? No 07/29/2020 Does person have difficulty doing errands alone? No 07/29/2020 Cognitive Status Response Date of Assessm ent Does person have difficulty concentrating/remembering/making decisions? No 07/29/2020 Plan of Treatment Not on file Goals Goal Patient Goal Type Associated Problems Recent Progress Patient-Stated? Author Blood Pressure < 140/90 Blood Pressure 162/95(2020 8:56 AM WAREHOUSE CONSULTANT) No Vale [facility] Procedures Procedure Name Priority Date/Time Associated Diagnosis Comments RENAL FUNCTION PANEL AM Draw 08/01/2020 4:02 AM WAREHOUSE CONSULTANT HEPATITIS SCREEN ACUTE STAT 07/29/2020 4:51 PM WAREHOUSE CONSULTANT LIPID PROFILE Routine 11/11/2013 9:21 AM CDT Mixed hyperlipidemia from Last 3 Months or Most Recently Relevant to Health Maintenance Results * RENAL FUNCTION PANEL (08/01/2020 4:02 AM WAREHOUSE CONSULTANT) [facility] Glucose 96 70 - 105 mg/dL 08/01/2020 4:42 AM WAREHOUSE CONSULTANT [facility] Sodium 140 136 - 145 mmol/L 08/01/2020 4:42 AM WAREHOUSE CONSULTANT [facility] Potassium 3.6 3.5 - 5.1 mmol/L 08/01/2020 4:42 AM WAREHOUSE CONSULTANT [facility] Chloride 105 98 - 107 mmol/L 08/01/2020 4:42 AM WAREHOUSE CONSULTANT [facility] CO2 24 23 - 31 mmol/L 08/01/2020 4:42 AM [facility] Calcium 9.2 8.4 - 10.4 mg/dL 08/01/2020 4:42 AM [facility] Anion Gap 11 8 - 18 mmol/L 08/01/2020 4:42 AM [facility] Comment:Attention clinician: Reference Range change. BUN 25 8.4 - 25.7 mg/dL 08/01/2020 4:42 AM WAREHOUSE CONSULTANT [facility] Creatinine 0.89 0.72 - 1.25 mg/dL 08/01/2020 4:42 AM [facility] Albumin 3.7 3.5 - 5.2 gm/dL 08/01/2020 4:42 AM [facility] Phosphorus 3.5 2.3 - 4.7 mg/dL 08/01/2020 4:42 AM [facility] Comment:Attention clinician: Reference Range change. eGFR by MDRD >60 >60 mL/min/1.7 3m2 08/01/2020 4:42 AM [facility] eGFR by MDRD >60 >60 mL/min/1.7 3m2 08/01/2020 4:42 AM [facility] Blood BLOOD SPECIMEN / Unknown Venipuncture / Unknown 08/01/2020 4:02 AM WAREHOUSE CONSULTANT 08/01/2020 4:18 AM WAREHOUSE CONSULTANT Rosi Tuttle MD LAB - CHEMISTRY [facility] [address] [place] [address] * HEPATITIS SCREEN ACUTE (07/29/2020 4:51 PM WAREHOUSE CONSULTANT) HAV Antibody IgM Non Reactive Non Reactive 07/29/2020 5:51 PM WAREHOUSE CONSULTANT [facility] HBsAg Non Reactive Non Reactive 07/29/2020 5:51 PM WAREHOUSE CONSULTANT [facility] HBc Antibody IgM Non Reactive Non Reactive 07/29/2020 5:51 PM WAREHOUSE CONSULTANT [facility] HCV Antibody Screen Non Reactive Non Reactive 07/29/2020 5:51 PM WAREHOUSE CONSULTANT [facility] Blood BLOOD SPECIMEN / Unknown Venipuncture / Unknown 07/29/2020 4:51 PM WAREHOUSE CONSULTANT 07/29/2020 5:01 PM WAREHOUSE CONSULTANT Narrative [facility] - 07/29/2020 5:51 PM WAREHOUSE CONSULTANT Non Reactive - Antibodies to Hepatitis C virus (HCV) were not detected, result does not exclude early acute HCV infection. Rosi Tuttle MD LAB - CHEMISTRY [facility] [address] [place] [id number] * (ABNORMAL) LIPID PROFILE (11/11/2013 9:21 AM [...] PM CDT Narrative Resulting Agency Comment [facility] [address] [facility] [phone] Sanaz Harrison MD LAB - CHEMISTRY [facility] INSURANCE BILL from Last 3 Months [...] 7:44 PM 02/02/2010 10:39 PM Care Teams Ed Transporter Relationship Specialty Start Date End Date Armani Crooks MD [address] [place] [address] PCP - General 04/20/22 Sandeep Ortiz MD Urology 10/18/14
== END 2024-07-19 12:46 | disposition home or self-care (01) ==
PROVIDERS: PCP Family Medicine; Visit Provider Family Medicine
DX: R10.31 Right lower quadrant pain (principal)
CPT/HCPCS: 74018

== ENCOUNTER 2024-07-19 14:23 | Outpatient (CLI) | payer MEDICARE, SELFPAY ==
--- NOTE | ~2024-07-19 | CT_ITS ---
CT of the Abdomen and Pelvis: Indication: Abdominal pain Technique: 2.5 mm axial scans were obtained through the abdomen and pelvis following intravenous adm inistration of 100 cc of Omnipaque 350. Dose reduction technique was used on this scan by utilizing a utomated exposure control and iterative reconstruction technique. The dose-length product (DLP) was 1 464.90 mGy-cm. COMPARISON: 02/06/2022 Findings: Scans through the lung bases are unremarkable. There is diffuse hepatic steatosis. Gallbladder absent. The spleen, pancreas, adrenals and kidneys ar e within normal limits. No evidence of aortic aneurysm. No lymphadenopathy. No bowel obstruction or bowel wall thickening. There is left-sided spigelian hernia containing a foca l loop of the sigmoid colon. Focal umbilical hernia present, containing mesenteric fat and focal smal l bowel loop. Images through the pelvis were performed. Urinary bladder unremarkable. No pelvic mass seen. Status p ost hysterectomy. No ascites. Impression: No acute abnormality evident. Left-sided spigelian hernia containing a focal portion of the sigmoid colon. Focal umbilical hernia containing focal small bowel. Diffuse hepatic steatosis. Reviewed, dictated and finalized at location . TABLE SCULLION Impression: No acute abnormality evident. Left-sided spigelian hernia containing a focal portion of the sigmoid colon. Focal umbilical hernia containing focal small bowel. Diffuse hepatic steatosis.
--- OUTSIDE RECORDS SUMMARY | 2024-07-19 14:42 | XMS_ITS | Encounter Summary ---
Author Organization [facility] Address [address] [place] [address] Care Team Providers Care Iphone Developer Name Role Phone Parker Cedillo MD Primary Care Provider [phone] Encounter Details Date Type Department Care Team (Late st Contact Info) Description 08/13/2023 [employer] Message Enc [facility] [place] 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
--- OUTSIDE RECORDS SUMMARY | 2024-07-19 14:42 | XMS_ITS | Encounter Summary ---
Author Organization [facility] Address [facility] [place] [address] Care Team Providers Care Proposal Engineer Name Role Phone Vinny Padilla DO Primary Care Provider [phone] Leonard Mcnally MD Primary Care Provider [phone] Parker Cedillo MD Primary Care Provider [phone] Encounter Details Date Type Department Care Team (Late st Contact Info) Description 03/21/2022 [employer] [facility] Patient Accounts [address] [place] [address] [facility] Provider Monthly Credit Card Payment Social [...] Sex Assigned at Male 07/05/2024 9:02 AM 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 Legal Sex Male 3:51 PM CDT Gender Identity Not on file Sexual Orientation Not on file documented as of this encounter Plan of Treatment Not on file documented as of this encounter Visit Diagnoses Not on filedocumented in this encounter Care Teams Proposal Engineer Relationship Specialty Start Date End Date Vinny Padilla DO [facility] [address] [id number] PCP - General INTERNAL MEDICINE 11/25/18 07/08/22 Leonard Mcnally MD [address] [phone] PCP - General INTERNAL MEDICINE 07/09/22 11/27/22 Parker Cedillo MD [address] [place] [phone] PCP - General FAMILY PRACTICE 11/28/22 documented as of this encounter
--- OUTSIDE RECORDS SUMMARY | 2024-07-19 14:42 | XMS_ITS | Encounter Summary ---
Author Organization [facility] Address [address] [place] [address] Care Team Providers Care Street Openings Inspector Name Role Phone Parker Cedillo MD Primary Care Provider [phone] Encounter Details Date Type Department Care Team (Late st Contact Info) Description 02/11/2024 [employer] Message Enc [facility] [place] [facility] Provider Action Needed Social History [...] Sex Assigned at Male 07/05/2024 9:02 AM LABORATORY COORDINATOR Legal Sex Male 3:51 PM CDT Gender Identity Not on file Sexual Orientation Not on file documented as of this encounter Plan of Treatment Not on file documented as of this encounter Visit Diagnoses Not on filedocumented in this encounter Care Teams Street Openings Inspector Relationship Specialty Start Date End Date Parker Cedillo MD [address] [place] [id number] PCP - General FAMILY PRACTICE 11/28/22 documented as of this encounter
--- OUTSIDE RECORDS SUMMARY | 2024-07-19 14:42 | XMS_ITS | Clinical Summary ---
Author Organization [facility] Address [facility]ly [facility] [place] [address] Care Team Providers Care Jewel Inserter Name Role Phone Parker Cedillo MD Primary Care Provider [phone] Allergies Active Allergy Reactions Criticality Noted Date [...] Department Care Team Description 07/05/2024 9:04 AM VENETIAN BLIND ASSEMBLER - 07/05/2024 11:59 PM VENETIAN BLIND ASSEMBLER Hospital Encounter [facility] [address] [place] [address] Parker Cedillo MD Discharge Disposition: Home or Self Care (Routine Discharge) 07/05/2024 Orders Only [facility] [address] [place] [address] Parker Cedillo MD 07/05/2024 Travel from Last [...] Sex Assigned at Male 07/05/2024 9:02 AM VENETIAN BLIND ASSEMBLER Legal Sex Male 3:51 PM CDT Gender [...] COMPREHENSIVE METABOLIC PANEL Routine 07/05/2024 9:15 AM VENETIAN BLIND ASSEMBLER Elevated PSA Malignant neoplasm of prostate (CMS/HCC HHS/HCC) Restless leg syndrome Acute unilateral obstructive uropathy Obesity Diabetes mellitus (CMS/HCC HHS/HCC) Vitamin D deficiency VITAMIN B-12 Routine 07/05/2024 9:15 AM VENETIAN BLIND ASSEMBLER Elevated PSA Malignant neoplasm of prostate (CMS/HCC HHS/HCC) Restless leg syndrome Acute unilateral obstructive uropathy Obesity Diabetes mellitus (CMS/HCC HHS/HCC) Vitamin D deficiency LIPID PANEL Routine 07/05/2024 9:15 AM VENETIAN BLIND ASSEMBLER Elevated PSA Malignant neoplasm of prostate (CMS/HCC HHS/HCC) Restless leg syndrome Acute unilateral obstructive uropathy Obesity Diabetes mellitus (CMS/HCC HHS/HCC) Vitamin D deficiency CBC W/DIFF AUTOMATED Routine 07/05/2024 9:15 AM VENETIAN BLIND ASSEMBLER Elevated PSA Malignant neoplasm of prostate (CMS/HCC HHS/HCC) Restless leg syndrome Acute unilateral obstructive uropathy Obesity Diabetes mellitus (CMS/HCC HHS/HCC) Vitamin D deficiency IRON SAT PANEL (IRON,IBC,%SAT) Routine 07/05/2024 9:15 AM VENETIAN BLIND ASSEMBLER Elevated PSA Malignant neoplasm of prostate (CMS/HCC HHS/HCC) Restless leg syndrome Acute unilateral obstructive uropathy Obesity Diabetes mellitus (CMS/HCC HHS/HCC) Vitamin D deficiency VITAMIN D, 25 OH Routine 07/05/2024 9:15 AM VENETIAN BLIND ASSEMBLER Elevated PSA Malignant neoplasm of prostate (CMS/HCC HHS/HCC) Restless leg syndrome Acute unilateral obstructive uropathy Obesity Diabetes mellitus (CMS/HCC HHS/HCC) Vitamin D deficiency HEMOGLOBIN, GLYCOSYLATED Routine 07/05/2024 9:15 AM VENETIAN BLIND ASSEMBLER Elevated PSA Malignant neoplasm of prostate (CMS/HCC HHS/HCC) Restless leg syndrome Acute unilateral obstructive uropathy Obesity Diabetes mellitus (CMS/HCC HHS/HCC) Vitamin D deficiency from Last 3 Months Results * (ABNORMAL) HEMOGLOBIN, GLYCOSYLATED (07/05/2024 9:15 AM VENETIAN BLIND ASSEMBLER) HGB A1C 5.7(H) <5.7 % 07/05/2024 2:58 PM VENETIAN BLIND ASSEMBLER [facility] Comment: ADA GUIDELINES 2010 5.7 TO 6.4% INCREASED RISK OF DIABETES > OR = 6.5% CONSISTENT WITH DIABETES ESTIMATED AVG GLUCOSE 117 mg/dL 07/05/2024 2:58 PM VENETIAN BLIND ASSEMBLER [facility] 07/05/2024 9:15 AM VENETIAN BLIND ASSEMBLER us Parker Cedillo MD LABORATORY Final Result Performing Organization Address City/[facility]/ZIP Co de Phone Number [facility] [address] [place] [address], [place] [phone] * IRON SAT PANEL (IRON,IBC,%SAT) (07/05/2024 9:15 AM VENETIAN BLIND ASSEMBLER) IRON 78 65.0 - 175.0 MCG/DL 07/05/2024 2:30 PM VENETIAN BLIND ASSEMBLER [facility] IRON BINDING CAPACITY 379 250 - 450 MCG/DL 07/05/2024 2:30 PM VENETIAN BLIND ASSEMBLER [facility] IRON SATURATION 21 20 - 55 % 2:30 PM VENETIAN BLIND ASSEMBLER [facility] 07/05/2024 9:15 AM VENETIAN BLIND ASSEMBLER us Parker Cedillo MD LABORATORY Final Result Performing Organization Address [facility]/ZIP Co de Phone Number [facility] [address] [place] [address], [place] [phone] * VITAMIN B-12 (07/05/2024 9:15 AM VENETIAN BLIND ASSEMBLER) Pathologist [facility] VITAMIN B12 S/P/B 314 254 - 1,320 PG/ML 07/05/2024 2:54 PM VENETIAN BLIND ASSEMBLER [facility] 07/05/2024 9:15 AM VENETIAN BLIND ASSEMBLER us Parker Cedillo MD LABORATORY Final Result [facility] [address] [place] [address], [place] [phone] * (ABNORMAL) COMPREHENSIVE METABOLIC PANEL (07/05/2024 9:15 AM VENETIAN BLIND ASSEMBLER) GLUCOSE 90 70 - 99 MG/DL 07/05/2024 9:50 AM [facility] BUN 33(H) 7 - 18 MG/DL 07/05/2024 9:50 AM [facility] CREATININE S/P/B 1.09 0.50 - 1.20 MG/DL 07/05/2024 9:50 AM [facility] SODIUM S/P/B 145 136 - 145 MMOL/L 07/05/2024 9:50 AM [facility] POTASSIUM S/P/B 5.2(H) 3.5 - 5.1 MMOL/L 07/05/2024 9:50 AM [facility] CHLORIDE S/P/B 106 100 - 108 MMOL/L 07/05/2024 9:50 AM [facility] CO2 31.3 21.0 - 32.0 MMOL/L 07/05/2024 9:50 AM [facility] CALCIUM S/P/B 9.0 8.5 - 10.1 MG/DL 07/05/2024 9:50 AM [facility] BILIRUBIN TOTAL S/P/B 0.3 0.2 - 1.2 MG/DL 07/05/2024 9:50 AM [facility] Comment: THIS ASSAY IS NOT RECOMMENDED FOR PATIENTS UNDERGOING TREATMENT WITH ELTROMBOPAG DUE TO THE POTENTIAL FOR FALSELY ELEVATED RESULTS. TOTAL PROTEIN S/P/B 7.4 6.4 - 8.2 G/DL 07/05/2024 9:50 AM [facility] ALBUMIN S/P/B 3.5 3.4 - 5.0 G/DL 07/05/2024 9:50 AM [facility] AST 22 15 - 37 U/L 07/05/2024 9:50 AM [facility] ALT 19 16 - 60 U/L 07/05/2024 9:50 AM [facility] ALKALINE PHOSPHATASE S/P/B 75 50 - 136 U/L 07/05/2024 9:50 AM [facility] ANION GAP 7.7 5.0 - 15.0 MMOL/L 07/05/2024 9:50 AM [facility] BUN CREATININE RATIO 30.3(H) 6 - 26 07/05/2024 9:50 AM [facility] A/G RATIO 0.9(L) 1.0 - 2.5 RATIO 07/05/2024 9:50 AM [facility] GFR ESTIMATE 77(L) >90 ML/MIN/1.7 3 M2 07/05/2024 9:50 AM [facility] Comment: NOTE: eGFR is not calculated for patients <18 years of age. This is an estimated GFR calculation using the new CKD EPI creatinine equation without race and so does not require a correction factor for race. This estimated GFR should not be used for calculating drug doses. 07/05/2024 9:15 AM VENETIAN BLIND ASSEMBLER us Parker Cedillo MD LABORATORY Final Result [facility] [address] [place] [address], * LIPID PANEL (07/05/2024 9:15 AM [facility]) CHOLESTEROL 153 <200 MG/DL 07/05/2024 2:54 PM [facility] TRIGLYCERIDES 134 <150 MG/DL 07/05/2024 2:54 PM [facility] HDL 46 >40.0 MG/DL 07/05/2024 2:54 PM [facility] LDL (CALCULATED) 80 <100 MG/DL 07/05/19 2:54 PM [facility] NON HDL CHOLESTEROL 107 <130 MG/DL 07/05 2:54 PM [facility] CHOL/HDL RATIO 3.3 0.0 - 4.5 07/05/2024 2:54 PM [facility] VLDL CALCULATION 27 5 - 55 MG/DL 07/05/2024 2:54 PM VENETIAN BLIND ASSEMBLER [facility] LIPID INTERPRETATION 07/05/2024 2:54 PM [facility] Comment: [facility] REPORT RECOMMENDATIONS: ADULT CHILD LOW RISK: CHOLESTEROL <200 <170 TRIGLYCERIDE <150 --- HDL >=60 --- LDL <100 <110 BORDERLINE: CHOLESTEROL 200-239 170-199 TRIGLYCERIDE 150-199 --- HDL 40-59 --- LDL 100-159 110-129 HIGH RISK: CHOLESTEROL >=240 >=200 TRIGLYCERIDE >=200 --- HDL <40 --- LDL >=160 >=130 07/05/2024 9:15 AM VENETIAN BLIND ASSEMBLER us Parker Cedillo MD LABORATORY Final Result [facility] [address] [place] [address], * (ABNORMAL) CBC W/DIFF AUTOMATED (07/05/2024 9:15 AM VENETIAN BLIND ASSEMBLER) WBC 3.26(L) 4.50 - 11.00 x10'3/uL 07/05/2024 9:22 AM [facility] RBC 3.65(L) 4.50 - 5.90 x10'6/uL 07/05/2024 9:22 AM [facility] HGB 10.6(L) 14.0 - 18.0 G/DL 07/05/2024 9:22 AM [facility] HCT 34.1(L) 43.0 - 54.0 % 07/05/2024 9:22 AM [facility] MCV 93.4 80.0 - 100.0 FL 07/05/2024 9:22 AM [facility] MCH 29.0 26.0 - 34.0 PG 07/05/2024 9:22 AM [facility] MCHC 31.1 31.0 - 37.0 G/DL 07/05/2024 9:22 AM [facility] RDW 13.3 11.6 - 14.8 % 07/05/2024 9:22 AM [facility] PLT 295 130 - 400 x10'3/uL 07/05/2024 9:22 AM [facility] MPV 8.9 7.0 - 12.0 FL 07/05/2024 9:22 AM [facility] CBC COMMENT AUTOMATED RBC MORPHOLOGY AND PLATELET EVALUATION NORMAL 07/05/2024 9:22 AM [facility] NEUTROPHILS % 66.5 40.0 - 74.0 % 07/05/2024 9:22 AM [facility] LYMPHOCYTES % 20.9 14.0 - 46.0 % 07/05/2024 9:22 AM [facility] MONOCYTES % 9.2 4.0 - 13.0 % 07/05/2024 9:22 AM [facility] EOSINOPHILS 2.5 0.0 - 7.0 % 07/05/2024 9:22 AM [facility] BASOPHILS 0.6 0.0 - 3.0 % 07/05/2024 9:22 AM [facility] IMMATURE GRANS % 0.3 0.0 - 0.43 % 07/05/2024 9:22 AM [facility] NRBC % 0.0 % 07/05/2024 9:22 AM [facility] ABS. NEUTROPHILS TOTAL 2.17 1.69 - 7.81 x10'3/uL 07/05/2024 9:22 AM [facility] ABS. LYMPHOCYTES 0.68 0.21 - 5.42 x10'3/uL 07/05/2024 9:22 AM [facility] ABS. MONOCYTES 0.30 0.04 - 1.37 x10'3/uL 07/05/2024 9:22 AM VENETIAN BLIND ASSEMBLER [facility] ABS. EOSINOPHILS 0.08 0.00 - 0.68 x10'3/uL 07/05/2024 9:22 AM VENETIAN BLIND ASSEMBLER [facility] ABS. BASOPHILS 0.02 0.00 - 0.08 x10'3/uL 07/05/2024 9:22 AM VENETIAN BLIND ASSEMBLER [facility] ABS. IMMATURE GRANULOCYTES 0.01 0.00 - 0.06 x10'3/uL 07/05/2024 9:22 AM VENETIAN BLIND ASSEMBLER [facility] ABS. NUCLEATED RBC'S 0.00 0.00 - 0.01 x10'3/uL 07/05/2024 9:22 AM VENETIAN BLIND ASSEMBLER [facility] 07/05/2024 9:15 AM VENETIAN BLIND ASSEMBLER Parker Cedillo MD LABORATORY Final Result Performing Organization Address City/[facility]/ZIP Co de Phone Number [facility] [address] [place] [address], * VITAMIN D, 25 [place] (07/05/2024 9:15 AM VENETIAN BLIND ASSEMBLER) VITAMIN D 25 HYDROXY S/P/B 64 30 - 100 NG/ML 07/05/2024 2:51 PM VENETIAN BLIND ASSEMBLER [facility] Comment: INTERPRETATION DEFICIENT <20 INSUFFICIENT 20-29 SUFFICIENT 30-100 07/05/2024 9:15 AM VENETIAN BLIND ASSEMBLER Parker Cedillo MD LABORATORY Final Result [facility] [address] [place] [address], [place] [phone] from Last [address] [place] [address] [address] Care Teams Jewel Inserter Relationship Specialty Start Date End Date Parker Cedillo MD [address] [place] [id number] PCP - General FAMILY PRACTICE 11/28/22
--- OUTSIDE RECORDS SUMMARY | 2024-07-19 14:43 | XMS_ITS | Patient Health Summary ---
Author Organization [facility] Address [address] [place] [address] Care Team Providers Care Compensation/Benefits Specialist Name Role Phone Sandeep Ortiz MD Unavailable [phone] Armani Crooks MD Primary Care Provider [phone] Note from [facility],non-owned Affiliates and Associated Physician Practices is amultiple site organization consisting of ambulatory clinics and hospital sitesin [place], [place], [place] and [place]. This disclosure is being madepursuant to the Care Everywhere program and may not contain all information available regarding this patient. Last updated 18.[facility] Allergies * Allopurinol(Other) Medications * Be aware [...] Comments Blood Pressure 162/95 08/01/2020 8:56 AM CHEMICAL BLENDER Pulse 70 08/01/2020 8:56 AM CHEMICAL BLENDER Temperature 36.3 C (97.3 F) 08/01/2020 8:56 AM CHEMICAL BLENDER Respiratory Rate 18 08/01/2020 8:56 AM CHEMICAL BLENDER Oxygen Saturation 98% 08/01/2020 8:56 AM CHEMICAL BLENDER Inhaled Oxygen Concentration - - Weight 145.2 kg (320 lb) 07/29/2020 2:29 AM CHEMICAL BLENDER Height 180.3 cm (5' 11 ) 07/29/2020 2:29 AM CHEMICAL BLENDER Body Mass Index 44.63 07/29/2020 2:29 AM CHEMICAL BLENDER Procedures * CARDIAC RHYTHM STRIP ORDER(Performed 08/03/2020) [...] CARDIAC RHYTHM STRIP ORDER (08/03/2020 12:04 AM CHEMICAL BLENDER) Narrative 08/03/2020 12:04 AM CHEMICAL BLENDER Ordered by an unspecified provider. Scanned Document CARDIAC SERVICES ORD ERABLES * (ABNORMAL) GLUCOSE - POINT OF CARE (08/01/2020 9:10 AM CHEMICAL BLENDER) Only the most recent of16 resultswithin the time period is included. Glucose WB/POC 149(H) 70 - 106 mg/dL 08/01/2020 12:30 PM CHEMICAL BLENDER [facility] Specimen Type Venous 08/01/2020 12:30 PM CHEMICAL BLENDER [facility] Blood BLOOD SPECIMEN / Unknown 08/01/2020 9:10 AM CHEMICAL BLENDER 08/01/2020 12:30 PM CHEMICAL BLENDER Reginald Cade MD LAB - POINT OF CARE ORDERABLES [facility] [address] [place] [address] * RENAL FUNCTION PANEL (08/01/2020 4:02 AM CHEMICAL BLENDER) Only the most recent of3 resultswithin the time period is included. Glucose 96 70 - 105 mg/dL 08/01/2020 4:42 AM [facility] Sodium 140 136 - 145 mmol/L 08/01/2020 4:42 AM [facility] Potassium 3.6 3.5 - 5.1 mmol/L 08/01/2020 4:42 AM [facility] Chloride 105 98 - 107 mmol/L 08/01/2020 4:42 AM [facility] CO2 24 23 - 31 mmol/L 08/01/2020 4:42 AM [facility] Calcium 9.2 8.4 - 10.4 mg/dL 08/01/2020 4:42 AM [facility] Anion Gap 11 8 - 18 mmol/L 08/01/2020 4:42 AM [facility] Comment:Attention clinician: Reference Range change. BUN 25 8.4 - 25.7 mg/dL 08/01/2020 4:42 AM [facility] Creatinine 0.89 0.72 - 1.25 mg/dL 08/01/2020 4:42 AM [facility] Albumin 3.7 3.5 - 5.2 gm/dL 08/01/2020 4:42 AM [facility] Phosphorus 3.5 2.3 - 4.7 mg/dL 08/01/2020 4:42 AM [facility] Comment:Attention clinician: Reference Range change. eGFR by MDRD >60 >60 mL/min/1.7 3m2 08/01/2020 4:42 AM [facility] eGFR by MDRD >60 >60 mL/min/1.7 3m2 08/01/2020 4:42 AM [facility] Blood BLOOD SPECIMEN / Unknown Venipuncture / Unknown 08/01/2020 4:02 AM CHEMICAL BLENDER 08/01/2020 4:18 AM CHEMICAL BLENDER Rosi Tuttle MD LAB - CHEMISTRY RENE VALENCIA [facility] Organization Address City/State/ZIP Co de Phone Number [facility] [address] [place] [address] * (ABNORMAL) CBC W AUTO DIFFERENTIAL (07/31/2020 4:55 AM CHEMICAL BLENDER) Only the most recent of3 resultswithin the time period is included. Pathologist [facility] WBC 7.5 4.4 - 10.7 x10E9/L 07/31/2020 5:35 AM [facility] WBC Corrected 07/31/2020 5:35 AM [facility] RBC 3.14(L) 3.80 - 5.40 x10E12/L 07/31/2020 5:35 AM [facility] Hemoglobin 9.2(L) 12.0 - 17.6 gm/dL 07/31/2020 5:35 AM [facility] Hematocrit 29.0(L) 35.2 - 51.7 % 07/31/2020 5:35 AM [facility] MCV 92.4 80.7 - 98.3 fl 07/31/2020 5:35 AM [facility] MCH 29.3 26.7 - 34.0 pg 07/31/2020 5:35 AM [facility] MCHC 31.7 30.8 - 35.9 gm/dL 07/31/2020 5:35 AM [facility] Platelet Count 278 153 - 416 x10E9/L 07/31/2020 5:35 AM [facility] RDW-CV 13.9 12.1 - 14.9 % 07/31/2020 5:35 AM [facility] MPV 9.4 9.4 - 12.9 fl 07/31/2020 5:35 AM [facility] Neutrophils % 71.6 44.0 - 73.0 % 07/31/2020 5:35 AM [facility] Lymphocytes % 14.3(L) 20.0 - 43.0 % 07/31/2020 5:35 AM [facility] Monocytes % 11.4 5.0 - 13.0 % 07/31/2020 5:35 AM [facility] Eosinophils % 2.1 0.0 - 6.0 % 07/31/2020 5:35 AM [facility] Basophils % 0.3 0.0 - 2.0 % 07/31/2020 5:35 AM [facility] Immature Granulocytes 0.3 0 - 1 % 07/31/2020 5:35 AM [facility] Neutrophil Absolute 5.34 2.01 - 7.14 x10E9/L 07/31/2020 5:35 AM [facility] Lymphocytes Absolute 1.07 1.07 - 3.94 x10E9/L 07/31/2020 5:35 AM [facility] Monocytes Absolute 0.85 0.26 - 1.07 x10E9/L 07/31/2020 5:35 AM [facility] Eosinophils Absolute 0.16 0 - 0.47 x10E9/L 07/31/2020 5:35 AM [facility] Basophils Absolute 0.02 0 - 0.08 x10E9/L 07/31/2020 5:35 AM [facility] Immature Granulocytes Absolute 0.02 0.00 - 0.06 x10E9/L 07/31/2020 5:35 AM [facility] nRBC Auto 0 /100 WBC 07/31/2020 5:35 AM [facility] Blood BLOOD SPECIMEN / Unknown Venipuncture / Unknown 07/31/2020 4:55 AM CHEMICAL BLENDER 07/31/2020 5:28 AM [facility] Florentin Cedillo DO LAB - HEMATOLOGY O RDERABLES [facility] [address] [place] [address] * (ABNORMAL) BASIC METABOLIC PANEL (CALCIUM TOTAL) (07/31/2020 4:55 AM [facility]) Only the most recent of3 resultswithin the time period is included. [facility] Glucose 96 70 - 105 mg/dL 07/31/2020 5:46 AM [facility] Sodium 141 136 - 145 mmol/L 07/31/2020 5:46 AM [facility] Potassium 3.8 3.5 - 5.1 mmol/L 07/31/2020 5:46 AM [facility] Chloride 104 98 - 107 mmol/L 07/31/2020 5:46 AM [facility] CO2 26 23 - 31 mmol/L 07/31/2020 5:46 AM [facility] Calcium 9.2 8.4 - 10.4 mg/dL 07/31/2020 5:46 AM [facility] Anion Gap 11 8 - 18 mmol/L 07/31/2020 5:46 AM [facility] Comment:Attention clinician: Reference Range change. BUN 32(H) 8.4 - 25.7 mg/dL 07/31/2020 5:46 AM [facility] Creatinine 0.97 0.72 - 1.25 mg/dL 07/31/2020 5:46 AM [facility] eGFR by MDRD >60 >60 mL/min/1.7 3m2 07/31/2020 5:46 AM [facility] eGFR by MDRD >60 >60 mL/min/1.7 3m2 07/31/2020 5:46 AM [facility] Blood BLOOD SPECIMEN / Unknown Venipuncture / Unknown 07/31/2020 4:55 AM CHEMICAL BLENDER 07/31/2020 5:28 AM CHEMICAL BLENDER Marline NUNEZ LAB - VIDEO GAMES STORYWRITER RY ORDERABLES Performing Organization Address [facility] Co de Phone Number [facility] [address] [place] [address] * PHOSPHORUS BLOOD (07/31/2020 4:55 AM CHEMICAL BLENDER) Only the most recent of2 resultswithin the time period is included. Phosphorus 2.3 2.3 - 4.7 mg/dL 07/31/2020 5:46 AM CHEMICAL BLENDER [facility] Blood BLOOD SPECIMEN / Unknown Venipuncture / Unknown 07/31/2020 4:55 AM CHEMICAL BLENDER 07/31/2020 5:28 AM CHEMICAL BLENDER Marline Dickinson APRN-KENDRA LAB - VIDEO GAMES STORYWRITER RY ORDERABLES Performing Organization Address City/State/[facility] Co de Phone Number [facility] [address] [place] [address] * COLLEEN PATH INTERP URINE (07/30/2020 10:49 PM CHEMICAL BLENDER) Case Report Pathologist Interpretation Report Case: [id number] Authorizing Provider: Rosi Tuttle MD Collected: 07/30/2020 10:49 PM Ordering Location: [address] [facility] Received: 08/01/2020 07:05 AM Pathologist: Rober Key MD Specimen: Urine Timed 08/01/2020 1:24 PM CHEMICAL BLENDER [facility] Interpretation COLLEEN Urine No Monoclonal protein identified. 08/01/2020 1:24 PM CHEMICAL BLENDER [facility] Pattern/Graph See attached scanned pattern or graph. 08/01/2020 1:24 PM CHEMICAL BLENDER [facility] Urine TIMED URINE SPECIMEN / Unknown Timed Urine Volume Measurement / Unknown 07/30/2020 10:49 PM CHEMICAL BLENDER 08/01/2020 7:05 AM CHEMICAL BLENDER Rosi Tuttle MD LAB - PATHOLOGY/CYTO LOGY ORDERABLES Performing Organization Address [facility] Co de Phone Number [facility] [address] [place] [address] * PROTEIN ELECTROPHORESIS PATH INTERP URINE (07/30/2020 10:49 PM CHEMICAL BLENDER) Case Report Pathologist Interpretation Report Case: [id number] Authorizing Provider: Rosi Tuttle MD Collected: 07/30/2020 10:49 PM Ordering Location: [address] [facility] Received: 08/03/2020 10:32 AM Pathologist: Rober Key MD Specimen: Urine Timed 08/04/2020 10:18 AM CHEMICAL BLENDER [facility] Interpretation PE Urine No Monoclonal protein identified. 08/04/2020 10:18 AM CHEMICAL BLENDER [facility] Pattern/Graph See attached scanned pattern or graph. 08/04/2020 10:18 AM CHEMICAL BLENDER [facility] Urine TIMED URINE SPECIMEN / Unknown Timed Urine Volume Measurement / Unknown 07/30/2020 10:49 PM CHEMICAL BLENDER 08/03/2020 10:32 AM CHEMICAL BLENDER Rosi Tuttle MD LAB - PATHOLOGY/CYTO LOGY ORDERABLES Performing Organization Address City/[facility]/ZIP Co de Phone Number [facility] [address] [place] [address] * COLLEEN URINE (07/30/2020 10:49 PM CHEMICAL BLENDER) Comment Path Review Pathologist has reviewed results. 08/01/2020 2:05 PM CHEMICAL BLENDER [facility] Performing Site Reported Performed at [facility], reported by [facility] 08/01/2020 2:05 PM CHEMICAL BLENDER [facility] Comment: Performed by: [facility] [address] [place] [id number] Resulted by: [address] [address] Comment See Report See Separate Pathology Report 08/01/2020 2:05 PM CHEMICAL BLENDER [facility] Urine URINE SPECIMEN COLLECTION, 24 HOURS / Unknown Timed Urine Volume Measurement / Unknown 07/30/2020 10:49 PM CHEMICAL BLENDER 07/30/2020 11:03 PM CHEMICAL BLENDER Narrative [facility] - 08/01/2020 2:05 PM CHEMICAL BLENDER PATHOLOGISTS INTERPRETIVE COMMENTS WILL BE PLACED ON SEPARATE REPORT. Rosi Tuttle MD LAB - URINE CHEMISTR Y ORDERABLES Performing Organization Address City/[facility]/ZIP Co de Phone Number [facility] [address] [place] [address] * (ABNORMAL) PROTEIN ELECTROPHORESIS URINE TIMED (07/30/2020 10:49 PM CHEMICAL BLENDER) Volume 24 Hour Urine 2,800 mL 08/05/2020 4:24 PM CHEMICAL BLENDER [facility] Collection Time Hours 24 hrs 08/05/2020 4:24 PM CHEMICAL BLENDER [facility] Protein Urine 15.2(H) <11.9 mg/dL 08/05/2020 4:24 PM [facility] Protein 24 Hour Urine 426 mg/24hr 08/05/2020 4:24 PM [facility] Albumin Urine 28.8 % 08/05/2020 4:24 PM [facility] Alpha-1 Globulin Urine 22.3 % 08/05/2020 4:24 PM [facility] Tmtnh-9-Eyqzmy in % Urine 19.1 % 08/05/2020 4:24 PM [facility] Beta-Globulin Urine 13.6 % 08/05/2020 4:24 PM [facility] Gamma Globulin % Urine 16.2 % 08/05/2020 4:24 PM [facility] Performing Site Reported Performed at [facility], reported by [facility] 08/05/2020 4:24 PM [facility] Comment: Performed by: [facility] [address] [place] [id number] Resulted by: [address] [address] Urine TIMED URINE SPECIMEN / Unknown Timed Urine Volume Measurement / Unknown 07/30/2020 10:49 PM CHEMICAL BLENDER 07/30/2020 11:05 PM CHEMICAL BLENDER Narrative [facility] - 08/05/2020 4:24 PM CHEMICAL BLENDER CONCENTRATED X100 Rosi Tuttle MD LAB - URINE CHEMISTR Y ORDERABLES [facility] [address] [place] [address] [facility] [address] [place] [address] * HEMOGLOBIN A1C (07/30/2020 3:49 AM CHEMICAL BLENDER) Only the most recent of2 resultswithin the time period is included. Hemoglobin A1c 5.3 4.2 - 5.6 % 07/30/2020 4:06 AM [facility] Estimated Average Glucose 105 mg/dL 07/30/2020 4:06 AM [facility] Blood BLOOD SPECIMEN / Unknown Venipuncture / Unknown 07/30/2020 3:49 AM CHEMICAL BLENDER 07/30/2020 3:54 AM CHEMICAL BLENDER Narrative [facility] - 07/30/2020 4:06 AM CHEMICAL BLENDER The following cutoff levels are recommended by [place] [employer]. A1c > 6.5% : considered [...] LAB - CHEMISTRY ORDERABLES Performing Organization Address City/State/[facility] Co de Phone Number [facility] [address] [place] [address] * MAGNESIUM BLOOD (07/30/2020 3:49 AM CHEMICAL BLENDER) Only the most recent of2 resultswithin the time period is included. [facility] Magnesium 2.2 1.6 - 2.6 mg/dL 07/30/2020 4:16 AM CHEMICAL BLENDER [facility] Blood BLOOD SPECIMEN / Unknown Venipuncture / Unknown 07/30/2020 3:49 AM CHEMICAL BLENDER 07/30/2020 3:54 AM CHEMICAL BLENDER Reginald Cade MD LAB - CHEMISTRY ORDERABLES [facility] [address] [place] [phone] * CRYOGLOBULIN SCREEN W/ REFLEX (07/30/2020 3:48 AM CHEMICAL BLENDER) Cryoglobulin Qualitative Comment None detected 08/04/2020 2:09 PM CHEMICAL BLENDER [facility] ([facility]) Comment: None Detected at 72 hours This test was developed and its performance characteristics determined by [facility]. It has not been cleared or approved by the Food and Drug Administration. Blood BLOOD SPECIMEN / Unknown Venipuncture / Unknown 07/30/2020 3:48 AM CHEMICAL BLENDER 07/30/2020 3:54 AM CHEMICAL BLENDER Narrative [facility] ([facility]) - 08/04/2020 2:09 PM CHEMICAL BLENDER Performed at: [address] [place] [id number] Burial Vault Setter: Jbe Hood PhD, Phone: [phone] Rosi Tuttle MD LAB - CHEMISTRY ORDE ANNIE [facility] ([facility]) [address] [place] [address] * HEPATITIS SCREEN ACUTE (07/29/2020 4:51 PM CHEMICAL BLENDER) HAV Antibody IgM Non Reactive Non Reactive 07/29/2020 5:51 PM CHEMICAL BLENDER [facility] HBsAg Non Reactive Non Reactive 07/29/2020 5:51 PM CHEMICAL BLENDER [facility] HBc Antibody IgM Non Reactive Non Reactive 07/29/2020 5:51 PM CHEMICAL BLENDER [facility] HCV Antibody Screen Non Reactive Non Reactive 07/29/2020 5:51 PM CHEMICAL BLENDER [facility] Blood BLOOD SPECIMEN / Unknown Venipuncture / Unknown 07/29/2020 4:51 PM CHEMICAL BLENDER 07/29/2020 5:01 PM CHEMICAL BLENDER Narrative [facility] - 07/29/2020 5:51 PM CHEMICAL BLENDER Non Reactive - Antibodies to Hepatitis C virus (HCV) were not detected, result does not exclude early acute HCV infection. Rosi Tuttle MD LAB - CHEMISTRY ORDE ANNIE Performing Organization Address City/[facility]/ZIP Co de Phone Number [facility] [address] [place] [address] * COLLEEN PATH INTERP BLOOD (07/29/2020 4:47 PM CHEMICAL BLENDER) Case Report Pathologist Interpretation Report Case: [id number] Authorizing Provider: Rosi Tuttle MD Collected: 07/29/2020 04:47 PM Ordering Location: [address] [facility] Received: 08/01/2020 07:05 AM Pathologist: Rober Key MD Specimen: Blood 08/01/2020 1:23 PM CHEMICAL BLENDER [facility] Interpretation COLLEEN No Monoclonal protein identified. 08/01/2020 1:23 PM CHEMICAL BLENDER [facility] Pattern/Graph See attached scanned pattern or graph. 08/01/2020 1:23 PM CHEMICAL BLENDER [facility] Blood BLOOD SPECIMEN / Unknown Venipuncture / Unknown 07/29/2020 4:47 PM CHEMICAL BLENDER 08/01/2020 7:05 AM CHEMICAL BLENDER Rosi Tuttle MD LAB - PATHOLOGY/CYTO LOGY ORDERABLES Performing Organization Address [facility] Co de Phone Number [facility] [address] [place] [address] * PROTEIN ELECTROPHORESIS PATH INTERP BLOOD (07/29/2020 4:47 PM CHEMICAL BLENDER) Case Report Pathologist Interpretation Report Case: [id number] Authorizing Provider: Rosi Tuttle MD Collected: 07/29/2020 04:47 PM Ordering Location: [address] [facility] Received: 07/31/2020 07:54 AM Pathologist: Rober Key MD Specimen: Blood 08/01/2020 9:33 AM CHEMICAL BLENDER [facility] Interpretation PE No Monoclonal protein identified. 08/01/2020 9:33 AM CHEMICAL BLENDER [facility] Blood BLOOD SPECIMEN / Unknown Venipuncture / Unknown 07/29/2020 4:47 PM CHEMICAL BLENDER 07/31/2020 7:54 AM CHEMICAL BLENDER Rosi Tuttle MD LAB - PATHOLOGY/CYTO LOGY ORDERABLES [facility] [address] [place] [address] * ANCA VASCULITIS PANEL (07/29/2020 4:47 PM CHEMICAL BLENDER) Anti-myeloperoxid ase (MPO) Antibody <9.0 0.0 - 9.0 U/mL 08/02/2020 4:10 PM CHEMICAL BLENDER [facility] ([facility]) Anti-proteinase 3 (ND-3) Abs <3.5 0.0 - 3.5 U/mL 08/02/2020 4:10 PM CHEMICAL BLENDER [facility] ([facility]) Cytoplasmic (C-ANCA) <1:20 Neg:<1:20 titer 08/02/2020 4:10 PM CHEMICAL BLENDER [facility] ([facility]) p-ANCA Titer <1:20 Neg:<1:20 titer 08/02/2020 4:10 PM CHEMICAL BLENDER [facility] ([facility]) Comment: The presence of positive fluorescence exhibiting P-ANCA or C-ANCA patterns alone is not specific for the diagnosis of Lorena's Granulomatosis (WG) or microscopic polyangiitis. Decisions about treatment should not be based solely on ANCA IFA results. The [employer] ANCA [employer] Consensus recommends follow up testing of positive sera with both ND-3 and MPO-ANCA enzyme immunoassays. As many as 5% serum samples are positive only by EIA. Ref. AM J Clin Pathol 1999;111:507-513. Atypical p-ANCA Titer <1:20 Neg:<1:20 titer 08/02/2020 4:10 PM CHEMICAL BLENDER [facility] ([facility]) Comment: The atypical pANCA pattern has been observed in a significant percentage of patients with ulcerative colitis, primary sclerosing cholangitis and autoimmune hepatitis. Blood BLOOD SPECIMEN / Unknown Venipuncture / Unknown 07/29/2020 4:47 PM CHEMICAL BLENDER 07/29/2020 5:00 PM CHEMICAL BLENDER Narrative [facility] ([facility]) - 08/02/2020 4:10 PM CHEMICAL BLENDER Performed at: - [address] [id number] Burial Vault Setter: Cee Dowell MD, Phone: [phone] [facility]formed at: - [facility] [address] [place], [place] [id number] Burial Vault Setter: Jeb Hood PhD, Phone: [phone] Rosi Tuttle MD LAB - CHEMISTRY RENE VALENCIA [facility] ([facility]) [address] [place] [address] * TROPONIN I (07/29/2020 4:47 PM CHEMICAL BLENDER) Only the most recent of3 resultswithin the time period is included. Troponin I 0.025 <0.038 ng/mL 07/29/2020 5:40 PM CHEMICAL BLENDER [facility] Blood BLOOD SPECIMEN / Unknown Venipuncture / Unknown 07/29/2020 4:47 PM CHEMICAL BLENDER 07/29/2020 5:01 PM CHEMICAL BLENDER Anayeli Copeland MD LAB - CHEMISTRY RENE VALENCIA Performing Organization Address City/[facility]/ZIP Co de Phone Number [facility] [address] [place] [phone] * TRINO BLOOD SCREEN W/REFLEX TITER (07/29/2020 4:47 PM CHEMICAL BLENDER) TRINO Negative Negative 07/31/2020 1:11 PM CHEMICAL BLENDER [facility] Blood BLOOD SPECIMEN / Unknown Venipuncture / Unknown 07/29/2020 4:47 PM CHEMICAL BLENDER 07/29/2020 5:00 PM CHEMICAL BLENDER Narrative [facility] - 07/31/2020 1:11 PM CHEMICAL BLENDER Methodology: Indirect Immunofluorescence Assay (IFA) utilizing Hep-2-Gamma cells. Rosi Tuttle MD LAB - CHEMISTRY RENE VALENCIA [facility] [address] [place] [address] * COMPLEMENT C4 (07/29/2020 4:47 PM CHEMICAL BLENDER) Pathologist [facility] Complement C4 42 15 - 53 mg/dL 07/30/2020 6:49 PM CHEMICAL BLENDER [facility] Blood BLOOD SPECIMEN / Unknown Venipuncture / Unknown 07/29/2020 4:47 PM CHEMICAL BLENDER 07/29/2020 5:00 PM CHEMICAL BLENDER Rosi Tuttle MD LAB - SEROLOGY ORDER LINDA Performing Organization Address [facility]/ZIP Co de Phone Number [facility] [address] [place] [phone] * COLLEEN BLOOD PANEL (07/29/2020 4:47 PM CHEMICAL BLENDER) Pathologist [facility] Comment Path Review Pathologist has reviewed results. 08/01/2020 2:03 PM CHEMICAL BLENDER [facility] Performing Site Reported Performed at [facility], reported by [facility] 08/01/2020 2:03 PM CHEMICAL BLENDER [facility] Comment: Performed by: [facility] [address] [place], [place] [address] Resulted by: [facility] [address] [place], [place] [address] Comment See Report See Separate Pathology Report 08/01/2020 2:03 PM CHEMICAL BLENDER [facility] Blood BLOOD SPECIMEN / Unknown Venipuncture / Unknown 07/29/2020 4:47 PM CHEMICAL BLENDER 07/29/2020 5:00 PM CHEMICAL BLENDER Narrative [facility] - 08/01/2020 2:03 PM CHEMICAL BLENDER PATHOLOGISTS INTERPRETIVE COMMENTS WILL BE PLACED ON SEPARATE REPORT. Rosi Tuttle MD LAB - CHEMISTRY RENE [facility] [address] [place] [address] * (ABNORMAL) PROTEIN ELECTROPHORESIS BLOOD (07/29/2020 4:47 PM CHEMICAL BLENDER) Pathologist [facility] Protein Total 6.3 gm/dL 08/01/2020 2:01 PM [facility] Albumin SPE 3.0(L) 3.9 - 4.9 gm/dl 08/01/2020 2:01 PM [facility] Alpha-1 Globulin 0.28 0.2 - 0.5 gm/dL 08/01/2020 2:01 PM [facility] Wyptv-1-Amllml in 1.16(H) 0.4 - 0.8 gm/dL 08/01/2020 2:01 PM [facility] LABORATORY Beta-Globulin 1.14(H) 0.5 - 0.9 gm/dL 08/01/2020 2:01 PM [facility] Gamma Globulin 0.77 0.7 - 1.4 gm/dL 08/01/2020 2:01 PM [facility] Albumin/Globul in Ratio 0.88 08/01/2020 2:01 PM [facility] Performing Site Reported Performed at [facility], reported by [facility] 08/01/2020 2:01 PM [facility] Comment: Performed by: [facility] [address] [place] [id number] Resulted by: [address] [address] Blood BLOOD SPECIMEN / Unknown Venipuncture / Unknown 07/29/2020 4:47 PM CHEMICAL BLENDER 07/29/2020 5:00 PM CHEMICAL BLENDER Narrative [facility] - 08/01/2020 2:01 PM CHEMICAL BLENDER PATHOLOGISTS INTERPRETIVE COMMENTS WILL BE PLACED ON SEPARATE REPORT. Rosi Tuttle MD LAB - CHEMISTRY RENE VALENCIA [facility] [address] [place] [address] * COMPLEMENT C3 (07/29/2020 4:47 PM CHEMICAL BLENDER) Complement C3 153 82 - 185 mg/dL 07/30/2020 6:49 PM [facility] Blood BLOOD SPECIMEN / Unknown Venipuncture / Unknown 07/29/2020 4:47 PM CHEMICAL BLENDER 07/29/2020 5:00 PM CHEMICAL BLENDER Rosi Tuttle MD LAB - CHEMISTRY ORDE ANNIE [facility] [place] [address] * (ABNORMAL) HEPATITIS B SURFACE ANTIBODY QUANT (07/29/2020 1:34 PM CHEMICAL BLENDER) Hepatitis B Virus Surface Antibody Quantitative 11.28(H) 0.00 - 7.99 mIU/ml 07/30/2020 7:59 PM CHEMICAL BLENDER [facility] HBsAb Indetermi cara(A) Non Reactive 07/30/2020 7:59 PM CHEMICAL BLENDER [facility] Blood BLOOD SPECIMEN / Unknown Venipuncture / Unknown 07/29/2020 1:34 PM CHEMICAL BLENDER 07/29/2020 1:34 PM CHEMICAL BLENDER Narrative [facility] - 07/30/2020 7:59 PM CHEMICAL BLENDER The immune status of the individual should be further assessed by considering other factors, such as clinical status, follow-up testing, associated risk factors, and the use of additional diagnostic information. Rosi Tuttle MD LAB - SEROLOGY ORDER LINDA Performing Organization Address City/[facility] Co de Phone Number [facility] [address] [place] [address] * XR CHEST FOR PICC PLMT (07/29/2020 11:24 AM CHEMICAL BLENDER) Anatomical Region Laterality Modality Chest Radiographic Karli ging 07/29/2020 11:2 6 AM CHEMICAL BLENDER Impressions 07/29/2020 11:27 AM CHEMICAL BLENDER Low lung volumes *Reading Radiologist: Ernie Fuller on 07/29/2020 at 11:27 AM Narrative 07/29/2020 11:27 AM CHEMICAL BLENDER Chest AP portable INDICATION: Aftercare central line [...] RDERABLES * Central Line (07/29/2020 10:41 AM CHEMICAL BLENDER) Narrative Donovan Freedman MD - 07/29/2020 10:41 AM CHEMICAL BLENDER Donovan Freedman MD 07/29/2020 10:46 AM Central [...] RIGHT 2VW OR MORE (07/29/2020 10:33 AM CHEMICAL BLENDER) Anatomical Region Laterality Modality Upper Extremity Radiographic Karli ging 07/29/2020 10:3 4 AM CHEMICAL BLENDER Impressions 07/29/2020 10:37 AM CHEMICAL BLENDER Degenerative changes *Reading Radiologist: Ernie Fuller on 07/29/2020 at 10:37 AM Narrative 07/29/2020 10:37 AM CHEMICAL BLENDER Right shoulder 3 views INDICATION: Right shoulder [...] ONLY REFLEX TO CULTURE (07/29/2020 5:10 AM CHEMICAL BLENDER) Reflex Status Culture to follow 07/29/2020 5:28 AM CHEMICAL BLENDER [facility] RBC UA 0-2 None Seen, 0-2, 3-5 # /hpf 07/29/2020 5:28 AM CHEMICAL BLENDER [facility] WBC UA 11-20(A) None Seen, 0-5 # /hpf 07/29/2020 5:28 AM CHEMICAL BLENDER [facility] Bacteria UA None Seen None Seen 07/29/2020 5:28 AM CHEMICAL BLENDER [facility] Squamous Epithelial Cells 0-2 None Seen, 0-2, 3-5 /hpf 07/29/2020 5:28 AM CHEMICAL BLENDER [facility] Mucus UA 1+ /LPF 07/29/2020 5:28 AM CHEMICAL BLENDER [facility] Hyaline Casts 3-5(A) None Seen, 0-2 # /lpf 07/29/2020 5:28 AM CHEMICAL BLENDER [facility] Urine URINE SPECIMEN OBTAINED BY CLEAN CATCH PROCEDURE / Unknown Collection / Unknown 07/29/2020 5:10 AM CHEMICAL BLENDER 07/29/2020 5:13 AM CHEMICAL BLENDER Narrative [facility] - 07/29/2020 5:28 AM CHEMICAL BLENDER Anayeli Copeland MD LAB - URINALYSIS ORD ERABLES [facility] [address] [place] [address] * (ABNORMAL) URINALYSIS REFLEX MICROSCOPIC REFLEX CULTURE (07/29/2020 5:10 AM CHEMICAL BLENDER) Color UA Yellow Straw, Yellow 07/29/2020 5:28 AM [facility] Clarity UA Slt Cloudy(A) Clear 07/29/2020 5:28 AM [facility] Glucose UA Negative Negative 07/29/2020 5:28 AM [facility] Bilirubin UA Negative Negative 07/29/2020 5:28 AM [facility] Comment: Ictotest negative Lot: [id number] EXP: 08/2021 Ketone UA Negative Negative 07/29/2020 5:28 AM [facility] Specific [place] UA 1.021 1.005 - 1.030 07/29/2020 5:28 AM [facility] Blood UA Negative Negative 07/29/2020 5:28 AM [facility] pH UA 5.0 5.0 - 8.0 pH 07/29/2020 5:28 AM [facility] Protein UA 1+(A) Negative 07/29/2020 5:28 AM [facility] Urobilinogen UA Negative Negative mg/dL 07/29/2020 5:28 AM [facility] Nitrite UA Negative Negative 07/29/2020 5:28 AM [facility] Leukocyte UA 1+(A) Negative 07/29/2020 5:28 AM [facility] Urine Microscopy Urine microscopy to follow 07/29/2020 5:28 AM [facility] Reflex Status Culture to follow 07/29/2020 5:28 AM [facility] Urine URINE SPECIMEN OBTAINED BY CLEAN CATCH PROCEDURE / Unknown Collection / Unknown 07/29/2020 5:10 AM CHEMICAL BLENDER 07/29/2020 5:13 AM CHEMICAL BLENDER Narrative [facility] - 07/29/2020 5:28 AM CHEMICAL BLENDER Anayeli Copeland MD LAB - URINALYSIS ORD ERABLES Performing Organization Address [facility] de Phone Number [facility] [address] [place] [address] * CULTURE URINE (07/29/2020 5:10 AM CHEMICAL BLENDER) Culture Urine <10,000 CFU/mL urogenital kaelyn DA 07/30/2020 1:26 PM CHEMICAL BLENDER [facility] Urine URINE SPECIMEN OBTAINED BY CLEAN CATCH PROCEDURE / Unknown Collection / Unknown 07/29/2020 5:10 AM CHEMICAL BLENDER 07/29/2020 5:13 AM CHEMICAL BLENDER Anayeli Copeland MD LAB - MICROBIOLOGY O RDERABLES Performing Organization Address [facility] de Phone Number [facility]CRO[facility] [address] [place] [id number] [place] [address] * SODIUM URINE RANDOM (07/29/2020 5:10 AM CHEMICAL BLENDER) Sodium Urine 36 mmol/L 07/29/2020 5:32 AM CHEMICAL BLENDER [facility] Urine URINE SPECIMEN OBTAINED BY CLEAN CATCH PROCEDURE / Unknown Collection / Unknown 07/29/2020 5:10 AM CHEMICAL BLENDER 07/29/2020 5:13 AM CHEMICAL BLENDER Anayeli Copeland MD LAB - URINE CHEMISTR Y ORDERABLES Performing Organization Address [facility] de Phone Number [facility] [address] [place] [address] * OSMOLALITY URINE (07/29/2020 5:10 AM CHEMICAL BLENDER) Osmolality Urine 365 50-1,200 mOsm/kg 07/29/2020 5:23 AM CHEMICAL BLENDER [facility] Urine URINE SPECIMEN OBTAINED BY CLEAN CATCH PROCEDURE / Unknown Collection / Unknown 07/29/2020 5:10 AM CHEMICAL BLENDER 07/29/2020 5:13 AM CHEMICAL BLENDER Anayeli Copeland MD LAB - URINE CHEMISTR Y ORDERABLES Performing Organization Address City/[facility]/ZIP Co de Phone Number [facility] [address] [place] [address] * CREATININE URINE RANDOM (07/29/2020 5:10 AM CHEMICAL BLENDER) Creatinine Urine 337.23 mg/dL 07/29/2020 5:33 AM CHEMICAL BLENDER [facility] Urine URINE SPECIMEN OBTAINED BY CLEAN CATCH PROCEDURE / Unknown Collection / Unknown 07/29/2020 5:10 AM CHEMICAL BLENDER 07/29/2020 5:13 AM CHEMICAL BLENDER Anayeli Copeland MD LAB - URINE CHEMISTR Y ORDERABLES Performing Organization Address [facility] Co de Phone Number [facility] [address] [place] [address] * CT RENAL STONE PROTOCOL (07/29/2020 3:07 AM CHEMICAL BLENDER) Anatomical Region Laterality Modality Abdomen Computed Tomogra phy 07/29/2020 8:46 AM CHEMICAL BLENDER Impressions 07/29/2020 8:51 AM CHEMICAL BLENDER Fatty liver 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 Acute renal failure. Hyperkalemia. TECHNIQUE: 3 mm images through the abdomen and pelvis noncontrast . [facility] interpreted the exam and sent a [...] through the abdomen and pelvis noncontrast . [facility] interpreted the exam and sent a [...] ORDERABLES * EKG 12-LEAD (07/29/2020 2:52 AM CHEMICAL BLENDER) Only the most recent of2 resultswithin the time period is included. Ventricular Rate 101 BPM [facility] Atrial Rate 101 BPM [facility] P-R Interval 142 ms [facility] QRS Duration ms 100 ms [facility] Q-T Interval ms 332 ms [facility] QTC Calculation (Bezet) 430 ms [facility] Calculated P [place] 52 degrees [facility] Calculated R [place] 26 degrees [facility] Calculated T [place] 51 degrees [facility] Interpretation EKG Sinus tachycardia Low voltage QRS Borderline ECG When compared with ECG of 14-OCT-2019 10:47, No significant change was found Confirmed by JEREMIE MAURER MD ([id number]) on 07/31/2020 8:44:54 PM [facility] MUSE 07/29/2020 2:52 AM CHEMICAL BLENDER 07/31/2020 8:44 PM CHEMICAL BLENDER Anayeli Copeland MD ECG ORDERABLES [facility] MUSE * (ABNORMAL) COMPREHENSIVE METABOLIC PANEL (07/29/2020 2:42 AM CHEMICAL BLENDER) Only the most recent of2 resultswithin the time period is included. Glucose 104 70 - 105 mg/dL 07/29/2020 3:05 AM [facility] Sodium 138 136 - 145 mmol/L 07/29/2020 3:05 AM [facility] Potassium 5.4(H) 3.5 - 5.1 mmol/L 07/29/2020 3:05 AM [facility] Chloride 107 98 - 107 mmol/L 07/29/2020 3:05 AM [facility] CO2 19(L) 23 - 31 mmol/L 07/29/2020 3:05 AM [facility] Calcium 8.7 8.4 - 10.4 mg/dL 07/29/2020 3:05 AM [facility] Anion Gap 12 8 - 18 mmol/L 07/29/2020 3:05 AM [facility] Comment:Attention clinician: Reference Range change. BUN 102(H) 8.4 - 25.7 mg/dL 07/29/2020 3:05 AM [facility] Creatinine 5.82(H) 0.72 - 1.25 mg/dL 07/29/2020 3:05 AM [facility] Alkaline Phosphatase 85 40 - 150 U/L 07/29/2020 3:05 AM [facility] Comment:Attention clinician: Reference Range change. ALT 30 0 - 61 U/L 07/29/2020 3:05 AM [facility] AST 35(H) 5 - 34 U/L 07/29/2020 3:05 AM [facility] Protein Total 6.7 6.4 - 8.3 gm/dL 07/29/2020 3:05 AM CHEMICAL BLENDER [facility] Albumin 3.8 3.5 - 5.2 gm/dL 07/29/2020 3:05 AM CHEMICAL BLENDER [facility] Bilirubin Total 0.5 0.2 - 1.2 mg/dL 07/29/2020 3:05 AM CHEMICAL BLENDER [facility] Comment:Attention clinician: Reference Range change. eGFR by MDRD 10(L) >60 mL/min/1.7 3m2 07/29/2020 3:05 AM CHEMICAL BLENDER [facility] eGFR by MDRD 12(L) >60 mL/min/1.7 3m2 07/29/2020 3:05 AM CHEMICAL BLENDER [facility] Blood BLOOD SPECIMEN / Unknown Venipuncture / Unknown 07/29/2020 2:42 AM CHEMICAL BLENDER 07/29/2020 2:45 AM CHEMICAL BLENDER Anayeli Copeland MD LAB - CHEMISTRY RENE VALENCIA [facility] Organization Address City/State/[facility] Co de Phone Number [facility] [address] [place] [address] * ETT Placement (03/23/2019 10:39 AM CDT) Narrative Akiko Haney APRN-CRNA - 03/23/2019 10:39 AM CDT Akiko Haney APRN-CRNA 03/23/2019 10:41 AM Endotracheal Tube Placement: Patient Location: OR. Intubation Event Date/Time: 03/23/2019 10:29 AM Procedure: intubation (51462). Procedure Section: Sedation: under general anesthesia. Indications [...] AM. Staff Section Anesthesia Provider: Akiko Haney, AUTOMOTIVE TIRE TESTING SUPERVISOR-JOSHUA, Performed the procedure Tavo Marquez MD GENERAL ANESTHESIA O RDERABLES * GROSS + MICRO EXAM (STL) (03/23/2019 9:10 AM CDT) Case Report Surgical Pathology Report Case: [id number] Authorizing Provider: Jamie Rivas MD Collected: 03/23/2019 09:10 AM Ordering Location: [facility] Jojo Operative Received: 03/23/2019 01:11 PM Pathologist: Carl Casper MD Specimen: Gallbladder, GALLBLADDER 03/25/2019 11:49 AM CDT [facility] Final Diagnosis A. Gallbladder, cholecystectomy: -- Chronic cholecystitis -- Cholelithiasis -- Cholesterolosis AB/ns 03/25/2019 11:49 AM CDT [facility] Gross Description Received in formalin in [...] gallbladder wall measures 0.2 cm in thickness. Stationary Equipment Mechanic sections are submitted in cassette A1 CH/scs 03/25/2019 11:49 AM CDT [facility] Microscopic Description The sections of the gallbladder show slight chronic inflammation, cholesterolosis, but no Rokitansky-Aschoff sinuses or dysplasia. AB/ns 03/25/2019 11:49 AM CDT [facility] Disclaimer All histochemical and/or immunohistochemical results are interpreted with controls that demonstrate appropriate staining reactions before reporting results. Note on use of immunocytochemistry reagents: This test was developed and its performance characteristic determined by [facility], Department of Laboratory Medicine. It has not been cleared or approved by the U.S. Food and Drug Administration (FDA). The FDA has determined that such clearance or approval is not necessary. The test is used for clinical purpose. It should not be regarded as investigational or for research. This laboratory is certified to perform high complexity testing. 03/25/2019 11:49 AM CDT [facility] Embedded Images 03/25/2019 11:49 AM CDT [facility] Pathology/Cytolo gy ENTIRE GALLBLADDER / Unknown 03/23/2019 9:10 AM CDT 03/23/2019 1:11 PM CDT Jamie Rivas MD LAB - PATHOLOGY/CYTO LOGY ORDERABLES [facility] [address] [place] [address] * LAB RESULTS ORDER (02/24/2019) Jamie Rivas [...] PM CDT Narrative Resulting Agency Comment [facility] [address] [id number] Sanaz Harrison MD LAB - CHEMISTRY ORD [...] PM CDT Narrative Resulting Agency Comment [facility] [place] [address] [facility] [id number] Sanaz Harrison MD LAB - CHEMISTRY ORD ERABLES [facility] INSURANCE BILL * XR CERVICAL SPINE 2 OR 3 VW (07/04/2010 12:21 PM CHEMICAL BLENDER) Anatomical Region Laterality Modality Spine Radiographic Karli ging 07/04/2010 12:5 7 PM CHEMICAL BLENDER Narrative 07/04/2010 1:31 PM CHEMICAL BLENDER CERVICAL SPINE - FOUR VIEWS INDICATION: Neck [...] LABORATORY Character UA CLEAR [facility] Specific [place] UA 1.030 1.005 - 1.0300 [facility] pH UA 5.5 4.6 - 8.0 pH Units [facility] Leukocyte UA NEGATIVE Negative /ul [facility] Nitrite UA NEGATIVE Negative [facility] Protein UA NEGATIVE Negative mg/dl [facility] Glucose UA NEGATIVE Normal mg/dl [facility] Ketone UA NEGATIVE Negative mg/dl [facility] Urobilinogen UA 1.0 Normal Yaneth Units [facility] Bilirubin UA NEGATIVE Negative mg/dl [facility] Blood UA NEGATIVE Negative /ul [facility] WBC UA <5 /HPF [facility] RBC UA <5 /HPF [facility] Epithelial Cell UA <5 /HPF [facility] Casts UA <2 /LPF [facility] Bacteria UA NEGATIVE [facility] URINE / Unknown 01/22/2010 3 :05 PM CDT 01/22/2010 3:54 PM CDT Ricardo Singleton MD LAB - URINALYSIS ORD ERABLES [facility] [address] [place] [address] * TYPE + SCREEN PANEL (01/22/2010 3:05 PM CDT) ABO Rh O Neg [facility] Antibody Screen Neg Negative [facility] BLOOD SPECIMEN / Unknown 01/22/2010 3:05 PM CDT 01/22/2010 3:49 PM CDT Ricardo Singleton MD LAB - BLOOD BANK ORD [facility] Performing Organization Address [facility] de Phone Number [facility] [address] [place] [address] * HGB HCT PANEL (01/22/2010 3:05 PM CDT) Hemoglobin 13.2 13.0 - 18.0 gm/dl [facility] Hematocrit 40.0 39.0 - 54.0 % [facility] BLOOD SPECIMEN / Unknown 01/22/2010 3:05 PM CDT 01/22/2010 3:49 PM CDT Ricardo Singleton MD LAB - HEMATOLOGY ORD ERABLES Performing Organization Address [facility] de Phone Number [facility] [address] [place] [address] * NUC BONE SCAN LIMITED AREA (01/17/2010 [...] Ricardo Singleton MD NM ORDERABLES Care Teams Compensation/Benefits Specialist Relationship Specialty Start Date End Date Armani Crooks MD [address] [place] [id number] PCP - General 04/20/22 Sandeep Ortiz MD Urology 10/18/14
--- OUTSIDE RECORDS SUMMARY | 2024-07-19 14:43 | XMS_ITS | Referral Summary ---
Author Organization [facility] Address [address] [facility] [place] [address] Care Team Providers Care Welder/Installer Name Role Phone Sandeep Ortiz MD Unavailable [phone] Armani Crooks MD Primary Care Provider [phone] Source Comments [facility],non-owned Affiliates and Associated Physician Practices is amultiple site organization consisting of ambulatory clinics and hospital sitesin [place], [place], [place] and [place]. This disclosure is being madepursuant to the Care Everywhere program and may not contain all information available regarding this patient. Last updated 18.[facility] Allergies Active Allergy Reactions Criticality Noted Date [...] Comments Blood Pressure 162/95 08/01/2020 8:56 AM [facility] Pulse 70 08/01/2020 8:56 AM [facility] Temperature 36.3 C (97.3 F) 08/01/2020 8:56 AM [facility] Respiratory Rate 18 08/01/2020 8:56 AM [facility] Oxygen Saturation 98% 08/01/2020 8:56 AM [facility] Inhaled Oxygen Concentration - - Weight 145.2 kg (320 lb) 07/29/2020 2:29 AM [facility] Height 180.3 cm (5' 11 ) 07/29/2020 2:29 AM [facility] Body Mass Index 44.63 07/29/2020 2:29 AM [facility] Functional Status Functional Status Response Date of [...] < 140/90 Blood Pressure 162/95(2020 8:56 AM [facility]) No Vale Rogers Procedures Procedure Name Priority Date/Time Associated Diagnosis Comments RENAL FUNCTION PANEL AM Draw 08/01/2020 4:02 AM [facility] HEPATITIS SCREEN ACUTE STAT 07/29/2020 4:51 PM [facility] LIPID PROFILE Routine 11/11/2013 9:21 AM CDT Mixed hyperlipidemia from Last 3 Months or Most Recently Relevant to Health Maintenance Results * RENAL FUNCTION PANEL (08/01/2020 4:02 AM [facility]) [facility] Glucose 96 70 - 105 mg/dL 08/01/2020 4:42 AM [facility] Sodium 140 136 - 145 mmol/L 08/01/2020 4:42 AM [facility] Potassium 3.6 3.5 - 5.1 mmol/L 08/01/2020 4:42 AM [facility] Chloride 105 98 - 107 mmol/L 08/01/2020 4:42 AM [facility] CO2 24 23 - 31 mmol/L 08/01/2020 4:42 AM [facility] Calcium 9.2 8.4 - 10.4 mg/dL 08/01/2020 4:42 AM [facility] Anion Gap 11 8 - 18 mmol/L 08/01/2020 4:42 AM [facility] Comment:Attention clinician: Reference Range change. BUN 25 8.4 - 25.7 mg/dL 08/01/2020 4:42 AM [facility] Creatinine 0.89 0.72 - 1.25 mg/dL 08/01/2020 4:42 AM [facility] Albumin 3.7 3.5 - 5.2 gm/dL 08/01/2020 4:42 AM [facility] Phosphorus 3.5 2.3 - 4.7 mg/dL 08/01/2020 4:42 AM [facility] Comment:Attention clinician: Reference Range change. eGFR by MDRD >60 >60 mL/min/1.7 3m2 08/01/2020 4:42 AM [facility] eGFR by MDRD >60 >60 mL/min/1.7 3m2 08/01/2020 4:42 AM [facility] Blood BLOOD SPECIMEN / Unknown Venipuncture / Unknown 08/01/2020 4:02 AM [facility] 08/01/2020 4:18 AM [facility] Rosi Tuttle MD LAB - CHEMISTRY RENE VALENCIA [facility] [address] [place] [address] * HEPATITIS SCREEN ACUTE (07/29/2020 4:51 PM [facility]) HAV Antibody IgM Non Reactive Non Reactive 07/29/2020 5:51 PM [facility] HBsAg Non Reactive Non Reactive 07/29/2020 5:51 PM [facility] HBc Antibody IgM Non Reactive Non Reactive 07/29/2020 5:51 PM [facility] HCV Antibody Screen Non Reactive Non Reactive 07/29/2020 5:51 PM [facility] Blood BLOOD SPECIMEN / Unknown Venipuncture / Unknown 07/29/2020 4:51 PM [facility] 07/29/2020 5:01 PM [facility] Narrative [facility] - 07/29/2020 5:51 PM [facility] Non Reactive - Antibodies to Hepatitis C virus (HCV) were not detected, result does not exclude early acute HCV infection. Rosi Tuttle MD LAB - CHEMISTRY RENE VALENCIA [facility] [address] [place] [id number] * (ABNORMAL) LIPID PROFILE (11/11/2013 9:21 AM [...] PM CDT Narrative Resulting Agency Comment [facility] [address] [facility] [phone] Sanaz Harrison MD LAB - CHEMISTRY KAEL [...] 7:44 PM 02/02/2010 10:39 PM Care Teams Welder/Installer Relationship Specialty Start Date End Date Armani Crooks MD [address] [place] [address] PCP - General 04/20/22 Sandeep Ortiz MD Urology 10/18/14
--- OUTSIDE RECORDS SUMMARY | 2024-07-19 14:43 | XMS_ITS | Clinical Summary ---
Author Organization [facility] Address [address] [address] Care Team Providers Care Supervisor [employer] Name Role Phone Sandeep Ortiz MD Unavailable [phone] Armani Crooks MD Primary Care Provider [phone] Source Comments [facility],non-owned Affiliates and Associated Physician Practices is amultiple site organization consisting of ambulatory clinics and hospital sitesin [place], [place], [place] and [place]. This disclosure is being madepursuant to the Care Everywhere program and may not contain all information available regarding this patient. Last updated 18.[facility] Allergies Active Allergy Reactions Criticality Noted [...] Comments Blood Pressure 162/95 08/01/2020 8:56 AM SECONDARY SPECIAL EDUCATION TEACHER Pulse 70 08/01/2020 8:56 AM SECONDARY SPECIAL EDUCATION TEACHER Temperature 36.3 C (97.3 F) 08/01/2020 8:56 AM SECONDARY SPECIAL EDUCATION TEACHER Respiratory Rate 18 08/01/2020 8:56 AM SECONDARY SPECIAL EDUCATION TEACHER Oxygen Saturation 98% 08/01/2020 8:56 AM SECONDARY SPECIAL EDUCATION TEACHER Inhaled Oxygen Concentration - - Weight 145.2 kg (320 lb) 07/29/2020 2:29 AM SECONDARY SPECIAL EDUCATION TEACHER Height 180.3 cm (5' 11 ) 07/29/2020 2:29 AM SECONDARY SPECIAL EDUCATION TEACHER Body Mass Index 44.63 07/29/2020 2:29 AM SECONDARY SPECIAL EDUCATION TEACHER Plan of Treatment Health Maintenance Due Date [...] < 140/90 Blood Pressure 162/95(2020 8:56 AM SECONDARY SPECIAL EDUCATION TEACHER) No Vale Rogers Procedures Procedure Name Priority Date/Time Associated Diagnosis Comments RENAL FUNCTION PANEL AM Draw 08/01/2020 4:02 AM SECONDARY SPECIAL EDUCATION TEACHER HEPATITIS SCREEN ACUTE STAT 07/29/2020 4:51 PM SECONDARY SPECIAL EDUCATION TEACHER LIPID PROFILE Routine 11/11/2013 9:21 AM CDT Mixed hyperlipidemia from Last 3 Months or Most Recently Relevant to Health Maintenance Results * RENAL FUNCTION PANEL (08/01/2020 4:02 AM SECONDARY SPECIAL EDUCATION TEACHER) Glucose 96 70 - 105 mg/dL 08/01/2020 4:42 AM SECONDARY SPECIAL EDUCATION TEACHER [facility] Sodium 140 136 - 145 mmol/L 08/01/2020 4:42 AM SECONDARY SPECIAL EDUCATION TEACHER [facility] Potassium 3.6 3.5 - 5.1 mmol/L 08/01/2020 4:42 AM SECONDARY SPECIAL EDUCATION TEACHER [facility] Chloride 105 98 - 107 mmol/L 08/01/2020 4:42 AM SECONDARY SPECIAL EDUCATION TEACHER [facility] CO2 24 23 - 31 mmol/L 08/01/2020 4:42 AM SECONDARY SPECIAL EDUCATION TEACHER [facility] Calcium 9.2 8.4 - 10.4 mg/dL 08/01/2020 4:42 AM SECONDARY SPECIAL EDUCATION TEACHER [facility] Anion Gap 11 8 - 18 mmol/L 08/01/2020 4:42 AM SECONDARY SPECIAL EDUCATION TEACHER [facility] Comment:Attention clinician: Reference Range change. BUN 25 8.4 - 25.7 mg/dL 08/01/2020 4:42 AM SECONDARY SPECIAL EDUCATION TEACHER [facility] Creatinine 0.89 0.72 - 1.25 mg/dL 08/01/2020 4:42 AM SECONDARY SPECIAL EDUCATION TEACHER [facility] Albumin 3.7 3.5 - 5.2 gm/dL 08/01/2020 4:42 AM SECONDARY SPECIAL EDUCATION TEACHER [facility] Phosphorus 3.5 2.3 - 4.7 mg/dL 08/01/2020 4:42 AM SECONDARY SPECIAL EDUCATION TEACHER [facility] Comment:Attention clinician: Reference Range change. eGFR by MDRD >60 >60 mL/min/1.7 3m2 08/01/2020 4:42 AM SECONDARY SPECIAL EDUCATION TEACHER [facility] eGFR by MDRD >60 >60 mL/min/1.7 3m2 08/01/2020 4:42 AM SECONDARY SPECIAL EDUCATION TEACHER [facility] Blood BLOOD SPECIMEN / Unknown Venipuncture / Unknown 08/01/2020 4:02 AM SECONDARY SPECIAL EDUCATION TEACHER 08/01/2020 4:18 AM SECONDARY SPECIAL EDUCATION TEACHER Rosi Tuttle MD LAB - CHEMISTRY RENE VALENCIA Performing Organization Address [facility] de Phone Number [facility] [address] [place] [phone] * HEPATITIS SCREEN ACUTE (07/29/2020 4:51 PM SECONDARY SPECIAL EDUCATION TEACHER) [facility] HAV Antibody IgM Non Reactive Non Reactive 07/29/2020 5:51 PM SECONDARY SPECIAL EDUCATION TEACHER [facility] HBsAg Non Reactive Non Reactive 07/29/2020 5:51 PM SECONDARY SPECIAL EDUCATION TEACHER [facility] HBc Antibody IgM Non Reactive Non Reactive 07/29/2020 5:51 PM SECONDARY SPECIAL EDUCATION TEACHER [facility] HCV Antibody Screen Non Reactive Non Reactive 07/29/2020 5:51 PM SECONDARY SPECIAL EDUCATION TEACHER [facility] Blood BLOOD SPECIMEN / Unknown Venipuncture / Unknown 07/29/2020 4:51 PM SECONDARY SPECIAL EDUCATION TEACHER 07/29/2020 5:01 PM SECONDARY SPECIAL EDUCATION TEACHER Narrative [facility] - 07/29/2020 5:51 PM SECONDARY SPECIAL EDUCATION TEACHER Non Reactive - Antibodies to Hepatitis C virus (HCV) were not detected, result does not exclude early acute HCV infection. Rosi Tuttle MD LAB - CHEMISTRY RENE VALENCIA Performing Organization Address [facility] Co de Phone Number [facility] [address] [place] [phone] * (ABNORMAL) LIPID PROFILE (11/11/2013 9:21 [...] PM CDT Narrative Resulting Agency Comment [facility] [address] [id number] Sanaz Harrison MD LAB - CHEMISTRY ORD [...] 7:44 PM 02/02/2010 10:39 PM Care Teams Supervisor [employer] Relationship Specialty Start Date End Date Armani Crooks MD [address] [place] [id number] PCP - General 04/20/22 Sandeep Ortiz MD Urology 10/18/14
[2024-07-19 14:53] LABS: Estimated Glomerular Filt Rate > 60
== END 2024-07-19 14:24 | disposition home or self-care (01) ==
PROVIDERS: PCP Family Medicine; Visit Provider Urology
DX: K43.9 Ventral hernia without obstruction or gangrene (principal); K42.9 Umbilical hernia without obstruction or gangrene; K76.0 Fatty (change of) liver, not elsewhere classified
CPT/HCPCS: 74177; Q9967

== ENCOUNTER 2025-05-31 12:41 | Outpatient (CLI) | payer MEDICARE, SELFPAY ==
--- NOTE | ~2025-05-31 | CT_ITS ---
EXAMINATION: CT brain wo con DATE: 05/31/2025 12:58 INDICATION: Repeated falls TECHNIQUE: Computed tomography (CT) of the head was performed without intravenous contrast. Sagittal and coronal reconstructions were performed. The mA was adjusted according to patient size. Iterative reconstruction technique was employed. The dose-length product was 681.00 mGy-cm. COMPARISON: head CT and brain MR dated 05/17/2015 FINDINGS: No fracture. No acute intracranial hemorrhage, acute infarction or abnormal extra axial fluid collection. Symmetric prominence of the sulci consistent with mild age-appropriate diffuse cerebral volume loss. Ventricles are normal and symmetric. No mass/mass effect. Mucosal thickening in the maxillary sinuses, mild on the left and moderate on the right. There is periapical erosions at the right maxilla surrounding the roots of one of the molars. The orbits and mastoid air cells are normal. IMPRESSION: 1. Normal aging brain. No fracture or acute intracranial process. Reviewed, dictated and finalized at location A. OR [employer]EN'S [employer]Y TO WE[employer]
--- OUTSIDE RECORDS SUMMARY | 2025-05-31 12:46 | XMS_ITS | Encounter Summary ---
Author Organization [facility] Address [address] [place] [address] Care Team Providers Care Assistant Warehouse Manager Name Role Phone Parker Cedillo MD Primary Care Provider [phone] Encounter Details Date Type Department Care Team (Late st Contact Info) Description 02/11/2024 People Publishing Message Enc [facility] Provider Action Needed Social History Tobacco [...] Sex Assigned at Male 07/05/2024 9:02 AM CONSERVATION AGENT Legal Sex Male 3:51 PM CDT Gender Identity Male 01/21/2025 5:02 PM CDT Sexual Orientation Not on file documented as of this encounter Plan of Treatment Not on file documented as of this encounter Visit Diagnoses Not on filedocumented in this encounter Additional Health Concerns Infection Onset Date Last Indicated Resolved Time COVID-19 Rule Out 12/07/2024 12/07/2024 12/07/2024 11:06 PM CDT documented as of this encounter Care Teams Assistant Warehouse Manager Relationship Specialty Start Date End Date Parker Cedillo MD [address] [place] [address] PCP - General FAMILY PRACTICE 11/28/22 documented as of this encounter
--- OUTSIDE RECORDS SUMMARY | 2025-05-31 12:48 | XMS_ITS | Encounter Summary ---
Author Organization [facility] Address [address] [place] [address] Care Team Providers Care Mainspring Torque Tester Name Role Phone Parker Cedillo MD Primary Care Provider [phone] Encounter Details Date Type Department Care Team (Late st Contact Info) Description 08/13/2023 [employer] Message Enc [facility] [facility] Provider Action Needed Social History Tobacco [...] Sex Assigned at Male 07/05/2024 9:02 AM DOCUMENTATION BILLING CLERK Legal Sex Male 3:51 PM CDT Gender [...] documented as of this encounter Care Teams Mainspring Torque Tester Relationship Specialty Start Date End Date Parker Cedillo MD [address] [place] [address] PCP - General FAMILY PRACTICE 11/28/22 documented as of this encounter
--- OUTSIDE RECORDS SUMMARY | 2025-05-31 12:48 | XMS_ITS | Encounter Summary ---
Author Organization [facility] Address [facility] [place] [address] Care Team Providers Care High Pressure Operator Name Role Phone Vinny Padilla Trino FORTE Primary Care Provider [phone] Leonard Mcnally MD Primary Care Provider [phone] Praker Cedillo MD Primary Care Provider [phone] Encounter Details Date Type Department Care Team (Late st Contact Info) Description 03/21/2022 [employer] [facility] Patient Accounts [address] [place] [address] [facility] Provider Monthly Credit Card Payment Social [...] Sex Assigned at Male 07/05/2024 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
--- OUTSIDE RECORDS SUMMARY | 2025-05-31 12:48 | XMS_ITS | Clinical Summary ---
Author Organization [facility] Address [address] [facility] [place] [address] Care Team Providers Care Juice Scaleman Name Role Phone Sandeep Ortiz MD Unavailable [phone] Armani Crooks MD Primary Care Provider [phone] Source Comments [facility],non-owned Affiliates and Associated Physician Practices is amultiple site organization consisting of ambulatory clinics and hospital sitesin [place], [place], [place] and [place]. This disclosure is being madepursuant to the Care Everywhere program and may not contain all information available regarding this patient. Last updated 18.[facility] Allergies Active Allergy Reactions Criticality Noted Date Comments Allopurinol Other 07/29/2020 Pt is unsure of what reaction is Medications * Be aware that medications may not be up to date on this document. Alwaysverify current medications with the patient. ROPINirole (REQUIP) 5 MG tablet Take 5 [...] with ROPINirole (REQUIP) 5 MG tablet Immunizations Immunization Administration Dates Next Due INFLUENZA VACCINE, TRIV. 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 Gender Identity Not on file Sexual Orientation Not on file Occupation Industry Job Start Date Job End Date disabled Not on file Not on file Not on file Last Filed Vital Signs Vital Sign Reading Time Taken Comments Blood Pressure 162/95 08/01/2020 8:56 AM EVENT MARKETING MANAGER Pulse 70 08/01/2020 8:56 AM EVENT MARKETING MANAGER Temperature 36.3 C (97.3 F) 08/01/2020 8:56 AM EVENT MARKETING MANAGER Respiratory Rate 18 08/01/2020 8:56 AM EVENT MARKETING MANAGER Oxygen Saturation 98% 08/01/2020 8:56 AM EVENT MARKETING MANAGER Inhaled Oxygen Concentration - - Weight 145.2 kg (320 lb) 07/29/2020 2:29 AM EVENT MARKETING MANAGER Height 180.3 cm (5' 11) 07/29/2020 2:29 AM EVENT MARKETING MANAGER Body Mass Index 44.63 07/29/2020 2:29 AM EVENT MARKETING MANAGER Plan of Treatment Health Maintenance Due Date [...] 50+ (1 of 1 - PCV) 2012 Respiratory Syncytial Virus (RSV) Vaccine Pt: or over 60 yrs (1 - Risk 50-74 years 1-dose series) 2012 ZOSTER VACCINE (1 of 2) 2012 LIPID TESTING 11/11/2018 11/11/2013, 11/0 11/2012, 11/23/2012 SCREENING FOR DIABETES 08/01/2023 , 08/01/2020, 07/31/2020, Additional history exists DEPRESSION SCREENING 06/09/2024 COVID-19 VACCINE (2 - 2024- season) 2025 07/14/2020 INFLUENZA VACCINE (#1) 2025 0, 03/23/2014, 04/14/2013 HEPATITIS C SCREENING Completed 07/29/2020 HEPATITIS B VACCINE Aged Out No longe r eligible based on patient's age to complete this topic HIB VACCINE Aged Out No longer eligi ble based on patient's age to complete this topic HPV VACCINE Aged Out No longer eligi ble based on patient's age to complete this topic MENINGOCOCCAL (Group B) VACCINE SHARED DECISION-MAKING Aged Out No longer eligible based on patient's age to complete this topic MENINGOCOCCAL GROUPS A/C/Y/W VACCINE Aged Out No longer eligible based on patient's age to complete this topic Goals Goal Patient Goal Type Associated Problems Recent Progress Patient-Stated? Author Blood Pressure < 140/90 Blood Pressure 162/95(2020 8:56 AM EVENT MARKETING MANAGER) Vale Bowen Procedures Procedure Name Priority Date/Time Associated Diagnosis Comments RENAL FUNCTION PANEL AM Draw 08/01/2020 4:02 AM EVENT MARKETING MANAGER HEPATITIS SCREEN ACUTE STAT 07/29/2020 4:51 PM EVENT MARKETING MANAGER LIPID PROFILE Routine 11/11/2013 9:21 AM CDT Mixed hyperlipidemia from Last 3 Months or Most Recently Relevant to Health Maintenance Results * RENAL FUNCTION PANEL (08/01/2020 4:02 AM EVENT MARKETING MANAGER) Glucose 96 70 - 105 mg/dL 08/01/2020 4:42 AM EVENT MARKETING MANAGER [facility] Sodium 140 136 - 145 mmol/L 08/01/2020 4:42 AM EVENT MARKETING MANAGER [facility] Potassium 3.6 3.5 - 5.1 mmol/L 08/01/2020 4:42 AM EVENT MARKETING MANAGER [facility] Chloride 105 98 - 107 mmol/L 08/01/2020 4:42 AM EVENT MARKETING MANAGER [facility] CO2 24 23 - 31 mmol/L 08/01/2020 4:42 AM EVENT MARKETING MANAGER [facility] Calcium 9.2 8.4 - 10.4 mg/dL 08/01/2020 4:42 AM EVENT MARKETING MANAGER [facility] Anion Gap 11 8 - 18 mmol/L 08/01/2020 4:42 AM EVENT MARKETING MANAGER [facility] Comment:Attention clinician: Reference Range change. BUN 25 8.4 - 25.7 mg/dL 08/01/2020 4:42 AM EVENT MARKETING MANAGER [facility] Creatinine 0.89 0.72 - 1.25 mg/dL 08/01/2020 4:42 AM EVENT MARKETING MANAGER [facility] Albumin 3.7 3.5 - 5.2 gm/dL 08/01/2020 4:42 AM EVENT MARKETING MANAGER [facility] Phosphorus 3.5 2.3 - 4.7 mg/dL 08/01/2020 4:42 AM EVENT MARKETING MANAGER [facility] Comment:Attention clinician: Reference Range change. eGFR by MDRD >60 >60 mL/min/1.7 3m2 08/01/2020 4:42 AM EVENT MARKETING MANAGER [facility] eGFR by MDRD >60 >60 mL/min/1.7 3m2 08/01/2020 4:42 AM EVENT MARKETING MANAGER [facility] Blood BLOOD SPECIMEN / Unknown Venipuncture / Unknown 08/01/2020 4:02 AM EVENT MARKETING MANAGER 08/01/2020 4:18 AM EVENT MARKETING MANAGER Rosi Tuttle MD LAB - CHEMISTRY ORDERABLES Fin al Result Performing Organization Address [facility] de Phone Number [facility] [address] [place] [address] * HEPATITIS SCREEN ACUTE (07/29/2020 4:51 PM EVENT MARKETING MANAGER) Pathologist [facility] HAV Antibody IgM Non Reactive Non Reactive 07/29/2020 5:51 PM EVENT MARKETING MANAGER [facility] HBsAg Non Reactive Non Reactive 07/29/2020 5:51 PM EVENT MARKETING MANAGER [facility] HBc Antibody IgM Non Reactive Non Reactive 07/29/2020 5:51 PM EVENT MARKETING MANAGER [facility] HCV Antibody Screen Non Reactive Non Reactive 07/29/2020 5:51 PM EVENT MARKETING MANAGER [facility] Blood BLOOD SPECIMEN / Unknown Venipuncture / Unknown 07/29/2020 4:51 PM EVENT MARKETING MANAGER 07/29/2020 5:01 PM EVENT MARKETING MANAGER Narrative [facility] - 07/29/2020 5:51 PM EVENT MARKETING MANAGER Non Reactive - Antibodies to Hepatitis C virus (HCV) were not detected, result does not exclude early acute HCV infection. Rosi Tuttle MD LAB - CHEMISTRY ORDERABLES Fin al Result [facility] [address] [place] [address] * (ABNORMAL) LIPID PROFILE (11/11/2013 9:21 AM [...] PM CDT Narrative Resulting Agency Comment [facility] [place] [address] [facility] [id number] Sanaz Harrison MD LAB - CHEMISTRY ORDERABLES Final Result [facility] INSURANCE BILL [address] [place] [phone] from Last 3 Months or Most Recently Relevant to Health Maintenance Insurance [facility] MANAGED MEDICARE ADV MEDICARE [facility] [address] MANAGED MEDICARE ADV Advance Directives * Full Code (Latest Code [...] 7:44 PM 02/02/2010 10:39 PM Care Teams Juice Scaleman Relationship Specialty Start Date End Date Armani Crooks MD [address] [place] [phone] PCP - General 04/20/22 Sandeep Ortiz MD Urology 10/18/14
== END 2025-05-31 12:42 | disposition home or self-care (01) ==
PROVIDERS: PCP Family Medicine; Visit Provider Nurse Practitioner Family
DX: R29.6 Repeated falls (principal); R26.89 Other abnormalities of gait and mobility; Z85.46 Personal history of malignant neoplasm of prostate
CPT/HCPCS: 70450